=== PATIENT | male | born 1935 | race Caucasian/White ===

== ENCOUNTER → 2020-02-09 10:00 | Outpatient (BNVA) | payer MEDICARE, BC, SELFPAY | PROVIDERS: Visit Provider Nurse Practitioner Family | DX: E03.9 Hypothyroidism, unspecified (principal); N40.0 Benign prostatic hyperplasia without lower urinary tract symptoms; E78.5 Hyperlipidemia, unspecified; Z13.1 Encounter for screening for diabetes mellitus | CPT/HCPCS: 80053; 80061; 84443; G0103 ==

== ENCOUNTER → 2020-02-24 10:08 | Outpatient (BNVA) | payer MEDICARE, BC, SELFPAY | PROVIDERS: PCP Nurse Practitioner Family; Referring Provider Nurse Practitioner Family; Visit Provider Urology | DX: N40.0 Benign prostatic hyperplasia without lower urinary tract symptoms (principal); R97.20 Elevated prostate specific antigen [PSA]; N20.1 Calculus of ureter; N40.1 Benign prostatic hyperplasia with lower urinary tract symptoms | CPT/HCPCS: 81003; 84153 ==

== ENCOUNTER → 2020-05-23 10:18 | Outpatient (BNVA) | payer MEDICARE, BC, SELFPAY | PROVIDERS: PCP Nurse Practitioner Family; Visit Provider Urology | DX: N40.1 Benign prostatic hyperplasia with lower urinary tract symptoms (principal); R97.20 Elevated prostate specific antigen [PSA] | CPT/HCPCS: 81003; 84153 ==

== ENCOUNTER → 2020-10-12 09:43 | Outpatient (BNVA) | payer MEDICARE, BC, SELFPAY | PROVIDERS: PCP Nurse Practitioner Family; Visit Provider Nurse Practitioner Family | DX: E03.9 Hypothyroidism, unspecified (principal); E55.9 Vitamin D deficiency, unspecified; Z13.220 Encounter for screening for lipoid disorders; Z79.899 Other long term (current) drug therapy | CPT/HCPCS: 80053; 80061; 82306; 84443 ==

== ENCOUNTER → 2020-11-21 09:58 | Outpatient (BNVA) | payer MEDICARE, BC, SELFPAY | PROVIDERS: PCP Nurse Practitioner Family; Visit Provider Urology | DX: N40.1 Benign prostatic hyperplasia with lower urinary tract symptoms (principal); R97.20 Elevated prostate specific antigen [PSA] | CPT/HCPCS: 81003; 84153 ==

== ENCOUNTER → 2020-12-25 10:36 | Outpatient (BNVA) | payer MEDICARE, BC, SELFPAY | PROVIDERS: PCP Nurse Practitioner Family; Visit Provider Nurse Practitioner Family | DX: H60.90 Unspecified otitis externa, unspecified ear (principal); H60.312 Diffuse otitis externa, left ear; R97.20 Elevated prostate specific antigen [PSA] | CPT/HCPCS: 84153 ==

== ENCOUNTER → 2021-01-02 14:13 | Outpatient (BNVA) | payer MEDICARE, BC, SELFPAY | PROVIDERS: PCP Nurse Practitioner Family; Visit Provider Urology | DX: R97.20 Elevated prostate specific antigen [PSA] (principal); N40.1 Benign prostatic hyperplasia with lower urinary tract symptoms | CPT/HCPCS: 81003 ==

== ENCOUNTER → 2021-03-25 08:34 | Outpatient (BNVA) | payer MEDICARE, BC, SELFPAY | PROVIDERS: PCP Nurse Practitioner Family; Visit Provider Urology | DX: Z01.89 Encounter for other specified special examinations (principal); E03.9 Hypothyroidism, unspecified; E55.9 Vitamin D deficiency, unspecified; R97.20 Elevated prostate specific antigen [PSA] | CPT/HCPCS: 82306; 84153; 84443 ==

== ENCOUNTER → 2021-04-04 11:17 | Outpatient (BNVA) | payer MEDICARE, BC, SELFPAY | PROVIDERS: PCP Nurse Practitioner Family; Visit Provider Urology | DX: N40.1 Benign prostatic hyperplasia with lower urinary tract symptoms (principal) | CPT/HCPCS: 81003 ==

== ENCOUNTER → 2021-04-18 11:12 | Outpatient (BNVA) | payer MEDICARE, BC, SELFPAY | PROVIDERS: PCP Nurse Practitioner Family; Visit Provider Urology | DX: R97.20 Elevated prostate specific antigen [PSA] (principal) | CPT/HCPCS: 88305 ==

== ENCOUNTER 2021-05-02 08:18 | Outpatient (CLI) | payer MEDICARE, BC, SELFPAY ==
--- NOTE | 2021-05-02 08:24 | CT_ITS ---
WS: [id number] CT ABDOMEN PELVIS TECHNIQUE: Noncontrast CT of the abdomen and contrast-enhanced CT of the abdomen and pelvis with lilly nal and sagittal reformatted images. CLINICAL INFORMATION: prostate cancer COMPARISON: Bone scan May 02, 2021 DLP: 1757.[address] scans at [facility] use at least one of these dose optimization techniques: automated e xposure control; mA and/or kV adjustment per patient size (includes targeted exams where dose is matc hed to clinical indication); or iterative reconstruction. FINDINGS: Slight atelectasis in the lung bases. Partially included nodule in the right upper lobe measuring 5.7 mm. Mild diffuse fatty infiltration liver. A few tiny hepatic cysts. Normal portal vein and splenic vein. Normal gallbladder. Normal spleen. Mild fatty atrophy of the pancreas. Small low-attenuation le lucie in the tail the pancreas measuring 8 mm. Normal GE junction. Adrenal glands are normal. Normal renal parenchymal enhancement. No hydronephrosis. Small left renal cyst. Normal caliber abdominal aorta. Mild aortic calcification. Enlarged calcified prostate measuring 3.2 x 4.6 CM. Mild bladder wall thickening likely due to bladde r outlet obstruction. Normal sigmoid colon. No evidence of small or large bowel destruction. Tiny fat-containing umbilical hernia. No periaortic or retroperitoneal lymphadenopathy. No inguinal lymphadenopathy. Small fat-cont aining left inguinal hernia. Small right perirectal lymph node measuring 5 mm. Normal excretion on the delayed images. No ureteral obstruction. Moderate spondylitic changes lumbar spine. Blastic lesions visualized in the pelvis as seen on bone scan compatible with metastatic disea se. Additional blastic lesions in the lower thoracic ribs compatible with metastatic disease. Sclerot ic lesion in the posterior elements left T9 vertebral body as seen on the bone scan. Additional suspe cted blastic metastatic lesion L2 superior end plate and right T12 pedicle. Additional tiny blastic l esions in the proximal right greater than left femurs. CT/CT abdomen pelvis wo/w [id number] IMPRESSION: 1. Diffuse prostate enlargement with central calcification and evidence of boogie dder outlet obstruction. Thickening of the seminal vesicles bilaterally. 2. Evidence of bony metastatic disease corresponding to the bone scan findings 3. 5.7 mm partially visualized nodule right upper lobe. Recommend further eval uation with CT chest. 4. Small right perirectal lymph node measuring 5 mm. 5. Small low-attenuation lesion in the tail of the pancreas measuring 8 mm. Re commend 3 month follow-up contrast enhanced CT abdomen pelvis versus further ev aluation with MRI pancreas without and with gadolinium enhancement. 6. No hydronephrosis in either kidney. Normal renal excretion. 7. Fat-containing left inguinal hernia.
--- NOTE | 2021-05-02 08:24 | NM_ITS ---
WS: [id number] NUCLEAR MEDICINE BONE SCAN Radiopharmaceutical: 26.6 Tc-99m MDP mCi IV Injection site: Antecubital Postinjection imaging delay: 1 hr CLINICAL INFORMATION: prostate cancer COMPARISON: None. FINDINGS: Bone lesions: Multiple metastatic lesions involving the posterior ribs bilaterally. Additional metast atic lesions involving the calvarium. Intense metastatic lesion involving the T9 vertebral body poste riorly as seen on the CT. Small focus of uptake involving the right T12 pedicle. Additional punctate foci of uptake involving the bony pelvis and more prominent involving the ilium and iliac wings bilat erally. Additional focal area of uptake involving the left mandible. Soft tissue contours: Normal. Kidneys: Normal. Other findings: Degenerative type uptake involving both AC joints and both shoulders bilaterally. NM/NM bone scan whole body* [id number] IMPRESSION: Evidence of bony metastatic disease involving the calvarium, proximal posterior ribs, lower thoracic vertebral bodies, and bony pelvis described above.
[2021-05-02 09:24] LABS: Blood Urea Nitrogen 18 mg/dL (8-23)
[2021-05-02] MEDS: iohexol 300 mg/mL 100 mL Btl IV (10:03)
--- NOTE | 2021-05-02 11:00 | XR_ITS ---
WS: [id number] THORACIC SPINE TECHNIQUE: AP and lateral views are performed. HISTORY: BONE SCAN COMPARISON COMPARISON: 05/02/2021 chest radiograph. Osteopenia and thoracolumbar scoliosis. Lobulated sclerotic area projects over the RIGHT lateral T8 v ertebral body. I suspect this is probably granulomata. The thoracic spine abnormality seen on the bon e scan is within the LEFT T9 vertebral body. Within the LEFT mid thoracic vertebral bodies no lytic o r sclerotic lesion identified. XR/XR thoracic spine 3V* [id number] IMPRESSION: Cannot confirm osteoblastic or osteolytic lesion within the LEFT T8 or T9 verte bral body radiographically.
--- NOTE | 2021-05-02 11:00 | XR_ITS ---
WS: [id number] RIBS BILATERAL TECHNIQUE: 4 views bilateral ribs CLINICAL INFORMATION: BONE SCAN COMPARISON COMPARISON: None. FINDINGS: Cardiomegaly. Tortuous thoracic aorta. Moderate chronic emphysematous changes. No acute pulmonary inf iltrates. Osteopenia. No acute appearing rib fractures. Metastatic lesions better visualized on the c oncurrent CT and bone scan. XR/XR ribs BI 3V* [id number] IMPRESSION: No acute appearing rib fractures. Metastatic lesions better visualized on the c oncurrent CT and bone scan.
== END 2021-05-02 08:19 | disposition home or self-care (01) ==
LOC: RAD 08:21
PROVIDERS: PCP Nurse Practitioner Family; Visit Provider Urology
DX: C61 Malignant neoplasm of prostate (principal); K40.90 Unilateral inguinal hernia, without obstruction or gangrene, not specified as recurrent; N40.0 Benign prostatic hyperplasia without lower urinary tract symptoms
CPT/HCPCS: 71110; 72072; 74178; 78306; 82565; 84520; A9561

== ENCOUNTER 2021-05-20 14:22 | Outpatient (CLI) | payer MEDICARE, BC, SELFPAY ==
--- NOTE | 2021-05-20 16:38 | ONC CON_ITS ---
Dr. Mensah New Patient Note Patient: Bhavin Godfrey Unit #: [id number]: 1935 Dicatated By: Mariaelena Mensah M.D.Date of Visit: May 20, 2021 Onc MED New Patient/Consult Referring Physician: Dr. Santos Valdez M.D. History of Present Illness: Mr. Bhavin Godfrey, is a 85-year-old gentleman with a history of progressive PSA and mildly abnormal FELIBERTO underwent TRUS P/biopsy on April 22, 2021, final pathology report showed large volume, [place] 5+5, 4+5, 4+4 with volumes ranging between 30 to 80%, staging work-up with CT scan of abdomen pelvis done on May 02, 2021 showed diffuse prostate enlargement with central calcification and evidence of bladder outlet obstruction. Thickening of seminal vesicle bilaterally. Evidence of bone metastatic disease in lower thoracic ribs sclerotic lesion in the posterior elements left T9 vertebral body. Additional suspected blastic metastatic lesion L2 superior endplate and right T12 pedicle. 5.7 mm partially visualized nodule upper lobe on right side. Small right perirectal lymph node measuring 5 mm. Small low-attenuation lesion in the tail of pancreas measuring 8 mm. No hydronephrosis. Bone scan done on May 02, 2021 showed multiple metastatic lesion involving posterior ribs bilaterally. Additional metastatic lesion involving calvarium. Intense metastatic lesion involving T9 vertebral body posteriorly as seen on CT scan of abdomen pelvis. Small focus of uptake involving right T12 pedicle. Additional punctate foci of uptake involving bony pelvis more prominent involving the ileum and iliac wing bilaterally. Additional focal area of uptake involving left mandible.Patient denies any mid back pain. Patient has history of chronic lower back pain for years, as per patient traction helps his back pain Patient denies any smoking alcohol use. Patient denies any weight loss, denies any hematuria, denies any focal weakness in lower extremities, denies any abdominal pain, denies any dysuria, since patient started taking tamsulosin, his urinary symptoms shows improvement. Denies any fever chills denies any nausea or vomiting denies any diarrhea or constipation. Past Medical History: Mr. Abraham medical history consists of hypothyroidism. Past Surgical History: Mr. Abraham surgical/procedural history consists of hernia repair and PROSTATE NEEDLE BIOPSY. Medications: Aspirin 1 Tablet (of 81 mg) Tablet, enteric coated Oral daily, Cholecalciferol 1 Capsule (of 125 mcg) Oral daily, Finasteride 1 Tablet (of 5 mg) Oral daily, Levothyroxine Sodium 1 Tablet (of 75 mcg) Oral daily, Multi-Vitamin/Minerals 1 Tablet Oral daily, Neuriva 1 Capsule Oral daily, Tamsulosin HCl 1 Tablet (of 0.4 mg) Capsule Oral b.i.d. Allergies: No Known Allergies. Social History: Mr. Godfrey is . Mr. Godfrey no longer smokes. He has no history of drinking. Family History: Mr. Godfrey's mother at age 97. Mr. Godfrey's father is : Cancer. Mr. Godfrey has 1 brother who is : cancer. Review Of Symptoms: Review of Systems is not available for this patient. Vital Signs: Performed on May 20, 2021 15:17: 8, 5, 26.09, 1.87 sq.m, 67 in, 95 % (LOW), 69 /min, 16 /min, 137/76 mm(hg), 98.2 F (LOW), and 166.6 lbs (HIGH). Performance Status: 0 - Fully active, able to carry on all predisease activities without restrictions. (ECOG) Physical Examination: ENMT - No mouth sores, no thrush, no jaundice, no cervical lymphadenopathy, Respiratory - Lungs are clear to auscultation, Cardiovascular - Regular rate and rhythm of heart, Abdomen - Soft, bowel sounds present, Extremities - No visible edema. Lab/Imaging: Most recent lab results are not available for this patient. 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 CT scan of abdomen pelvis Done on May 02, 2021 shows diffuse prostate enlargement with calcification and evidence of bladder outlet obstruction, no hydronephrosis in either kidney. No significant pelvic or retroperitoneal lymphadenopathy except 5 mm right perirectal lymph node. Plan: Discussed with patient regarding his disease status and treatment options, based on his pathology, PSA level, and staging scans, patient has very high risk, metastatic prostate cancer, considering his age although with excellent performance status, treatment options including but not limited to ADT alone versus ADT plus androgen receptor inhibitors or chemotherapy or observation were discussed. Although his bone scan shows low thoracic vertebral involvement but surprisingly patient is not symptomatic rather he has history of chronic lower back pain which he respond to traction at home. And there is no evidence of visceral disease. Patient is a 85-year-old gentleman with good performance status and no comorbid conditions, so we would consider ADT with month-long Casodex, 50 mg p.o. daily and Zoladex 10.8 mg every 3 months and also consider Xgeva to prevent skeletal related complication due to bone mets. And follow-up with PSA, if there is no improvement or worsening, then will consider adding either low-dose abiraterone/prednisone or enzalutamide. Mentioned about role of chemotherapy in the very high risk group but patient and his daughters are not interested at least, at this time. Will review his bone scan and CT scan of abdomen pelvis finding with radiation oncology regarding T9 vertebra involvement to see if radiation is needed as patient not symptomatic but it is a weightbearing bone. All the side effect possible benefits associated with ADT including but not limited to, hot flashes, generalized weakness and fatigue, mood swings, weight gain, gynecomastia, decreased libido were mentioned, further teaching was done by chemotherapy nurse, also discussed about role of Xgeva in skeletal related complication prevention due to bone mets, all the side effect possible benefits associate with Xgeva including hypocalcemia and mandible necrosis was mentioned. Patient and his daughter accepted the plan so we will give him prescription for Casodex 50 mg p.o. daily for 1 month which will prevent tumor flare while on Zoladex especially with lower thoracic vertebral involvement. And patient will also receive monthly Xgeva along with calcium supplement. He return to clinic in 1 month after Zoladex with CBC CMP, testosterone and PSA level. Signed By: Mariaelena Mensah M.D. <<Signature on File>>
== END 2021-05-20 14:23 | disposition home or self-care (01) ==
PROVIDERS: PCP Nurse Practitioner Family; Visit Provider Internal Medicine Hematology & Oncology
DX: Z51.11 Encounter for antineoplastic chemotherapy (principal); C61 Malignant neoplasm of prostate; C79.51 Secondary malignant neoplasm of bone; R97.21 Rising PSA following treatment for malignant neoplasm of prostate
CPT/HCPCS: 99205

== ENCOUNTER 2021-05-28 11:07 | Outpatient (CLI) | payer MEDICARE, BC, SELFPAY ==
[2021-05-28] MEDS: lidocaine 1% INJ 20 mL INJECTION (11:44)
[2021-05-28] MEDS: denosumab 120 mg SDV SUBCUT (11:46)
[2021-05-28] MEDS: goserelin acetate 10.8 mg Implant SUBCUT (11:56)
== END 2021-05-28 11:08 | disposition home or self-care (01) ==
LOC: ONCMED 11:13
PROVIDERS: PCP Nurse Practitioner Family; Visit Provider Internal Medicine Hematology & Oncology
DX: Z51.11 Encounter for antineoplastic chemotherapy (principal); C61 Malignant neoplasm of prostate; C79.51 Secondary malignant neoplasm of bone; Z79.818 Long term (current) use of other agents affecting estrogen receptors and estrogen levels
CPT/HCPCS: 96372; 96402; J0897; J9202

== ENCOUNTER 2021-06-25 11:39 | Outpatient (CLI) | payer MEDICARE, BC, SELFPAY ==
[2021-06-25 12:40] LABS: Basophils % 0.8 %; Eosinophils # 0.2 10^3/uL (0.0-0.8); Eosinophils % 4.7 %; Hematocrit 40.9 % (42.0-52.0); Hemoglobin 13.1 g/dL (11.7-16.6); Lymphocytes # 1.3 10^3/uL (0.8-4.8); Lymphocytes % 24.5 %; Mean Corpuscular Volume 87.4 fl (80-94); Mean Platelet Volume 8.9 fL (7.4-10.4); Monocytes # 0.5 10^3/uL (0.2-0.9); Monocytes % 9.1 %; Neutrophils # 3.11 10^3/uL (1.8-7.7); Neutrophils % 60.5 %; Nucleated Red Blood Cells % 0 %; Platelet Count 233 10^3/cmm (130-400); Red Blood Count 4.68 10^6/uL (4.1-5.3); Red Cell Distribution Width 15.4 % (12.1-15.1); White Blood Count 5.1 10^3/uL (4.0-10.0)
[2021-06-25 13:16] LABS: Alanine Aminotransferase 25 U/L (0-41); Albumin Level 4.4 g/dL (3.5-5.2); Alkaline Phosphatase 72 IU/L (40-130); Anion Gap 14.6 (5-19); Aspartate Amino Transferase 27 U/L (0-40); Blood Urea Nitrogen 25 mg/dL (8-23); Calcium 8.6 mg/dL (8.5-10.5); Carbon Dioxide 26 mmol/L (22-29); Chloride 100 mmol/L (98-107); Globulin 2.1 g/dL (1.3-4.6); Glucose 94 mg/dL (65-115); Osmolality Calculated 286 mOsm/kg (285-295); Potassium 4.6 mmol/L (3.5-5.1); Sodium 136 mmol/L (136-145); Testosterone Total 2.5 ng/dL (193-740); Total Bilirubin 0.5 mg/dL (0.15-1.2); Total Protein 6.5 g/dL (6.6-8.7)
[2021-06-25] MEDS: denosumab 120 mg SDV SUBCUT (14:40)
--- NOTE | 2021-06-26 17:09 | ONC FU_ITS ---
Dr. Mensah follow up note Patient: Bhavin Godfrey Unit #: [id number]: 1935 Dicatated By: Mariaelena Mensah M.D.Date of Visit:Jun 25, 2021 Onc Med Follow-up/Prog Note History of Present Illness: Mr. Bhavin Godfrey, is a 85-year-old gentleman with a history of progressive PSA and mildly abnormal FELIBERTO underwent TRUS P/biopsy on April 22, 2021, final pathology report showed large volume, Carmelo 5+5, 4+5, 4+4 with volumes ranging between 30 to 80%, staging work-up with CT scan of abdomen pelvis done on May 02, 2021 showed diffuse prostate enlargement with central calcification and evidence of bladder outlet obstruction. Thickening of seminal vesicle bilaterally. Evidence of bone metastatic disease in lower thoracic ribs sclerotic lesion in the posterior elements left T9 vertebral body. Additional suspected blastic metastatic lesion L2 superior endplate and right T12 pedicle. 5.7 mm partially visualized nodule upper lobe on right side. Small right perirectal lymph node measuring 5 mm. Small low-attenuation lesion in the tail of pancreas measuring 8 mm. No hydronephrosis. Bone scan done on May 02, 2021 showed multiple metastatic lesion involving posterior ribs bilaterally. Additional metastatic lesion involving calvarium. Intense metastatic lesion involving T9 vertebral body posteriorly as seen on CT scan of abdomen pelvis. Small focus of uptake involving right T12 pedicle. Additional punctate foci of uptake involving bony pelvis more prominent involving the ileum and iliac wing bilaterally. Additional focal area of uptake involving left mandible.Patient denies any mid back pain. Patient has history of chronic lower back pain for years, as per patient traction helps his back pain Patient denies any smoking alcohol use. Patient denies any weight loss, denies any hematuria, denies any focal weakness in lower extremities, denies any abdominal pain, denies any dysuria, since patient started taking tamsulosin, his urinary symptoms shows improvement. Denies any fever chills denies any nausea or vomiting denies any diarrhea or constipation. Started on 3 monthly Zoladex 10.8 mg on May 28, 2021 and monthly Xgeva and Casodex 50 mg p.o. daily, which was discontinued after 1 month on June 25, 2021 Came for follow-up, denies any specific complaints, no fever chills, no nausea or vomiting, no diarrhea or constipation, tolerating Zoladex/Casodex/Xgeva well, no hot flashes, no mood swings, Occasionally hip pain which is under control with Tylenol. Medications: Aspirin 1 Tablet (of 81 mg) Tablet, enteric coated Oral daily, Cholecalciferol 1 Capsule (of 125 mcg) Oral daily, Finasteride 1 Tablet (of 5 mg) Oral daily, Levothyroxine Sodium 1 Tablet (of 75 mcg) Oral daily, Multi-Vitamin/Minerals 1 Tablet Oral daily, Neuriva 1 Capsule Oral daily, Tamsulosin HCl 1 Tablet (of 0.4 mg) Capsule Oral b.i.d. Allergies: No Known Allergies. Review of Systems: Review of Systems is not available for this patient. Vital Signs: Performed on Jun 25, 2021 13:55 Height - 67.00 in Weight - 165.0 lbs (LOW) BSA - 1.86 sq.m BMI - 25.84 Temperature - 98.1 F (LOW) Pulse - 76 /min Respiration - 16 /min BP - 126/72 mm(hg) O2 Sat - 97 % Pain - 0 Fatigue - 7 Performance Status: 0 - Fully active, able to carry on all predisease activities without restrictions. (ECOG) Physical Examination: ENMT - No mouth sores, no thrush, no jaundice, Respiratory - Lungs are clear to auscultation, Cardiovascular - Regular rate and rhythm of heart, Abdomen - Soft, bowel sounds present, Extremities - No visible edema. Lab/Imaging: Most recent lab results are not available for this patient. 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 CT scan of abdomen pelvis Done on May 02, 2021 shows diffuse prostate enlargement with calcification and evidence of bladder outlet obstruction, no hydronephrosis in either kidney. No significant pelvic or retroperitoneal lymphadenopathy except 5 mm right perirectal lymph node. Started on Zoladex 10.8 mg every 3 months and monthly Xgeva on May 28, 2021 also treated with month-long Casodex till June 25, 2021 when Casodex was discontinued and being very high risk, he was started on abiraterone 250 mg p.o. daily along with prednisone 5 mg twice a day Plan: Discussed with patient regarding his labs white blood count 5.1 hemoglobin 13.1 hematocrit 40.9 platelets 233 CMP within normal limits PSA 9.20 compared to 30 at the time of diagnosis Clinically, patient doing well with no new signs symptoms suggestive of disease progression, tolerating 3 monthly Zoladex/daily Casodex/monthly Xgeva well, his follow-up lab work-up shows significant drop in his PSA, being a very high risk, Carmelo score 5+5, we will consider adding abiraterone 250 mg p.o. daily along with prednisone 5 mg p.o. twice a day, all the side effect possible benefits associated with abiraterone including but not limited to diarrhea, mineralocorticoid insufficiency, electrolyte imbalance, were mentioned, we will discontinue Casodex while continue with 3 monthly Zoladex along with monthly Xgeva, today we will proceed with his next monthly dose of Xgeva and then he will return to clinic in 1 month with CBC, CMP and PSA Signed By: Mariaelena Mensah M.D. <<Signature on File>>
== END 2021-06-25 11:40 | disposition home or self-care (01) ==
PROVIDERS: PCP Nurse Practitioner Family; Visit Provider Internal Medicine Hematology & Oncology
DX: Z51.11 Encounter for antineoplastic chemotherapy (principal); C61 Malignant neoplasm of prostate; C79.51 Secondary malignant neoplasm of bone; Z79.899 Other long term (current) drug therapy
CPT/HCPCS: 36415; 80053; 84153; 84403; 85025; 96372; 99215; J0897

== ENCOUNTER 2021-07-18 09:18 | Outpatient (CLI) | payer MEDICARE, BC, SELFPAY ==
--- NOTE | 2021-07-18 19:25 | ONC FU_ITS ---
Margret Zhu Progress Note Patient: Bhavin Godfrey Unit #: [id number]: 1935 Dicatated By: Margret Zhu N.P.Date of Visit:Jul 18, 2021 Onc MED Follow-up/Prog Note Chief Complaint: Prostate cancer History of Present Illness: Mr. Bhavin Godfrey, is a 85-year-old gentleman with a history of progressive PSA and mildly abnormal FELIBERTO underwent TRUS P/biopsy on April 22, 2021, final pathology report showed large volume, Carmelo 5+5, 4+5, 4+4 with volumes ranging between 30 to 80%, staging work-up with CT scan of abdomen pelvis done on May 02, 2021 showed diffuse prostate enlargement with central calcification and evidence of bladder outlet obstruction. Thickening of seminal vesicle bilaterally. Evidence of bone metastatic disease in lower thoracic ribs sclerotic lesion in the posterior elements left T9 vertebral body. Additional suspected blastic metastatic lesion L2 superior endplate and right T12 pedicle. 5.7 mm partially visualized nodule upper lobe on right side. Small right perirectal lymph node measuring 5 mm. Small low-attenuation lesion in the tail of pancreas measuring 8 mm. No hydronephrosis. Bone scan done on May 02, 2021 showed multiple metastatic lesion involving posterior ribs bilaterally. Additional metastatic lesion involving calvarium. Intense metastatic lesion involving T9 vertebral body posteriorly as seen on CT scan of abdomen pelvis. Small focus of uptake involving right T12 pedicle. Additional punctate foci of uptake involving bony pelvis more prominent involving the ileum and iliac wing bilaterally. Additional focal area of uptake involving left mandible.Patient denies any mid back pain. Patient has history of chronic lower back pain for years, as per patient traction helps his back pain Patient denies any smoking alcohol use. Patient denies any weight loss, denies any hematuria, denies any focal weakness in lower extremities, denies any abdominal pain, denies any dysuria, since patient started taking tamsulosin, his urinary symptoms shows improvement. Denies any fever chills denies any nausea or vomiting denies any diarrhea or constipation. Started on 3 monthly Zoladex 10.8 mg on May 28, 2021 and monthly Xgeva and Casodex 50 mg p.o. daily, which was discontinued after 1 month on June 25, 2021 Patient presents today accompanied by his daughter for education on abiraterone. He has chronic fatigue. His appetite is good. He denies sinus drainage or mouth sores. No shortness of breath, cough, chest pain. No nausea or vomiting. He has chronic joint pain especially in his hips. No headaches or dizziness. Review Of Symptoms: See above. Past Medical History: Hypothyroidism Past Surgical History: Hernia repair PROSTATE NEEDLE BIOPSY Allergies: No Known Allergies. Medications: Cholecalciferol 1 Capsule (of 125 mcg) Oral daily Finasteride 1 Tablet (of 5 mg) Oral daily Levothyroxine Sodium 1 Tablet (of 75 mcg) Oral daily Multi-Vitamin/Minerals 1 Tablet Oral daily Neuriva 1 Capsule Oral daily predniSONE 1 Tablet (of 5 mg) Oral b.i.d. Tamsulosin HCl 1 Tablet (of 0.4 mg) Capsule Oral b.i.d. Zytiga 1 Tablet (of 250 mg) Oral daily Family History: Mr. Godfrey's mother at age 97. Mr. Godfrey's father is : Cancer. Mr. Godfrey has 1 brother who is : cancer. Social History: Mr. Godfrey is . Mr. Godfrey no longer smokes. He has no history of drinking. Physical Examination: Performed on Jul 18, 2021 09:41: Height - 67.00 in, Weight - 171.6 lbs (HIGH), BSA - 1.89 sq.m, BMI - 26.88, Temperature - 97.5 F (LOW), Pulse - 60 /min, Respiration - 18 /min, BP - 135/77 mm(hg), O2 Sat - 93 % (LOW), Pain - 5, and Fatigue - 7. Performance Status: 0 - Fully active, able to carry on all predisease activities without restrictions. (ECOG) Constitutional Alert, cooperative, oriented. Mood and affect appropriate. Appears close to chronological age. Well nourished. Well developed. Respiratory Lungs are clear to auscultation without rhonchi or wheezing. Cardiovascular Regular rate and rhythm of heart without murmurs, gallops or rubs. Abdomen Non-tender, non-distended, no masses, ascites or hepatosplenomegaly. Good bowel sounds. No guarding or rebound tenderness. Extremities No edema Musculoskeletal No tenderness or swelling, normal range of motion without obvious weakness. Psychiatric Alert and oriented times three. Coherent speech. Verbalizes understanding of our discussions today. Laboratory: Most recent lab results are not available for this patient. 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 CT scan of abdomen pelvis Done on May 02, 2021 shows diffuse prostate enlargement with calcification and evidence of bladder outlet obstruction, no hydronephrosis in either kidney. No significant pelvic or retroperitoneal lymphadenopathy except 5 mm right perirectal lymph node. Started on Zoladex 10.8 mg every 3 months and monthly Xgeva on May 28, 2021 also treated with month-long Casodex till June 25, 2021 when Casodex was discontinued and being very high risk, he was started on abiraterone 250 mg p.o. daily along with prednisone 5 mg twice a day Plan: Patient presents today for education on abiraterone 250 mg daily to be taken with prednisone 5 mg p.o. twice daily. Handouts were provided to the patient and to his daughter. We discussed indications for use, side effects, and monitoring parameters. He will start treatment with abiraterone today. He will continue treatment with Xgeva monthly and Zoladex every 3 months. He is to return to the clinic in 2 weeks with CBC, CMP, and PSA. Signed By: Margret Zhu N.P. <<Signature on File>>
== END 2021-07-18 09:19 | disposition home or self-care (01) ==
PROVIDERS: PCP Nurse Practitioner Family; Visit Provider Nurse Practitioner Family
DX: C61 Malignant neoplasm of prostate (principal); C79.51 Secondary malignant neoplasm of bone; E03.9 Hypothyroidism, unspecified; Z79.899 Other long term (current) drug therapy
CPT/HCPCS: 99214

== ENCOUNTER 2021-07-25 12:33 | Outpatient (CLI) | payer MEDICARE, BC, SELFPAY | END 2021-07-25 12:34 | disposition home or self-care (01) | PROVIDERS: PCP Nurse Practitioner Family; Visit Provider Nurse Practitioner Family | DX: C61 Malignant neoplasm of prostate (principal); C79.51 Secondary malignant neoplasm of bone; E03.9 Hypothyroidism, unspecified; Z79.899 Other long term (current) drug therapy | CPT/HCPCS: 96372; J0897 ==

== ENCOUNTER 2021-07-31 08:13 | Outpatient (CLI) | payer MEDICARE, BC, SELFPAY ==
[2021-07-31 08:44] LABS: Basophils % 0.6 %; Eosinophils # 0.1 10^3/uL (0.0-0.8); Eosinophils % 1.5 %; Hematocrit 42.7 % (42.0-52.0); Hemoglobin 13.6 g/dL (11.7-16.6); Lymphocytes # 1.4 10^3/uL (0.8-4.8); Lymphocytes % 18.6 %; Mean Corpuscular HGB Conc 31.9 g/dL (30.0-36.0); Mean Corpuscular Hemoglobin 28.6 pg (28.0-34.0); Mean Corpuscular Volume 89.9 fl (80-94); Mean Platelet Volume 8.7 fL (7.4-10.4); Monocytes # 0.8 10^3/uL (0.2-0.9); Monocytes % 11.6 %; Neutrophils # 4.87 10^3/uL (1.8-7.7); Neutrophils % 67.3 %; Nucleated Red Blood Cells % 0 %; Platelet Count 260 10^3/cmm (130-400); Red Blood Count 4.75 10^6/uL (4.1-5.3); Red Cell Distribution Width 15.1 % (12.1-15.1); White Blood Count 7.2 10^3/uL (4.0-10.0)
[2021-07-31 09:15] LABS: Alanine Aminotransferase 18 U/L (0-41); Albumin Level 4.3 g/dL (3.5-5.2); Alkaline Phosphatase 58 IU/L (40-130); Aspartate Amino Transferase 18 U/L (0-40); Blood Urea Nitrogen 23 mg/dL (8-23); Calcium 9.4 mg/dL (8.5-10.5); Carbon Dioxide 30 mmol/L (22-29); Chloride 101 mmol/L (98-107); Globulin 1.9 g/dL (1.3-4.6); Glucose 84 mg/dL (65-115); Osmolality Calculated 291 mOsm/kg (285-295); Sodium 139 mmol/L (136-145); Total Bilirubin 0.6 mg/dL (0.15-1.2); Total Protein 6.2 g/dL (6.6-8.7)
--- NOTE | 2021-08-02 09:13 | ONC FU_ITS ---
Dr. Mensah follow up note Patient: Bhavin Godfrey Unit #: [id number]: 1935 Dicatated By: Mariaelena Mensah M.D.Date of Visit:Jul 31, 2021 Onc Med Follow-up/Prog Note History of Present Illness: Mr. Bhavin Godfrey, is a 85-year-old gentleman with a history of progressive PSA and mildly abnormal FELIBERTO underwent TRUS P/biopsy on April 22, 2021, final pathology report showed large volume, Carmelo 5+5, 4+5, 4+4 with volumes ranging between 30 to 80%, staging work-up with CT scan of abdomen pelvis done on May 02, 2021 showed diffuse prostate enlargement with central calcification and evidence of bladder outlet obstruction. Thickening of seminal vesicle bilaterally. Evidence of bone metastatic disease in lower thoracic ribs sclerotic lesion in the posterior elements left T9 vertebral body. Additional suspected blastic metastatic lesion L2 superior endplate and right T12 pedicle. 5.7 mm partially visualized nodule upper lobe on right side. Small right perirectal lymph node measuring 5 mm. Small low-attenuation lesion in the tail of pancreas measuring 8 mm. No hydronephrosis. Bone scan done on May 02, 2021 showed multiple metastatic lesion involving posterior ribs bilaterally. Additional metastatic lesion involving calvarium. Intense metastatic lesion involving T9 vertebral body posteriorly as seen on CT scan of abdomen pelvis. Small focus of uptake involving right T12 pedicle. Additional punctate foci of uptake involving bony pelvis more prominent involving the ileum and iliac wing bilaterally. Additional focal area of uptake involving left mandible.Patient denies any mid back pain. Patient has history of chronic lower back pain for years, as per patient traction helps his back pain Patient denies any smoking alcohol use. Patient denies any weight loss, denies any hematuria, denies any focal weakness in lower extremities, denies any abdominal pain, denies any dysuria, since patient started taking tamsulosin, his urinary symptoms shows improvement. Denies any fever chills denies any nausea or vomiting denies any diarrhea or constipation. Started on 3 monthly Zoladex 10.8 mg on May 28, 2021 and monthly Xgeva and Casodex 50 mg p.o. daily, which was discontinued after 1 month on June 25, 2021, , Being very high risk group,On July 18, 2021, abiraterone 250 mg/prednisone 5 mg twice a day was added Came for follow-up, denies any specific complaints, no fever chills, no nausea or vomiting, no diarrhea or constipation, no dysuria or hematuria, no new bony pains,,, no thrush occasionally hot flashes otherwise tolerating 3 monthly Zoladex along with recently added abiraterone/prednisone well Medications: Cholecalciferol 1 Capsule (of 125 mcg) Oral daily, Finasteride 1 Tablet (of 5 mg) Oral daily, Levothyroxine Sodium 1 Tablet (of 75 mcg) Oral daily, Multi-Vitamin/Minerals 1 Tablet Oral daily, Neuriva 1 Capsule Oral daily, predniSONE 1 Tablet (of 5 mg) Oral b.i.d., Tamsulosin HCl 1 Tablet (of 0.4 mg) Capsule Oral b.i.d., Zytiga 1 Tablet (of 250 mg) Oral daily Allergies: No Known Allergies. Review of Systems: Review of Systems is not available for this patient. Vital Signs: Performed on Jul 31, 2021 12:07 Height - 67.00 in Weight - 165.8 lbs (LOW) BSA - 1.87 sq.m BMI - 25.97 Temperature - 97.0 F (LOW) Pulse - 52 /min (LOW) Respiration - 15 /min BP - 146/81 mm(hg) (HIGH) O2 Sat - 96 % Pain - 2 Fatigue - 0 Performance Status: 0 - Fully active, able to carry on all predisease activities without restrictions. (ECOG) Physical Examination: ENMT - No mouth sores, no thrush, no jaundice, Respiratory - Lungs are clear to auscultation, Cardiovascular - Regular rate and rhythm of heart, Abdomen - Soft, bowel sounds present, Extremities - No visible edema. Lab/Imaging: Most recent lab results are not available for this patient. 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 CT scan of abdomen pelvis Done on May 02, 2021 shows diffuse prostate enlargement with calcification and evidence of bladder outlet obstruction, no hydronephrosis in either kidney. No significant pelvic or retroperitoneal lymphadenopathy except 5 mm right perirectal lymph node. Started on Zoladex 10.8 mg every 3 months and monthly Xgeva on May 28, 2021 also treated with month-long Casodex till June 25, 2021 when Casodex was discontinued and being very high risk, he was started on abiraterone 250 mg p.o. daily along with prednisone 5 mg twice a day Plan: Discussed with patient regarding his labs white blood count 7.2 hemoglobin 13.6 hematocrit 42.7 platelets 260,000 CMP within normal limits, PSA 2.75 compared to 9.24 previously Clinically, patient doing well with no new signs symptoms suggestive of disease progression, his follow-up PSA shows further improvement, now 2.75 compared to 9.24 previously, patient is tolerating 3 monthly Zoladex along with daily abiraterone/prednisone and monthly Xgeva well. He will return to clinic in 1 month with CMP and PSA and for next 3 monthly dose of Zoladex and Xgeva. Signed By: Mariaelena Mensah M.D. <<Signature on File>>
== END 2021-07-31 08:14 | disposition home or self-care (01) ==
PROVIDERS: PCP Nurse Practitioner Family; Visit Provider Internal Medicine Hematology & Oncology
DX: C61 Malignant neoplasm of prostate (principal); C79.51 Secondary malignant neoplasm of bone; E03.9 Hypothyroidism, unspecified; Z79.899 Other long term (current) drug therapy
CPT/HCPCS: 36415; 80053; 84153; 85025; 99214

== ENCOUNTER → 2021-08-13 08:14 | Outpatient (BNVA) | payer MEDICARE, BC, SELFPAY | PROVIDERS: PCP Nurse Practitioner Family; Visit Provider Nurse Practitioner Family | DX: E07.9 Disorder of thyroid, unspecified (principal); E03.9 Hypothyroidism, unspecified | CPT/HCPCS: 84443 ==

== ENCOUNTER 2021-09-02 12:13 | Oncology outpatient (recurring) (ONCR) | payer MEDICARE, BC, SELFPAY ==
[2021-09-02 13:39] LABS: Alanine Aminotransferase 26 U/L (0-41); Albumin Level 4.5 g/dL (3.5-5.2); Alkaline Phosphatase 50 IU/L (40-130); Anion Gap 15.8 (5-19); Aspartate Amino Transferase 22 U/L (0-40); Blood Urea Nitrogen 23 mg/dL (8-23); Calcium 9.5 mg/dL (8.5-10.5); Carbon Dioxide 28 mmol/L (22-29); Chloride 99 mmol/L (98-107); Globulin 1.9 g/dL (1.3-4.6); Glucose 143 mg/dL (65-115); Osmolality Calculated 294 mOsm/kg (285-295); Potassium 3.8 mmol/L (3.5-5.1); Sodium 139 mmol/L (136-145); Total Bilirubin 0.6 mg/dL (0.15-1.2); Total Protein 6.4 g/dL (6.6-8.7)
[2021-09-02] MEDS: lidocaine 1% INJ 20 mL SUBCUT (14:36)
[2021-09-02] MEDS: denosumab 120 mg SDV SUBCUT (14:50)
[2021-09-02] MEDS: goserelin acetate 10.8 mg Implant SUBCUT (14:52)
[2021-09-02 14:56] VITALS: BP 130/78; PULSE 60; RESP 16; TEMP 36.7; O2SAT 94
--- NOTE | 2021-10-09 08:00 | NM_ITS ---
WS: [id number] NUCLEAR MEDICINE WHOLE BODY BONE SCAN HISTORY: Prostate cancer mets to bone COMPARISON: 05/02/2021. TECHNIQUE: The patient was injected with 25.0 mCi of Technetium 99m HDP and serial whole-body scintig octaviano have been performed with anterior and posterior images. Moderate improvement in the metastatic bone disease since 05/02/2021. Some of the metastatic lesions pr eviously described have completely resolved and others are less intense. There are a few scattered ri b lesions. The most intense lesion on the RIGHT at T9. The uptake within the T9 vertebral body has es sentially resolved. Very minimal increased uptake within the LEFT L4 pedicle is similar to the prior study. Multiple foci within the iliac crests remain present but have improved. Calvarial lesion and L EFT cervical lesion have resolved. Majority of the rib lesions have improved. The soft tissue uptake remains normal. Good excretion from the kidneys.
== END 2021-09-24 23:59 | disposition home or self-care (01) ==
PROVIDERS: PCP Nurse Practitioner Family; Visit Provider Internal Medicine Hematology & Oncology
DX: C61 Malignant neoplasm of prostate (principal); C79.51 Secondary malignant neoplasm of bone; N40.1 Benign prostatic hyperplasia with lower urinary tract symptoms; R39.9 Unspecified symptoms and signs involving the genitourinary system; E55.9 Vitamin D deficiency, unspecified; E03.9 Hypothyroidism, unspecified
CPT/HCPCS: 80053; 84153; 96372; 96402; 99214; 99999; J0897; J9202

== ENCOUNTER 2021-10-15 08:00 | Oncology outpatient (recurring) (ONCR) | payer MEDICARE, BC, SELFPAY ==
--- NOTE | 2021-10-09 10:22 | NM_ITS ---
WS: [id number] NUCLEAR MEDICINE WHOLE BODY BONE SCAN HISTORY: Prostate cancer mets to bone COMPARISON: 05/02/2021. TECHNIQUE: The patient was injected with 25.0 mCi of Technetium 99m HDP and serial whole-body scintig octaviano have been performed with anterior and posterior images. Moderate improvement in the metastatic bone disease since 05/02/2021. Some of the metastatic lesions pr eviously described have completely resolved and others are less intense. There are a few scattered ri b lesions. The most intense lesion on the RIGHT at T9. The uptake within the T9 vertebral body has es sentially resolved. Very minimal increased uptake within the LEFT L4 pedicle is similar to the prior study. Multiple foci within the iliac crests remain present but have improved. Calvarial lesion and L EFT cervical lesion have resolved. Majority of the rib lesions have improved. The soft tissue uptake remains normal. Good excretion from the kidneys. NM/NM bone scan whole body* [id number] IMPRESSION: 1. Overall moderate improvement in the metastatic osseous lesion since 2. No new lesions. 2. The remaining metastatic lesions have either decreased in uptake or size.
[2021-10-15 08:13] LABS: Basophils % 0.3 %; Eosinophils # 0.1 10^3/uL (0.0-0.8); Eosinophils % 1.6 %; Hematocrit 39.8 % (42.0-52.0); Hemoglobin 13.2 g/dL (11.7-16.6); Lymphocytes # 1.3 10^3/uL (0.8-4.8); Lymphocytes % 23.1 %; Mean Corpuscular HGB Conc 33.2 g/dL (30.0-36.0); Mean Corpuscular Hemoglobin 31.1 pg (28.0-34.0); Mean Corpuscular Volume 93.9 fl (80-94); Mean Platelet Volume 8.7 fL (7.4-10.4); Monocytes # 0.6 10^3/uL (0.2-0.9); Monocytes % 10.3 %; Neutrophils # 3.71 10^3/uL (1.8-7.7); Neutrophils % 64.5 %; Nucleated Red Blood Cells % 0 %; Platelet Count 248 10^3/cmm (130-400); Red Blood Count 4.24 10^6/uL (4.1-5.3); Red Cell Distribution Width 13.9 % (12.1-15.1); White Blood Count 5.8 10^3/uL (4.0-10.0)
[2021-10-15 08:41] LABS: Alanine Aminotransferase 19 U/L (0-41); Albumin Level 4.1 g/dL (3.5-5.2); Alkaline Phosphatase 41 IU/L (40-130); Anion Gap 12.6 (5-19); Aspartate Amino Transferase 21 U/L (0-40); Blood Urea Nitrogen 20 mg/dL (8-23); Carbon Dioxide 29 mmol/L (22-29); Chloride 101 mmol/L (98-107); Glucose 94 mg/dL (65-115); Osmolality Calculated 290 mOsm/kg (285-295); Potassium 3.6 mmol/L (3.5-5.1); Sodium 139 mmol/L (136-145); Total Bilirubin 0.7 mg/dL (0.15-1.2); Total Protein 6.1 g/dL (6.6-8.7)
[2021-10-15 10:28] LABS: Prostate Specific Antigen 0.913 ng/mL (0-4)
[2021-10-15] MEDS: denosumab 120 mg SDV SUBCUT (10:55)
== END 2021-10-24 23:59 | disposition home or self-care (01) ==
PROVIDERS: Nurse Practitioner Family; PCP Nurse Practitioner Family; Visit Provider Internal Medicine Hematology & Oncology
DX: Z51.11 Encounter for antineoplastic chemotherapy (principal); C61 Malignant neoplasm of prostate; C79.51 Secondary malignant neoplasm of bone; N40.1 Benign prostatic hyperplasia with lower urinary tract symptoms; R39.9 Unspecified symptoms and signs involving the genitourinary system; E55.9 Vitamin D deficiency, unspecified; E03.9 Hypothyroidism, unspecified
CPT/HCPCS: 78306; 80053; 84153; 85025; 96372; 96401; 99214; A9561; J0897

== ENCOUNTER 2021-12-16 11:48 | Oncology outpatient (recurring) (ONCR) | payer MEDICARE, BC, SELFPAY ==
[2021-12-16 12:31] LABS: Basophils % 0.4 %; Eosinophils % 0.3 %; Hematocrit 42.5 % (42.0-52.0); Hemoglobin 13.5 g/dL (11.7-16.6); Lymphocytes # 1.2 10^3/uL (0.8-4.8); Lymphocytes % 15.7 %; Mean Corpuscular HGB Conc 31.8 g/dL (30.0-36.0); Mean Corpuscular Hemoglobin 30.9 pg (28.0-34.0); Mean Corpuscular Volume 97.3 fl (80-94); Mean Platelet Volume 8.8 fL (7.4-10.4); Monocytes # 0.4 10^3/uL (0.2-0.9); Monocytes % 5.7 %; Neutrophils # 5.69 10^3/uL (1.8-7.7); Neutrophils % 77.6 %; Nucleated Red Blood Cells % 0 %; Platelet Count 245 10^3/cmm (130-400); Red Blood Count 4.37 10^6/uL (4.1-5.3); Red Cell Distribution Width 12.6 % (12.1-15.1); White Blood Count 7.3 10^3/uL (4.0-10.0)
[2021-12-16 13:07] LABS: Alanine Aminotransferase 24 U/L (0-41); Alkaline Phosphatase 44 U/L (40-130); Anion Gap 13.9 (5-19); Aspartate Amino Transferase 22 U/L (0-40); Blood Urea Nitrogen 21 mg/dL (8-23); Calcium 8.9 mg/dL (8.5-10.5); Carbon Dioxide 28 mmol/L (22-29); Chloride 97 mmol/L (98-107); Globulin 2.5 g/dL (1.3-4.6); Glucose 200 mg/dL (65-115); Osmolality Calculated 289 mOsm/kg (285-295); Potassium 3.9 mmol/L (3.5-5.1); Prostate Specific Antigen 0.579 ng/mL (0-4); Sodium 135 mmol/L (136-145); Total Bilirubin 0.7 mg/dL (0.15-1.2); Total Protein 6.5 g/dL (6.6-8.7)
[2021-12-16] MEDS: denosumab 120 mg SDV SUBCUT (14:23)
[2021-12-16] MEDS: leuprolide 22.5 mg Kit IM (14:27)
== END 2021-12-25 23:59 | disposition home or self-care (01) ==
PROVIDERS: Nurse Practitioner Family; PCP Nurse Practitioner Family; Visit Provider Internal Medicine Hematology & Oncology
DX: C61 Malignant neoplasm of prostate (principal); C79.51 Secondary malignant neoplasm of bone; Z79.818 Long term (current) use of other agents affecting estrogen receptors and estrogen levels; Z79.52 Long term (current) use of systemic steroids; Z79.899 Other long term (current) drug therapy
CPT/HCPCS: 36415; 80053; 84153; 85025; 96372; 96402; 99214; 99215; J0897; J9217

== ENCOUNTER 2022-01-09 09:18 | Outpatient (CLI) | payer MEDICARE, BC, SELFPAY ==
--- NOTE | 2022-01-09 09:23 | XRR_ITS ---
PROCEDURE INFORMATION: Exam: XR Chest Exam date and time: 01/09/2022 9:30 AM Age: 86 years old Clinical indication: Dyspnea; Patient HX: HX of prostate cancer; Additional info: R06.09 - other forms of dyspnea TECHNIQUE: Imaging protocol: Radiologic exam of the chest. Views: 2 views. COMPARISON: NM bone scan whole body* [id number] 10/09/2021 8:00 AM FINDINGS: Lungs: There is minimally increased lung markings, which may be accentuated by low lung volumes or represent mild pulmonary congestion. Minimal bibasilar atelectasis. No consolidation. Pleural spaces: Unremarkable. No pleural effusion. No pneumothorax. Heart/Mediastinum: Stable cardiomediastinal silhouette. Bones/joints: Mild levocurvature of the spine and multilevel degenerative changes seen. XR/XR chest 2V* [id number] IMPRESSION: Low lung volumes versus mild pulmonary congestion.
== END 2022-01-09 09:19 | disposition home or self-care (01) ==
LOC: RAD 09:20
PROVIDERS: PCP Nurse Practitioner Family; Visit Provider Nurse Practitioner Family
DX: R06.09 Other forms of dyspnea (principal)
CPT/HCPCS: 71046; 80053; 83880; 84443

== ENCOUNTER → 2022-01-15 12:34 | Outpatient (BNVA) | payer MEDICARE, BC, SELFPAY | PROVIDERS: PCP Nurse Practitioner Family; Visit Provider Internal Medicine Cardiovascular Disease | DX: R00.1 Bradycardia, unspecified (principal); R55 Syncope and collapse; R06.02 Shortness of breath; I44.1 Atrioventricular block, second degree; R06.09 Other forms of dyspnea; E03.9 Hypothyroidism, unspecified; C61 Malignant neoplasm of prostate; Z87.891 Personal history of nicotine dependence | CPT/HCPCS: 99204 ==

== ENCOUNTER 2022-01-23 06:46 | Outpatient (CLI) | payer MEDICARE, BC, SELFPAY ==
--- NOTE | 2022-01-23 07:15 | USCV_ITS ---
Bhavin Godfrey Age: 86 Gender: M : 1935 Exam Date: 01/23/2022 07:02 Ordering Phys: Iliana Narvaez MD ([email or web address]) Technologist: CORRIE Exam Location: [facility] [place] Indication: Bradycardia, SHORTNESS OF BREATH WITH DIZZINESS BP: 112 / 66 HR: 56 Rhythm: Sinus Technical Quality: Adequate MEASUREMENTS (Male / Female) Normal Values 2D ECHO LVOT Diameter 2.0 cm LV Ejection Fraction MOD 2C 74.5 % LV Ejection Fraction 2C AL 77.7 % LA Diameter 3.8 cm LA Width 3.3 cm LA Height 5.1 cm RA Width 2.8 cm RA Height 5.0 cm Aorta at Sinotubular Diameter 3.3 cm IVC Diameter 1.4 cm M-MODE Aortic Annulus Diameter 3.7 cm LA Ao Ratio MM 0.9 MV E Point Septal Separation 0.5 cm DOPPLER AV Peak Velocity 139.0 cm/s LVOT Peak Velocity 122.0 cm/s AV Area Cont Eq vti 3.1 cm squared AV Area Cont Eq pk 2.8 cm squared MV Peak Velocity 106.0 cm/s MV Area PHT 3.0 cm squared Mitral E to A Ratio 0.8 MV E' Velocity 51.5 cm/s Mitral E to MV E' Ratio 9.0 Mitral E to LV E' Lateral Ratio 7.0 Mitral E to LV E' Septal Ratio 12.5 TR Peak Velocity 131.2 cm/s TR Peak Gradient 6.9 mmHg TR Mean Velocity 96.4 cm/s TR Mean Gradient 4.1 mmHg TR Velocity Time Integral 33.7 cm TV Peak E Velocity 77.0 cm/s Right Atrial Pressure 3.0 mmHg Pulmonary Artery Systolic Pressu 9.9 mmHg PV Peak Velocity 94.0 cm/s RV Acceleration Time 0.1 s RV Ejection Time 0.4 s RV AcT/ET 0.4 FINDINGS Left Ventricle Normal left ventricular size, systolic function and wall thickness, with no regional wall motion abnormalities. Left ventricular ejection fraction is estimated at 65 %. Normal diastolic function. Right Ventricle Normal right ventricular size and systolic function. RVSP could not be calculated due to incomplete tricuspid regurgitation velocity profile. Right Atrium Normal right atrial size. Left Atrium Normal left atrial size. Mitral Valve Structurally normal mitral valve. No mitral valve stenosis. Trace mitral valve regurgitation. Aortic Valve Mildly thickened trileaflet aortic valve. No aortic valve stenosis. Mild aortic valve regurgitation. Tricuspid Valve Structurally normal tricuspid valve. Trace tricuspid valve regurgitation. Pulmonic Valve Structurally normal pulmonic valve. No pulmonary valve stenosis. No pulmonary valve regurgitation. Pericardium No pericardial effusion. Aorta Normal size aortic root and proximal ascending aorta. IVC Normal IVC dimension with >50% respiratory change of the inferior vena cava. CONCLUSIONS 1. Normal left ventricular size, systolic function and wall thickness, with no regional wall motion abnormalities. Left ventricular ejection fraction is estimated at 65 %. Normal diastolic function. 2. Normal right ventricular size and systolic function. 3. Mild aortic valve regurgitation. 4. No prior similar studies to compare. Iliana Narvaez MD (Electronically Signed) Final Date: 23 January 2022 14:17 S
== END 2022-01-23 06:47 | disposition home or self-care (01) ==
LOC: RAD 06:47
PROVIDERS: PCP Nurse Practitioner Family; Visit Provider Internal Medicine Cardiovascular Disease
DX: R06.02 Shortness of breath (principal); R42 Dizziness and giddiness; I35.1 Nonrheumatic aortic (valve) insufficiency
CPT/HCPCS: 93306

== ENCOUNTER 2022-01-28 07:11 | Day surgery (SDC) | payer MEDICARE, BC, SELFPAY ==
[2022-01-28] VITALS (11 sets, daily range): BP systolic 120–160; BP diastolic 75–99; PULSE 60–84; RESP 16–23; TEMP 36.1–37.1; O2SAT 90–99; BMI 26.9
--- NOTE | 2022-01-28 | SCC_ITS ---
Procedure done: Dual chamber Pacemaker implantation 1525.2 seconds of fluoroscopic guidance, for a cumulative dose of 373.48 mGy, was provided to Dr. Galindo by the radiology department. C-arm images of the chest were saved for the patient's permanent record. [facility]
--- NOTE | 2022-01-28 07:20 | SC_ITS ---
WS: [id number] INTRAOPERATIVE TECHNIQUE: 2 Spot fluoroscopic images for intraoperative purposes. FLUOROSCOPY TIME: 1525 seconds CLINICAL INFORMATION: Pacemaker implantation FINDINGS: Intraoperative fluoroscopy used for dual-lead cardiac pacer placement SC/C-arm FL for Pacemaker IMPRESSION: Images obtained for intraoperative purposes.
[2022-01-28 07:59] LABS: Add Urine Microscopic? NO; Charge for UA Resulting for Rev
[2022-01-28] MEDS: sodium chloride 0.9% 1,000 ML 30 ML IV (08:02)
[2022-01-28 08:05] LABS: Bilirubin Urine Negative (Negative); Blood Urine Negative (Negative); Glucose Urine UA Negative (Normal); Ketones Urine Negative (Negative); Leukocyte Esterase Urine Negative (Negative); Nitrate Urine Negative; Protein Urine Negative (Negative); Urine Appearance Clear (CLEAR); Urine Color Yellow (Yellow); Urobilinogen Urine 0.2 mg/dL (Negative)
[2022-01-28 08:24] LABS: Basophils % 0.7 %; Eosinophils # 0.2 10^3/uL (0.0-0.8); Eosinophils % 3.5 %; Hematocrit 41.6 % (42.0-52.0); Hemoglobin 13.3 g/dL (11.7-16.6); Lymphocytes # 1.1 10^3/uL (0.8-4.8); Lymphocytes % 23.5 %; Mean Corpuscular Hemoglobin 31.1 pg (28.0-34.0); Mean Corpuscular Volume 97.4 fl (80-94); Monocytes # 0.7 10^3/uL (0.2-0.9); Monocytes % 14.1 %; Neutrophils # 2.66 10^3/uL (1.8-7.7); Neutrophils % 57.8 %; Nucleated Red Blood Cells % 0 %; Platelet Count 201 10^3/cmm (130-400); Red Blood Count 4.27 10^6/uL (4.1-5.3); Red Cell Distribution Width 12.8 % (12.1-15.1); White Blood Count 4.6 10^3/uL (4.0-10.0)
[2022-01-28 10:01] LABS: Anion Gap 12.9 (5-19); Blood Urea Nitrogen 15 mg/dL (8-23); Calcium 8.7 mg/dL (8.5-10.5); Carbon Dioxide 29 mmol/L (22-29); Chloride 102 mmol/L (98-107); Glucose 101 mg/dL (65-115); Osmolality Calculated 291 mOsm/kg (285-295); Potassium 3.9 mmol/L (3.5-5.1); Sodium 140 mmol/L (136-145)
--- NOTE | 2022-01-28 10:53 | W.PM.OPSUD ---
Surgery/Procedure H&P Update DATE OF PROCEDURE: January 28, 2022 DATE H&P PERFORMED: 01/15/21 H&P UPDATE INFORMATION: I have reviewed H&P completed within last 30 days, I have examined patient prior to procedure and No changes to prior documentation CHANGES TO PREVIOUS DOCUMENTATION: Details of risks of the procedure were carefully and frankly discussed with the patient, his sister, and son-in-law. All questions were answered. They are eager to proceed. Specific risks discussed include major bleeding, pneumothorax requiring chest tube, infection requiring device removal, need for long-term follow-up, migration of the leads requiring need for revision, and pain after surgery. PREOP DIAGNOSIS: Sick sinus syndrome PLANNED PROCEDURE: Operation Date: 01/28/22 09:00 Proposed Procedures p Pacemaker Insertion [id number],I44.1(Not Applicable) - Pantera Galindo MD
[2022-01-28] MEDS: ceFAZolin 2,000 MG in sodium chloride 0.9% (plus) 50 ML 100 MG IV ×2 (11:10→18:16)
[2022-01-28] MEDS: ceFAZolin 1,000 mg SDV 1000 MG IRRIGATION (11:47)
[2022-01-28] MEDS: lidocaine 1% INJ 20 mL XX (11:49)
--- NOTE | 2022-01-28 14:07 | XRR_ITS ---
PROCEDURE INFORMATION: Exam: XR Chest Exam date and time: 01/28/2022 2:43 PM Age: 86 years old Clinical indication: Device placement; Cardiac pacemaker placement or adjustment; Additional info: Post pacemaker insertion TECHNIQUE: Imaging protocol: Radiologic exam of the chest. Views: 1 view. COMPARISON: CR XR chest 2V* [id number] 01/09/2022 9:30 AM FINDINGS: Tubes, catheters and devices: Interval placement of left chest wall dual chamber cardiac device with leads in expected positions. Lungs: Right lower lobe pulmonary calcified granuloma. The lung bases are suboptimally assessed due to technique however the upper lungs are clear of focal consolidation. Tiny streaky left base opacities similar to prior exam suggesting atelectasis-scarring. Pleural spaces: Unremarkable. No pleural effusion. No pneumothorax. Heart/Mediastinum: Cardiac silhouette appears normal in size. No obvious vascular congestion. Vasculature: Tortuous thoracic aorta which may be slightly prominent. Chest CT may be considered if more definitive aortic assessment is required. Bones/joints: No acute osseous findings. Other findings: Single view was submitted. XR/XR chest 1V portable [id number] IMPRESSION: 1. Tortuous thoracic aorta which may be somewhat prominent. 2. No obvious acute consolidation. Suboptimal lung base assessment. Followup including lateral view may be obtained if clinically indicated.
--- NOTE | 2022-01-28 14:22 | P.ANESASSM_ITS ---
Pre-Anesthetic Assessment Height/Weight: Height 1.7 m Weight 76.657 kg Temp Pulse Resp BP Pulse Ox O2 Del Method 98.5 F 62 18 160/92 95 01/28/22 07:37 01/28/22 07:37 01/28/22 07:37 01/28/22 07:37 01/28/22 07:37 01/28/22 07:38 Preop Diagnosis: Sick sinus syndrome Operation Date: 01/28/22 09:00 Proposed Procedures p Pacemaker Insertion [id number],I44.1(Not Applicable) - Pantera Galindo MD Familial anesthetic complications: none Was Beta Ced taken within 24 hours: N/A Was Clonidine taken within 24 hours: N/A Last intake: Intake Last Liquid Date 01/27/22 Last Liquid Time 20:00 Last Solid Date 01/27/22 Last Solid Time 18:00 Social No alcohol and No tobacco Exam alert, oriented x 3 and clear to auscultation bilaterally Airway Submandibular: within normal limits Cervical ROM: within normal limits Mallampati: Class II Dentition: chipped CV/HEM Arrythmia and Hypertension Metabolic Thyroid Disease Anesthetic Plan ASA status: 3 Anesthesia: MAC Medications/Allergies Home Medications Medication Instructions Recorded Confirmed Last Taken Type multivitamin,ol-slpk-vhurbyhz 1 tab PO DAILY 02/24/20 01/28/22 01/27/22 History (Complete Multivitamin tablet) tamsulosin 0.4 mg capsule 0.4 mg PO BID #60 caps 06/18/21 01/28/22 01/27/22 Rx calcium carbonate 600 mg-vitamin 1 tab PO DAILY 10/15/21 01/28/22 01/27/22 History D3 10 mcg (400 unit) tablet (Calcium 600 + D(3)) finasteride 5 mg tablet See Rx Instructions .Route 12/24/21 01/28/22 01/27/22 Rx .COMPLEX #90 tabs trazodone 50 mg tablet 50 mg PO DAILY #30 tabs 01/09/22 01/28/22 01/26/22 Rx furosemide 20 mg tablet (Lasix) 10 mg PO QAM #30 tabs 01/10/22 01/28/22 01/27/22 Rx levothyroxine 75 mcg tablet See Rx Instructions .Route 01/14/22 01/28/22 01/28/22 05:00 Rx .COMPLEX #90 tabs Allergies Allergy/AdvReac Type Severity Reaction Status Date / Time No Known Allergies Allergy Verified 01/28/22 07:26 Current Medications Generic Name Dose Route Start Last Admin Trade Name Loyda PRN Reason Stop Dose Admin Sodium Chloride 1,000 mls @ 30 mls/hr 01/28/22 07:30 01/28/22 08:02 Sodium Chloride 0.9% IV 01/29/22 07:29 30 mls/hr .Q24H LINDA Administration PFSH Anesthesia Medical History BPH (benign prostatic hyperplasia) BPH loc w urin obs/LUTS Elevated PSA Hypothyroidism Prostate cancer 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 Father , in his 80's No problems noted. Brother Stroke Other Cancer Dementia Suicide Social History Smoking and tobacco status: former smoker (60 years ago) Alcohol intake: never Lives independently: Yes Marital status: / Current occupational status: retired History of recent travel: No Data Anesthesia : 01/28/22 07:58 01/28/22 09:11 Short CBC 01/28/22 Range/Units 07:58 WBC 4.6 (4.0-10.0) 10^3/uL Hgb 13.3 (11.7-16.6) g/dL Hct 41.6 L (42.0-52.0) % MCV 97.4 H (80-94) fl Plt Count 201 (130-400) 10^3/cmm Neut % (Auto) 57.8 % Neut # (Auto) 2.66 (1.8-7.7) 10^3/uL BMP 01/28/22 01/28/22 07:58 09:11 Sodium Cancelled 140 Potassium Cancelled 3.9 Chloride Cancelled 102 Carbon Dioxide Cancelled 29 BUN Cancelled 15 Creatinine Cancelled 0.9 Glucose Cancelled 101 Calcium Cancelled 8.7 Urine 01/28/22 Range/Units 07:33 Urine Color Yellow (Yellow) Urine Appearance Clear (CLEAR) Urine pH 7.0 (5-7) Ur Specific [place] 1.020 (1.005-1.030) Urine Protein Negative (Negative) Urine Glucose (UA) Negative (Normal) Urine Ketones Negative (Negative) Urine Nitrate Negative Urine Bilirubin Negative (Negative) Ur Leukocyte Esterase Negative (Negative) Cardiac Studies: Echocardiogram 01/23/22
--- NOTE | 2022-01-28 14:40 | P.OP_ITS ---
Operative Report Date of procedure: January 28, 2022 Pre-op diagnosis: Preop Diagnosis Sick sinus syndrome Post-op diagnosis: same Procedure done: Dual chamber Pacemaker implantation Implants: Pacing generator Atrial and Ventricular Lead Specimens removed/disposition: none Pathology: none sent Surgeon: Pantera Galindo Anesthesia: General Estimated blood loss (mL): 50 Complications: none. Post procedure xray pending Condition: stable Disposition: PACU Brief History: Mr. Godfrey is an 86 yo gentleman whom was referred for [facility] implantat ion by Dr. Narvaez. He has a history of progressive episodes of very symptomatic bradycardia with evidence for sick sinus syndrome and type II AV block. Details and risk of surgery were carefully discussed with the patient and family. Appropriate consents were signed. Procedure: Procedure: Mr. Godfrey was taken to the OR suite and placed in the supine position over a shoulder roll. He received initially conscious sedation with continuous anesthesia monitoring by. He has entire chest was sterilely prepped and draped. 1% lidocaine was infiltrated in the left subclavicular region. While in Trendelenburg position, utilizing modified seldinger technique, 2 guidewires were placed in the left subclavian vein. This was confirmed in position by fluoroscopy. Next, after infiltration with lidocaine, a subcutaneous pocket was created beginning from the exit point of the guidewire and extending laterally and inferiorly. Cautery was utilized to create the pocket just above the pectoralis musculature. Hemostasis was confirmed. An antibiotic-soaked sponge was placed in the wound. A dilator and tear-away sheath was placed over the first guidewire and advanced under fluoroscopy. Guidewire and dilator were removed. Next using a combination of curved and straight stylettes, the right ventricular lead was placed in position by fluoroscopy, though several initial attempts were unsuccessful with the lead appearing to enter the coronary sinus and coronary vein. Subsequently, we initiated general anesthesia and placed a POLO probe to allow for further visualization and confirmation of crossing of the tricuspid valve. After confirmation of adequate placement, the distal screw was extended. Interrogation was then performed confirming appropriate parameters. The tear- away sheath was then removed and the ventricular lead was sewn to the floor of the subcutaneous pocket. In a similar fashion dilator and tear-away sheath was placed over the 2nd guide wire and advanced under fluoroscopy. Guidewire and dilator were removed. Straight and curved stylettes were used to position the right atrial lead with fluoroscopy. Distal screw was extended. Interrogation was then performed. Tear-away sheath was then removed. Atrial lead was secured to the floor of the subcutaneous pocket. Pocket was irrigated with antibiotic solution and hemostasis again confirmed. Pacing generator was brought into the field, and after confirmation of hemostasis in the subcutaneous pocket, the leads were connected to the generator with appropriate capture. The entire system was interrogated by fluoroscopy. Leads and generator were secured in the pocket. Sponge and needle count was correct. The wound was then closed in 2 layers of 3-0 Vicryl suture. Skin was reapproximated in a subcuticular manner with 4-0 Monocryl suture. A pressure dressing was applied. The left arm was placed in a sling. The patient had equal breath sounds bilaterally after emergency room general anesthesia and extubation. He was then transferred to the PACU, where chest x-ray is currently pending. I did associate counsel with the family at the completion of the procedure. Following are the specifics of this system: Right ventricular lead is 58 cm and model 5076. Serial number [id number] Right atrial lead is 52 cm and is model 5076. Serial number [id number]. Ventricular lead had sensing of 9.0 mV with an impedance of 494 ohms. Threshold was 0.5 V Atrial lead had sensing of 5.3 mV with an impedance of 437 ohms. Threshold was 1.0 V. [employer] generator: Model # [id number] Serial #[id number]
--- NOTE | 2022-01-28 14:40 | SUR.PHASEI ---
1431 PT TO PACU 5 PT AWAKES TO VOICE, GOOD RESP EFFORT NOTED MONITOR 100% PACED, IV PATENT TO LT WRIST #20 NS 900ML UP AT KVO IV PIID #18 TO RT HAND LT CHEST PRESSURE DRESSING D/I PULSE TO LT ARM STRONG REGULAR, HAND PINK WARM TO TOUCH. HOB AT 40 DEGREES 1440 PT ON RA TRIAL, X RAY DONE AT BEDSIDE. MONITOR AND LT CHEST SITE UNCHANGED. BILAT SCDS ON WARM BLANKETS X 3 TO PT, PT ID BRACELET TO LT WRIST PT ID'D WITH 2 IDENTIFIERS.
--- NOTE | 2022-01-28 14:56 | SUR.PHASEI ---
PT AWAKE ALERT ORIENTED X 2 MONITOR UNCHANGED, DR SKELTON CALLED WITH X RAY, PT OK TO GO TO FLOOR, PT DAUGHTER IN WAITING ROOM UP DATED AND WILL WALK UP WITH PT AND RN.
--- NOTE | 2022-01-28 15:16 | ANE.PACU2 ---
Inpatient post-anesthesia follow up: Airway intact: Yes Vital signs: Temperature 97.3 F Pulse Rate 63 Respiratory Rate 23 Blood Pressure 139/88 Pulse Oximetry 97 Oxygen Delivery Me thod Room Air Oxygen Flow Rate 8 Fraction of Inspir ed Oxygen Hydration adequate: Yes Nausea and vomiting: No Pain level: 2 Mental status: Baseline
--- NOTE | 2022-01-28 15:31 | SUR.PHASEI ---
1515 PT TO ROOM 254 PT ASSISTED UP AND WALKED TO BED HOB REMAINS AT 40 DEGREES DRESSING D/I 1525 HANDOFF AT BEDSIDE WITH JOHN FRAZIER. PT SMILING AND TALKATIVE WITH DAUGHTER AT BEDSIDE.
[2022-01-28] MEDS: tamsulosin 0.4 mg Capsule PO (17:19)
[2022-01-28] MEDS: finasteride 5 mg Tablet PEG-TUBE (17:20)
[2022-01-28] MEDS: levothyroxine 75 mcg Tablet PO (17:20)
--- NOTE | 2022-01-28 17:33 | PC.NURSE ---
pt arrived on med surg from surgery after pacemaker placement @0250...Bambi FRAZIER took report
[2022-01-29] MEDS: ceFAZolin 2,000 MG in sodium chloride 0.9% (plus) 50 ML 100 MG IV (02:32)
[2022-01-29 04:36] VITALS: BP 124/78; PULSE 68; RESP 16; TEMP 36.8; O2SAT 93
[2022-01-29 05:53] VITALS: PULSE 64
--- NOTE | 2022-01-29 06:00 | ECG_ITS ---
[facility] Test Date: 2022-01-29 Pat Name: Bhavin Godfrey Department: Room: 254 Gender: Male Automatic Blocker: : 1935 Requested By: Pantera Galindo Order Number: [id number] Mary MD: Nae Childress M.D. Measurements Intervals Mcdonald Rate: 66 P: 50 MA: 191 QRS: -64 QRSD: 154 T: 97 QT: 473 QTc: 496 Interpretive Statements ELECTRONIC VENTRICULAR PACEMAKER ABNORMAL RHYTHM ECG No previous ECG available for comparison Electronically Signed On 01-29-2022 20:58:51 CDT by Nae Childress M.D. [id number]
--- NOTE | 2022-01-29 06:11 | P.DS_ITS ---
Discharge Providers Date of Admission: 01/28/22 07:20 Date of Discharge: January 29, 2022 Attending Provider at Admission: Pantera Galindo MD Attending Provider at Discharge: Pantera Galindo MD Primary Care Provider: KERWIN Irwin Reason for Visit Reason for Visit: Pacemaker Insertion Hospital Course Hospital Course Mr. Godfrey is an 86-year-old gentleman referred to our service for highly symptomatic and progressive bradycardia felt to be related to sick sinus syndrome along with type II AV heart block. After careful evaluation by Dr. Narvaez, pacemaker implantation was recommended. He was electively admitted yesterday as outpatient in a bed underwent dual chamber pacemaker implantation. Postoperatively, he has done well with a paced rhythm averaging 65 bpm. He underwent reinterrogation this morning with appropriate parameters identified. His incision site is clean and dry. No swelling or overall tenderness is noted. Minimal ecchymosis. New dressing was applied. He is tolerating a diet well. Postoperative discomfort is under good control. He will be discharged home today in stable condition for scheduled follow-up in [facility] in 1 week. Physical Exam Chest: OTHER: Left subclavicular incision site is clean and dry without swelling, erythema, or drainage. Only mild tenderness at surgical site. Resp: COMMON NORMALS: normal respiratory effort, No use of accessory muscles and clear to auscultation bilaterally AUSCULTATION: clear to auscultation bilaterally Cardio: COMMON NORMALS: regular rate and No murmurs present (Cardio) RATE: regular rate Extremity: COMMON NORMALS: no clubbing, cyanosis or edema Discharge Data Studies Completed and Pending Completed Studies During Hospitalization Category Date Time Status CXRP [XR chest 1V portable [id number]] Routine Exams 01/28/22 14:07 Completed Radiology Impressions C-Arm Fluoroscopy 01/28/22 07:20 IMPRESSION: Images obtained for intraoperative purposes. Chest X-Ray 01/28/22 14:07 IMPRESSION: 1. Tortuous thoracic aorta which may be somewhat prominent. 2. No obvious acute consolidation. Suboptimal lung base assessment. Followup including lateral view may be obtained if clinically indicated. Laboratory Results WBC 4.6 10^3/uL (4.0-10.0) 01/28/22 07:58 RBC 4.27 10^6/uL (4.1-5.3) 01/28/22 07:58 Hgb 13.3 g/dL (11.7-16.6) 01/28/22 07:58 Hct 41.6 % (42.0-52.0) L 01/28/22 07:58 MCV 97.4 fl (80-94) H 01/28/22 07:58 MCH 31.1 pg (28.0-34.0) 01/28/22 07:58 MCHC 32.0 g/dL (30.0-36.0) 01/28/22 07:58 RDW 12.8 % (12.1-15.1) 01/28/22 07:58 Plt Count 201 10^3/cmm (130-400) 01/28/22 07:58 MPV 9.0 fL (7.4-10.4) 01/28/22 07:58 Neut % (Auto) 57.8 % 01/28/22 07:58 Lymph % (Auto) 23.5 % 01/28/22 07:58 [place] % (Auto) 14.1 % 01/28/22 07:58 Eos % (Auto) 3.5 % 01/28/22 07:58 Baso % (Auto) 0.7 % 01/28/22 07:58 Neut # (Auto) 2.66 10^3/uL (1.8-7.7) 01/28/22 07:58 Lymph # (Auto) 1.1 10^3/uL (0.8-4.8) 01/28/22 07:58 [place] # (Auto) 0.7 10^3/uL (0.2-0.9) 01/28/22 07:58 Eos # (Auto) 0.2 10^3/uL (0.0-0.8) 01/28/22 07:58 Baso # (Auto) 0.0 10^3/uL (0.0-0.1) 01/28/22 07:58 Nucleated RBC % (auto) 0 % 01/28/22 07:58 Nucleated RBCs # 0.0 /100WBC 01/28/22 07:58 Sodium 140 mmol/L (136-145) 01/28/22 09:11 Potassium 3.9 mmol/L (3.5-5.1) 01/28/22 09:11 Chloride 102 mmol/L (98-107) 01/28/22 09:11 Carbon Dioxide 29 mmol/L (22-29) 01/28/22 09:11 Anion Gap 12.9 (5-19) 01/28/22 09:11 BUN 15 mg/dL (8-23) 01/28/22 09:11 Creatinine 0.9 mg/dL (0.7-1.2) 01/28/22 09:11 GFR Calculation Not Reportable 01/28/22 09:11 Glucose 101 mg/dL (65-115) 01/28/22 09:11 Calculated Osmolality 291 mOsm/kg (285-295) 01/28/22 09:11 Calcium 8.7 mg/dL (8.5-10.5) 01/28/22 09:11 Urine Color Yellow (Yellow) 01/28/22 07:33 Urine Appearance Clear (CLEAR) 01/28/22 07:33 Urine pH 7.0 (5-7) 01/28/22 07:33 Ur Specific [place] 1.020 (1.005-1.030) 01/28/22 07:33 Urine Protein Negative (Negative) 01/28/22 07:33 Urine Glucose (UA) Negative (Normal) 01/28/22 07:33 Urine Ketones Negative (Negative) 01/28/22 07:33 Urine Blood Negative (Negative) 01/28/22 07:33 Urine Nitrate Negative 01/28/22 07:33 Urine Bilirubin Negative (Negative) 01/28/22 07:33 Urine Urobilinogen 0.2 mg/dL (Negative) 01/28/22 07:33 Ur Leukocyte Esterase Negative (Negative) 01/28/22 07:33 Procedures Performed Dual-chamber pacemaker implantation on January 28, 2022 Vitals Last Vital Signs Temp 98.3 F 01/29/22 04:36 Pulse 64 01/29/22 05:53 Resp 16 01/29/22 04:36 BP 124/78 01/29/22 04:36 Pulse Ox 93 01/29/22 04:36 O2 Del Method 01/29/22 04:36 O2 Flow Rate 8 01/28/22 14:35 Discharge Plan Discharge Patient Disposition: Home Condition: Stable Prescriptions: New hydrocodone-acetaminophen 5-325 mg Tablet 1 tab PO Q6H PRN (Reason: Moderate Pain) Qty: 12 0RF hydrocodone-acetaminophen 5-325 mg tablet 1 tab PO Q6H PRN (Reason: pain) Qty: 12 0RF sulfamethoxazole-trimethoprim [Bactrim DS] 800-160 mg tablet 1 tab PO BID Qty: 6 0RF Continued Complete Multivitamin Tablet 1 tab PO DAILY trazodone 50 mg tablet 50 mg PO DAILY Qty: 30 0RF levothyroxine 75 mcg tablet See Rx Instructions .ROUTE .COMPLEX Qty: 90 1RF Dose Instruction: TAKE 1 TABLET BY MOUTH ONCE DAILY . NEED APPOINTMENT/LABS FOR FUTURE REFILLS Rx Instructions: TAKE 1 TABLET BY MOUTH ONCE DAILY . calcium carbonate-vitamin D3 [Calcium 600 + D(3)] 600 mg-10 mcg (400 unit) tablet 1 tab PO DAILY tamsulosin 0.4 mg capsule 0.4 mg PO BID Qty: 60 12RF finasteride 5 mg tablet See Rx Instructions .ROUTE .COMPLEX Qty: 90 3RF Dose Instruction: Take 1 tablet by mouth once daily Rx Instructions: Take 1 tablet by mouth once daily furosemide [Lasix] 20 mg tablet 10 mg PO QAM Qty: 30 0RF Discharge Orders: Discharge Order (Routine); Ordered 01/29/22 Ordered By: Pantera Galindo Referrals: [facility] [Provider Group] - 1 week (Pacemaker Clinic) Discharge Diet: Usual diet Discharge Activity: Limit activity as instructed Patient Instructions: Opioid Safety Activity Restrictions/Additional Instructions: Do not raise left arm above eye level for 1 week No lifting or pulling more than 5 pounds with left arm for 1 week May begin showers in 2 days without dressing. May leave dressing off after 2 days or recover incision if desired to prevent irritation from clothing. No swimming or tub baths x2 weeks Report any increasing pain, swelling, redness, or drainage from incision. Discharge Attestations Time Spent in Discharge Care*: less than 30 min Specific Discharge Activities: educating patient, educating and/or supporting family/caregiver, documenting/other paperwork and evaluating patient/reviewing data Status at Discharge: Cognitive status at discharge: cognitively intact , Behavioral status at discharge: cooperative , Functional status at discharge: independent ambulation , Overall status at discharge: patient is back to [facility] Quality Metrics Clinical Quality Measures [ No reported AMI, CVA or VTE this stay] Coding Level of Care Code Acute Chg FW DC note
[2022-01-29] MEDS: FUROsemide 20 mg Tablet 10 MG PO (06:15)
[2022-01-29 07:50] VITALS: PULSE 64
[2022-01-29 08:00] VITALS: BP 162/90; PULSE 62; RESP 16; TEMP 36.6; O2SAT 93
[2022-01-29] MEDS: finasteride 5 mg Tablet PO (08:39)
[2022-01-29] MEDS: levothyroxine 75 mcg Tablet PO (08:39)
[2022-01-29] MEDS: pantoprazole DR 40 mg Tablet PO (08:40)
[2022-01-29] MEDS: tamsulosin 0.4 mg Capsule PO (08:40)
[2022-01-29 08:55] VITALS: BP 158/82; PULSE 62; RESP 16; TEMP 36.6; O2SAT 93
--- NOTE | 2022-01-29 09:22 | PC.CHAP ---
Pastoral Care Encounter/Spiritual Assessment Type of Contact [] Declined hooker off visit [] Patient/Family/Request visit [] Outpatient visit [] Follow-up visit [] Physician referral [] Code/Alert [x] Routine visit [] Staff referral [] Actively dying [] Patient sleeping [] Family support [] [] Out of room [] Palliative care [] [x] Receiving care in room [] Pre-surgical visit [] Trauma [] Long length of stay [] ICU visit [] Other: Relational/Emotional Strength [] Patient feels connected with others/family/visitors/staff [] Distress [] Loneliness/isolation [] Abandonment Spirituality of Patient [] Person of Amber [] Attends Nondenominational of their Amber [] Believes in Prayer [] Reads Bible or Anabaptism materials [] There are Spiritual issues to be addressed Lining Presser Interventions [] Prayer [] Active listening [] Non-anxious presence [] Spiritual/emotional support [] Crisis/trauma care [] Spiritual counseling [] Bereavement support [] Provided bereavement packet [] Provided Bible/devotional materials [] Provided toy/stuffed animal, coloring book to patient or family member [] Provided Communion [] Anointing/[place] [] Salvation [] Completed spiritual assessment [] Other: Impact on Illness or Injury [] Angry [] Fearful [] Anxious [] Often cries [] Exhaustion [] Unable to work [] Unable to attend uatsdin [] Unable to walk/stand [] Unable to read [] Unable to drive [] Unable to eat/drink [] Unable to sleep [] Unable to be with family [] Patient intubated [] Other: Summary Time spent with patient
--- NOTE | 2022-01-29 09:46 | PC.OT ---
OT EVALUATION ORDERS RECEIVED. PATIENT DISCHARGED BEFORE EVALUATION COULD BE COMPLETED.
== END 2022-01-29 09:00 | disposition home or self-care (01) ==
LOC: OR 07:16 → MEDSURG 23:25
PROVIDERS: Anesthesiology; PCP Nurse Practitioner Family; Visit Provider Thoracic Surgery (Cardiothoracic Vascular Surgery)
PROC: (CPT 33208; principal; 2022-01-28 08:50)
DX: I49.5 Sick sinus syndrome (principal); I10 Essential (primary) hypertension; N40.1 Benign prostatic hyperplasia with lower urinary tract symptoms; N13.8 Other obstructive and reflux uropathy; E03.9 Hypothyroidism, unspecified; Z85.46 Personal history of malignant neoplasm of prostate; Z87.891 Personal history of nicotine dependence; Z85.830 Personal history of malignant neoplasm of bone
CPT/HCPCS: 33208; 36415; 71045; 76000; 80048; 81003; 85025; 93005; C1785; C1786; J0690; J2704; J3010; J3490; J7030

== ENCOUNTER → 2022-02-05 09:58 | Outpatient (BNVA) | payer MEDICARE, BC, SELFPAY | PROVIDERS: PCP Nurse Practitioner Family; Visit Provider Nurse Practitioner Family | DX: Z95.0 Presence of cardiac pacemaker (principal) | CPT/HCPCS: 93280; 99213; 99214 ==

== ENCOUNTER 2022-02-26 10:40 | Oncology outpatient (recurring) (ONCR) | payer MEDICARE, BC, SELFPAY ==
[2022-02-26 11:10] LABS: Basophils % 0.7 %; Eosinophils # 0.3 10^3/uL (0.0-0.8); Eosinophils % 4.5 %; Hematocrit 40.1 % (42.0-52.0); Hemoglobin 12.9 g/dL (11.7-16.6); Lymphocytes # 1.5 10^3/uL (0.8-4.8); Lymphocytes % 25.2 %; Mean Corpuscular HGB Conc 32.2 g/dL (30.0-36.0); Mean Corpuscular Hemoglobin 30.9 pg (28.0-34.0); Mean Corpuscular Volume 95.9 fl (80-94); Mean Platelet Volume 8.4 fL (7.4-10.4); Monocytes # 0.6 10^3/uL (0.2-0.9); Monocytes % 10.4 %; Neutrophils # 3.39 10^3/uL (1.8-7.7); Nucleated Red Blood Cells % 0 %; Platelet Count 215 10^3/cmm (130-400); Red Blood Count 4.18 10^6/uL (4.1-5.3); White Blood Count 5.8 10^3/uL (4.0-10.0)
[2022-02-26 11:41] LABS: Alanine Aminotransferase 45 U/L (0-41); Alkaline Phosphatase 45 U/L (40-130); Anion Gap 12.3 (5-19); Aspartate Amino Transferase 34 U/L (0-40); Blood Urea Nitrogen 19 mg/dL (8-23); Calcium 9.5 mg/dL (8.5-10.5); Carbon Dioxide 30 mmol/L (22-29); Chloride 100 mmol/L (98-107); Globulin 2.3 g/dL (1.3-4.6); Glucose 91 mg/dL (65-115); Osmolality Calculated 288 mOsm/kg (285-295); Potassium 4.3 mmol/L (3.5-5.1); Prostate Specific Antigen 0.117 ng/mL (0-4); Sodium 138 mmol/L (136-145); Total Bilirubin 0.4 mg/dL (0.15-1.2); Total Protein 6.3 g/dL (6.6-8.7)
== END 2022-03-26 23:59 | disposition home or self-care (01) ==
PROVIDERS: PCP Nurse Practitioner Family; Visit Provider Internal Medicine Hematology & Oncology
DX: C61 Malignant neoplasm of prostate (principal); C79.51 Secondary malignant neoplasm of bone; Z79.818 Long term (current) use of other agents affecting estrogen receptors and estrogen levels; Z79.52 Long term (current) use of systemic steroids; Z79.899 Other long term (current) drug therapy
CPT/HCPCS: 36415; 80053; 84153; 85025; 99214

== ENCOUNTER → 2022-02-28 08:02 | Outpatient (BNVA) | payer MEDICARE, BC, SELFPAY | PROVIDERS: PCP Nurse Practitioner Family; Visit Provider Internal Medicine Cardiovascular Disease | DX: Z45.010 Encounter for checking and testing of cardiac pacemaker pulse generator [battery] (principal) | CPT/HCPCS: 93280 ==

== ENCOUNTER 2022-03-27 10:23 | Oncology outpatient (recurring) (ONCR) | payer MEDICARE, BC, SELFPAY ==
[2022-03-27 10:46] LABS: Basophils % 0.3 %; Eosinophils # 0.1 10^3/uL (0.0-0.8); Eosinophils % 1.3 %; Hematocrit 40.3 % (42.0-52.0); Lymphocytes # 1.1 10^3/uL (0.8-4.8); Lymphocytes % 18.4 %; Mean Corpuscular HGB Conc 32.3 g/dL (30.0-36.0); Mean Corpuscular Hemoglobin 30.8 pg (28.0-34.0); Mean Corpuscular Volume 95.5 fl (80-94); Mean Platelet Volume 8.5 fL (7.4-10.4); Monocytes # 0.5 10^3/uL (0.2-0.9); Neutrophils # 4.37 10^3/uL (1.8-7.7); Neutrophils % 71.7 %; Nucleated Red Blood Cells % 0 %; Platelet Count 241 10^3/cmm (130-400); Red Blood Count 4.22 10^6/uL (4.1-5.3); Red Cell Distribution Width 11.9 % (12.1-15.1); White Blood Count 6.1 10^3/uL (4.0-10.0)
[2022-03-27 11:17] LABS: Alanine Aminotransferase 25 U/L (0-41); Albumin Level 4.2 g/dL (3.5-5.2); Alkaline Phosphatase 46 U/L (40-130); Anion Gap 15.1 (5-19); Aspartate Amino Transferase 21 U/L (0-40); Blood Urea Nitrogen 21 mg/dL (8-23); Calcium 9.4 mg/dL (8.5-10.5); Carbon Dioxide 30 mmol/L (22-29); Chloride 97 mmol/L (98-107); Globulin 2.4 g/dL (1.3-4.6); Glucose 103 mg/dL (65-115); Osmolality Calculated 289 mOsm/kg (285-295); Potassium 4.1 mmol/L (3.5-5.1); Prostate Specific Antigen 0.132 ng/mL (0-4); Sodium 138 mmol/L (136-145); Testosterone Total 2.5 ng/dL (193-740); Total Bilirubin 0.6 mg/dL (0.15-1.2); Total Protein 6.6 g/dL (6.6-8.7)
[2022-03-27] MEDS: lidocaine 1% INJ 20 mL MDV (mL) SUBCUT (13:33)
[2022-03-27] MEDS: denosumab 120 mg SDV SUBCUT (13:33)
[2022-03-27] MEDS: goserelin acetate 10.8 mg Implant SUBCUT (13:34)
== END 2022-04-26 23:59 | disposition home or self-care (01) ==
PROVIDERS: PCP Nurse Practitioner Family; Visit Provider Internal Medicine Hematology & Oncology
DX: Z51.11 Encounter for antineoplastic chemotherapy (principal); C61 Malignant neoplasm of prostate; R53.1 Weakness; M25.551 Pain in right hip; Z79.818 Long term (current) use of other agents affecting estrogen receptors and estrogen levels; C79.51 Secondary malignant neoplasm of bone; N32.0 Bladder-neck obstruction; M54.50 Low back pain, unspecified; Z79.52 Long term (current) use of systemic steroids; Z79.891 Long term (current) use of opiate analgesic; Z79.899 Other long term (current) drug therapy
CPT/HCPCS: 80053; 84153; 84403; 85025; 96372; 96402; 99214; J0897; J9202

== ENCOUNTER → 2022-04-16 13:36 | Outpatient (BNVA) | payer MEDICARE, BC, SELFPAY | PROVIDERS: PCP Nurse Practitioner Family; Visit Provider Internal Medicine Cardiovascular Disease | DX: R06.09 Other forms of dyspnea (principal); I44.1 Atrioventricular block, second degree; R00.1 Bradycardia, unspecified; Z95.0 Presence of cardiac pacemaker; E03.9 Hypothyroidism, unspecified; C61 Malignant neoplasm of prostate; Z87.891 Personal history of nicotine dependence | CPT/HCPCS: 99214 ==

== ENCOUNTER 2022-04-22 14:31 | Outpatient (CLI) | payer MEDICARE, BC, SELFPAY ==
[2022-04-22] MEDS: iohexol 350 mg/mL 500 mL Btl (per mL) IV ×2 (15:34→15:38)
--- NOTE | 2022-04-22 16:00 | CT_ITS ---
WS: [id number] CT PELVIS WITH CONTRAST. HISTORY: Right-sided hip pain and low back pain. History of prostate cancer with metastasis. TECHNIQUE: Contiguous imaging is performed of the pelvis with contrast. Coronal and sagittal reformat s are reviewed. All CT scans at [facility] use at least one of these dose optimization techni ques: automated exposure control; mA and/or kV adjustment per patient size (includes targeted exams w here dose is matched to clinical indication); or iterative reconstruction. DLP: 806.82 mGy.cm Contrast: Omnipaque 350, 75 mL IV. COMPARISON: Prior CT 05/02/2021 and bone scan 10/09/2021. 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 Additional previously described osseous metasta tic sites have increased in size. There are numerous small osteoblastic metastatic sites with the lar gest on the RIGHT measuring 9 mm. Largest on the LEFT measuring 23 mm. Some of these were present on the prior examination of 05/02/2021 but these have increased in size and number since. Some of these si baldev were evident on the recent bone scan. There are a few very small sclerotic foci within the RIGHT hip which are more prominent than on the prior CT suggesting metastatic sites and not bone islands. Small sclerotic foci in the posterior LEFT acetabulum. Osteoblastic focus along the superior S1 verte bral body. No pathological fracture. Mild atherosclerosis distal aorta and iliac arteries. Diffuse bladder wall thickening with mild encro achment into the bladder from the prostate gland. Inguinal canals are patent bilaterally containing f at only. No adenopathy. CT/CT pelvis w con* [id number] IMPRESSION: 1. Increase in size and number of osteoblastic metastatic disease within the p [place] most significant within the iliac wings. Metastatic sites have increased since the CT of 05/02/2021 and also the bone scan of 10/09/2021. 2. No pathological fractures.
--- NOTE | 2022-04-22 16:30 | CT_ITS ---
WS: [id number] CT LUMBAR SPINE TECHNIQUE: Contrast-enhanced CT of the lumbar spine with coronal and sagittal reformatted images. CLINICAL INFORMATION: Pain COMPARISON: CT pelvis April 22, 2022 and bone scan October 09, 2021 DLP: [id number] scans [address] [facility] use at least one of these dose optimization techniques: automated e xposure control; mA and/or kV adjustment per patient size (includes targeted exams where dose is matc hed to clinical indication); or iterative reconstruction. FINDINGS: Multiple osteoblastic metastasis visualized in the bony pelvis described on the bony pelvis CT. Addit ional tiny blastic metastasis involving the lower thoracic and lumbar vertebral bodies. More prominen t blastic metastasis involving the RIGHT sided pedicles at T12 and L1. No high-grade central canal st enosis. Disc space narrowing throughout the lumbar spine with vacuum disc phenomenon. Endplate degene rative changes. Lumbar curve convex RIGHT. No acute compression fractures. Adrenal glands are normal. Partially visualized LEFT renal cyst. L1-L2: Mild disc bulging with slight effacement of ventral thecal sac. Spinal canal and foramen are p atent. Mild facet arthropathy. Small RIGHT foraminal protrusion with mild RIGHT foraminal narrowing. L2-L3: Disc desiccation. Mild facet arthropathy. Mild RIGHT and no significant LEFT foraminal narrowi ng. Spinal canal is patent. L3-L4: Mild disc bulging with osteophytic ridging. Narrowing of the LEFT subarticular recess. Mild to moderate LEFT and no significant RIGHT foraminal narrowing. Mild facet arthropathy. L4-L5: Mild disc bulging with osteophytic ridging. Mild central canal stenosis. Mild RIGHT greater th an LEFT foraminal narrowing. Moderate facet arthropathy with ligamentum flavum hypertrophy. L5-S1: Mild disc bulging and osteophytic ridging. Moderate RIGHT and mild LEFT bony foraminal narrowi ng. Moderate facet arthropathy. Visualized pelvic bony structures: Normal. Paravertebral soft tissues: Normal. CT/CT lumbar spine w con [id number] IMPRESSION: 1. Number and size of osteoblastic metastasis have increased since the prior s tudies described above. 2. No high-grade central canal stenosis. 3. Disc space narrowing throughout the lumbar spine with vacuum disc phenomeno n.
== END 2022-04-22 14:32 | disposition home or self-care (01) ==
LOC: RAD 14:31
PROVIDERS: PCP Nurse Practitioner Family; Visit Provider Internal Medicine Hematology & Oncology
DX: C61 Malignant neoplasm of prostate (principal); C79.51 Secondary malignant neoplasm of bone; M47.816 Spondylosis without myelopathy or radiculopathy, lumbar region; M48.061 Spinal stenosis, lumbar region without neurogenic claudication
CPT/HCPCS: 72132; 72193; Q9967

== ENCOUNTER 2022-05-19 06:00 | Oncology outpatient (recurring) (ONCR) | payer MEDICARE, BC, SELFPAY ==
[2022-05-19 10:17] LABS: Alanine Aminotransferase 17 U/L (0-41); Albumin Level 4.3 g/dL (3.5-5.2); Alkaline Phosphatase 41 U/L (40-130); Anion Gap 12.9 (5-19); Aspartate Amino Transferase 22 U/L (0-40); Blood Urea Nitrogen 21 mg/dL (8-23); Carbon Dioxide 30 mmol/L (22-29); Chloride 97 mmol/L (98-107); Globulin 2.2 g/dL (1.3-4.6); Glucose 101 mg/dL (65-115); Osmolality Calculated 285 mOsm/kg (285-295); Potassium 3.9 mmol/L (3.5-5.1); Prostate Specific Antigen 0.136 ng/mL (0-4); Sodium 136 mmol/L (136-145); Testosterone Total 2.5 ng/dL (193-740); Total Bilirubin 0.7 mg/dL (0.15-1.2); Total Protein 6.5 g/dL (6.6-8.7)
== END 2022-05-27 23:59 | disposition home or self-care (01) ==
PROVIDERS: PCP Nurse Practitioner Family; Visit Provider Internal Medicine Hematology & Oncology
DX: C61 Malignant neoplasm of prostate (principal); C79.51 Secondary malignant neoplasm of bone; Z79.52 Long term (current) use of systemic steroids; Z79.818 Long term (current) use of other agents affecting estrogen receptors and estrogen levels; Z79.899 Other long term (current) drug therapy; Z87.891 Personal history of nicotine dependence
CPT/HCPCS: 36415; 80053; 84153; 84403; 99214; 99215

== ENCOUNTER → 2022-06-06 08:10 | Outpatient (BNVA) | payer MEDICARE, BC, SELFPAY | PROVIDERS: PCP Nurse Practitioner Family; Visit Provider Internal Medicine Cardiovascular Disease | DX: Z45.010 Encounter for checking and testing of cardiac pacemaker pulse generator [battery] (principal) | CPT/HCPCS: 93296 ==

== ENCOUNTER 2022-06-19 10:00 | Oncology outpatient (recurring) (ONCR) | payer MEDICARE, BC, SELFPAY ==
--- NOTE | 2022-06-02 14:30 | N.ONRAD NP_ITS ---
Radiation Oncology Consultation Patient Name: Bhavin Godfrey Date of : 1935 Date of Service: 06/02/2022 Attending Physician: Pastor Mays M.D. Bhavin Godfrey was seen in consultation this afternoon at the request of Jacqueline Mensah M.D. for consideration of palliative radiotherapy in the management of metastatic prostate cancer. The patient was diagnosed in March of 2021 following an evaluation for progressively increasing PSA level and an abnormal digital rectal exam. The initial PSA was 30.1 ng/mL. A TRUS biopsy diagnosed an adenocarcinoma of the prostate with a [place] score of 5+ 5 (Grade Group 5). An abdominopelvic CT scan lesions within the ribs, T9 vertebral body, T12 pedicle, and L2 vertebral body. A bone scan demonstrated metastatic disease within the ribs, calvarium, T9 vertebral body, T12 pedicle, and bilateral aviva. Androgen deprivation therapy was prescribed beginning May 28, 2021 with the addition of abiraterone and prednisone in June of 2021. CT imaging obtained on April 22, 2022 reported progressive disease. A PSMA scan (independently reviewed in [facility]) ordered on May 14, 2022 identified tracer activity within the prostate gland, and multiple foci of abnormal activity in the axial skeleton (left fifth rib, ninth rib, L3 lamina, L4 vertebral body, and left iliac wing. During a follow-up medical oncology appointment, he described worsening lower back pain. He was referred for palliative radiotherapy to the lumbar spine. I discussed with Mr. Godfrey the role for palliative radiotherapy. I would recommend a 1-week course of radiation therapy. A planning CT scan will be acquired prior to beginning treatment to delineate the clinical target volumes. The potential toxicities of pelvic radiotherapy were reviewed. The patient has verbalized understanding would like to proceed as recommended. The patient???s medical treatment has been discussed with Jacqueline Mensah M.D. Signed by: Dr. Pastor Mays 06/02/2022 2:34:35 PM
--- NOTE | 2022-06-03 | CT_ITS ---
Radiation Therapy Planning CT images; total exam DLP: 1129.55 mGy-cm MTDD
--- NOTE | 2022-06-10 14:12 | ONCRAD TMN_ITS ---
Radiation Oncology Treatment Management Note Patient Name: Bhavin Godfrey Date of : 1935 Date of Service: 06/10/2022 Attending Physician: Pastor Mays M.D. Bhavin Godfrey is an 86 year-old white male diagnosed with metastatic prostate cancer. The patient was diagnosed in March of 2021 following an evaluation for progressively increasing PSA level and an abnormal digital rectal exam. The initial PSA was 30.1 ng/mL. A TRUS biopsy diagnosed an adenocarcinoma of the prostate with a Carmelo score of 5+ 5 (Grade Group 5). An abdominopelvic CT scan lesions within the ribs, T9 vertebral body, T12 pedicle, and L2 vertebral body. A bone scan demonstrated metastatic disease within the ribs, calvarium, T9 vertebral body, T12 pedicle, and bilateral aviva. Androgen deprivation therapy was prescribed beginning May 28, 2021 with the addition of abiraterone and prednisone in June of 2021. CT imaging obtained on April 22, 2022 reported progressive disease. A PSMA scan ordered on May 14, 2022 identified tracer activity within the prostate gland, and multiple foci of abnormal activity in the axial skeleton (left fifth rib, ninth rib, L3 lamina, L4 vertebral body, and left iliac wing. During a follow-up medical oncology appointment, he described worsening lower back pain. The patient has received 8 Gy of a prescribed 20 Santiago to the lumbar spine with a 3-dimensional conformal radiotherapy plan utilizing AP/PA treatment kunz. Upon review of systems, he denied any new complaints. On physical examination, the patient weighed 166 lbs. His temperature was 97.9 ???F and the blood pressure was 132/73 mmHg. His pulse was 86 bpm and the respiratory rate was 16. Continue palliative radiotherapy as prescribed. Signed by: Dr. Pastor Mays 06/10/2022 2:10:42 PM
--- NOTE | 2022-06-13 11:00 | N.ONRD TS_ITS ---
Radiation OncologyTreatment Summary Patient Name: Bhavin Godfrey Date of : 1935 Date of Service: 06/13/2022 Attending Physician: Pastor Mays M.D. Bhavin Godfrey has completed palliative radiotherapy for the management of metastatic prostate cancer. The patient was diagnosed in March of 2021 following an evaluation for progressively increasing PSA level and an abnormal digital rectal exam. The initial PSA was 30.1 ng/mL. A TRUS biopsy diagnosed an adenocarcinoma of the prostate with a [place] score of 5+ 5 (Grade Group 5). An abdominopelvic CT scan revealed lesions within the ribs, T9 vertebral body, T12 pedicle, and L2 vertebral body. A bone scan demonstrated metastatic disease within the ribs, calvarium, T9 vertebral body, T12 pedicle, and bilateral aviva. Androgen deprivation therapy was prescribed beginning May 28, 2021 with the addition of abiraterone and prednisone in June of 2021. CT imaging obtained on April 22, 2022 reported progressive disease. A PSMA scan ordered on May 14, 2022 identified tracer activity within the prostate gland, and multiple foci of abnormal activity in the axial skeleton (left fifth rib, right ninth rib, L3 lamina, L4 vertebral body, and left iliac wing). During a follow-up medical oncology appointment, he described worsening lower back pain. Daily radiotherapy was administered between the dates of June 09, 2022 through June 13, 2022. A prescribed dose of 20 Gy was delivered in 5 fractions encompassing 5 elapsed days. The L3 and L4 vertebral bodies were treated utilizing a 3-dimensional conformal radiotherapy plan with AP/PA kunz and a right lateral port. The AP field utilized a 0??? gantry angle with a collimator angle of 0???. The field size measured 6 cm x 6 cm within the X-direction and 6 cm x 6 cm within the Y-direction. The SSD measured 81.4 cm with the field delivering 203 monitor units. The PA port employed a gantry angle of 180??? and a collimator angle of 0???. The field size was 6 cm x 6 cm within X-direction and 6 cm x 6 cm within the Y-direction. The SSD was 93.1 cm with the field allocating 261 monitor units. All treatments were performed with the Betterment linear accelerator and an isocentric technique. The dose was calculated by Anisotropic Analytic Algorithm. A photon energy of 15 MV was prescribed with the plan normalized to deliver 100% of the prescription dose to 100% of the planning target volume. Signed by: Pastor Mays 06/13/2022 10:59:43 AM
[2022-06-19 10:19] LABS: Basophils % 0.4 %; Eosinophils # 0.1 10^3/uL (0.0-0.8); Eosinophils % 2.3 %; Hematocrit 38.9 % (42.0-52.0); Hemoglobin 12.9 g/dL (11.7-16.6); Lymphocytes # 0.7 10^3/uL (0.8-4.8); Lymphocytes % 13.7 %; Mean Corpuscular HGB Conc 33.2 g/dL (30.0-36.0); Mean Corpuscular Hemoglobin 31.5 pg (28.0-34.0); Mean Corpuscular Volume 95.1 fl (80-94); Mean Platelet Volume 8.4 fL (7.4-10.4); Monocytes # 0.6 10^3/uL (0.2-0.9); Monocytes % 10.9 %; Neutrophils # 3.78 10^3/uL (1.8-7.7); Neutrophils % 72.1 %; Nucleated Red Blood Cells % 0 %; Platelet Count 205 10^3/cmm (130-400); Red Blood Count 4.09 10^6/uL (4.1-5.3); White Blood Count 5.2 10^3/uL (4.0-10.0)
[2022-06-19 10:54] LABS: Alanine Aminotransferase 16 U/L (0-41); Alkaline Phosphatase 40 U/L (40-130); Aspartate Amino Transferase 21 U/L (0-40); Blood Urea Nitrogen 22 mg/dL (8-23); Calcium 9.2 mg/dL (8.5-10.5); Carbon Dioxide 31 mmol/L (22-29); Chloride 96 mmol/L (98-107); Globulin 2.2 g/dL (1.3-4.6); Glucose 101 mg/dL (65-115); Osmolality Calculated 287 mOsm/kg (285-295); Prostate Specific Antigen 0.124 ng/mL (0-4); Sodium 137 mmol/L (136-145); Total Bilirubin 0.7 mg/dL (0.15-1.2); Total Protein 6.2 g/dL (6.6-8.7)
[2022-06-19] MEDS: denosumab 120 mg SDV SUBCUT (12:08)
[2022-06-19] MEDS: lidocaine 1% INJ 20 mL SUBCUT (12:09)
[2022-06-19 12:15] VITALS: BP 124/78; PULSE 78; RESP 18; TEMP 36.6; O2SAT 98
[2022-06-19] MEDS: goserelin acetate 10.8 mg Implant SUBCUT (12:29)
== END 2022-06-24 23:59 | disposition home or self-care (01) ==
PROVIDERS: PCP Nurse Practitioner Family; Visit Provider Internal Medicine Hematology & Oncology
DX: C61 Malignant neoplasm of prostate (principal); C79.51 Secondary malignant neoplasm of bone; Z51.0 Encounter for antineoplastic radiation therapy; Z51.11 Encounter for antineoplastic chemotherapy; G89.3 Neoplasm related pain (acute) (chronic); Z79.818 Long term (current) use of other agents affecting estrogen receptors and estrogen levels; Z79.899 Other long term (current) drug therapy; Z87.891 Personal history of nicotine dependence
CPT/HCPCS: 36415; 77280; 77290; 77295; 77300; 77334; 77336; 77412; 80053; 84153; 85025; 96401; 96402; 99024; 99204; 99214; J0897; J9202

== ENCOUNTER 2022-09-01 17:35 | Outpatient (CLI) | payer MEDICARE, BC, SELFPAY ==
--- NOTE | 2022-09-01 | XRR_ITS ---
PROCEDURE INFORMATION: Exam: XR Chest Exam date and time: 09/01/2022 6:04 PM Age: 86 years old Clinical indication: Cough; Prior surgery; Surgery date: 6+ months; Surgery type: Pacer TECHNIQUE: Imaging protocol: Radiologic exam of the chest. Views: 2 views. COMPARISON: CR XR chest 1V portable [id number] 01/28/2022 2:43 PM FINDINGS: Tubes, catheters and devices: A pacemaker device is present, and its leads are in appropriate position. Lungs: There is calcified granuloma in the right mid lung. No acute pulmonary infiltrate is identified. Pleural spaces: Unremarkable. No pleural effusion. No pneumothorax. Heart/Mediastinum: Heart is within normal limits size. Bones/joints: Scoliosis and degenerative changes in the thoracic spine again identified in not significantly changed. There is focal sclerotic lesion in the acromion of the right clavicle in the lateral right 9th rib consistent with the patient's known bone metastasis. XR/XR chest 2V* [id number] IMPRESSION: 1. No acute infiltrate. 2. Stable bone metastasis.
== END 2022-09-01 17:36 | disposition home or self-care (01) ==
PROVIDERS: PCP Nurse Practitioner Family; Visit Provider Nurse Practitioner Family
DX: R05.9 Cough, unspecified (principal)
CPT/HCPCS: 71046; 87400; 87426

== ENCOUNTER → 2022-09-16 16:16 | Outpatient (BNVA) | payer MEDICARE, BC, SELFPAY | PROVIDERS: PCP Nurse Practitioner Family; Visit Provider Internal Medicine Cardiovascular Disease | DX: Z45.010 Encounter for checking and testing of cardiac pacemaker pulse generator [battery] (principal) | CPT/HCPCS: 93296 ==

== ENCOUNTER 2022-09-18 10:50 | Oncology outpatient (recurring) (ONCR) | payer MEDICARE, BC, SELFPAY ==
[2022-09-18 11:06] LABS: Basophils % 0.3 %; Eosinophils % 0.5 %; Hemoglobin 12.5 g/dL (11.7-16.6); Lymphocytes % 17.1 %; Mean Corpuscular HGB Conc 32.1 g/dL (30.0-36.0); Mean Corpuscular Hemoglobin 30.9 pg (28.0-34.0); Mean Corpuscular Volume 96.3 fl (80-94); Mean Platelet Volume 8.2 fL (7.4-10.4); Monocytes # 0.5 10^3/uL (0.2-0.9); Monocytes % 8.1 %; Neutrophils # 4.44 10^3/uL (1.8-7.7); Neutrophils % 73.7 %; Nucleated Red Blood Cells % 0 %; Platelet Count 198 10^3/cmm (130-400); Red Blood Count 4.05 10^6/uL (4.1-5.3); Red Cell Distribution Width 12.7 % (12.1-15.1)
[2022-09-18 11:38] LABS: Alanine Aminotransferase 15 U/L (0-41); Albumin Level 4.1 g/dL (3.5-5.2); Alkaline Phosphatase 42 U/L (40-130); Anion Gap 12.3 (5-19); Aspartate Amino Transferase 24 U/L (0-40); Blood Urea Nitrogen 17 mg/dL (8-23); Calcium 8.6 mg/dL (8.5-10.5); Carbon Dioxide 31 mmol/L (22-29); Chloride 99 mmol/L (98-107); Globulin 2.1 g/dL (1.3-4.6); Glucose 104 mg/dL (65-115); Osmolality Calculated 288 mOsm/kg (285-295); Potassium 4.3 mmol/L (3.5-5.1); Prostate Specific Antigen 0.079 ng/mL (0-4); Sodium 138 mmol/L (136-145); Total Bilirubin 0.8 mg/dL (0.15-1.2); Total Protein 6.2 g/dL (6.6-8.7)
[2022-09-18] MEDS: lidocaine 1% INJ 20 mL MDV (mL) SUBCUT (13:40)
[2022-09-18 13:42] VITALS: BP 114/67; PULSE 63; RESP 16; TEMP 36.3; O2SAT 96
[2022-09-18] MEDS: denosumab 120 mg SDV SUBCUT (13:42)
[2022-09-18] MEDS: goserelin acetate 10.8 mg Implant SUBCUT (13:55)
== END 2022-09-24 23:59 | disposition home or self-care (01) ==
PROVIDERS: PCP Nurse Practitioner Family; Visit Provider Internal Medicine Hematology & Oncology
DX: C61 Malignant neoplasm of prostate (principal); C79.51 Secondary malignant neoplasm of bone; Z79.52 Long term (current) use of systemic steroids; Z79.899 Other long term (current) drug therapy; Z79.818 Long term (current) use of other agents affecting estrogen receptors and estrogen levels; Z79.891 Long term (current) use of opiate analgesic
CPT/HCPCS: 36415; 80053; 84153; 85025; 96372; 96401; 96402; 99214; J0897; J9202

== ENCOUNTER → 2022-10-15 13:42 | Outpatient (BNVA) | payer MEDICARE, BC, SELFPAY | PROVIDERS: PCP Nurse Practitioner Family; Visit Provider Internal Medicine Cardiovascular Disease | DX: Z95.0 Presence of cardiac pacemaker (principal) | CPT/HCPCS: 99214 ==

== ENCOUNTER 2022-11-21 11:26 | Outpatient (CLI) | payer MEDICARE, BC, SELFPAY ==
--- NOTE | 2022-11-21 11:43 | XR_ITS ---
WS: [id number] EXAMINATION: XR lumbar spine 2-3V* [id number] L-SPINE : 3 views REASON FOR EXAM: Pain COMPARISON: None available. ORDER DATE: 11/21/2022 11:48 AM FINDINGS/IMPRESSION: There is approximately 10 degrees dextroscoliosis in the lower lumbar region. Vacuum disc degenerativ e change and narrowing are present from L3 to S1 mild degenerative changes are present at remaining l evels. There is atherosclerotic aortic change. The bony pelvis contains numerous osteoblastic sclerot ic lesions as previously noted
--- NOTE | 2022-11-21 11:43 | XR_ITS ---
WS: [email or web address] EXAMINATION: XR sacrum coccyx min 2V [id number] REASON FOR EXAM: Pain COMPARISON: Other recent imaging studies ORDER DATE: 11/21/2022 11:48 AM FINDINGS: No evidence of acute osseous change in the sacrum or coccyx. Note from previous recent reports sonya us osteoblastic irregular foci throughout the bony pelvis highly suspicious for osteoblastic metastat ic disease XR/XR sacrum coccyx min 2V [id number] IMPRESSION: As above
--- NOTE | 2022-11-21 11:43 | XR_ITS ---
WS: [email or web address] EXAMINATION: XR hip BI m 5V wo/w pel* [id number] REASON FOR EXAM: Pain COMPARISON: Other recent imaging studies ORDER DATE: 11/21/2022 11:48 AM TECHNIQUE: Frontal internal/external rotation views both hips were obtained. X-RAY FINDINGS/IMPRESSION: There are no fractures or dislocations. There are numerous varying sized osteoblastic sclerotic focal lesions throughout the bony pelvis and proximal right femur consistent with osteoblastic metastatic disease Normal motion with internal/external rotation is present. Vascular calcification noted.
== END 2022-11-21 11:27 | disposition home or self-care (01) ==
LOC: RAD 11:30
PROVIDERS: PCP Nurse Practitioner Family; Visit Provider Internal Medicine Hematology & Oncology
DX: C61 Malignant neoplasm of prostate (principal); M89.9 Disorder of bone, unspecified; M41.86 Other forms of scoliosis, lumbar region; M47.817 Spondylosis without myelopathy or radiculopathy, lumbosacral region; M25.552 Pain in left hip; M25.551 Pain in right hip; M54.50 Low back pain, unspecified; M53.3 Sacrococcygeal disorders, not elsewhere classified
CPT/HCPCS: 72100; 72220; 73523

== ENCOUNTER → 2022-11-27 08:42 | Outpatient (BNVA) | payer MEDICARE, BC, SELFPAY | PROVIDERS: PCP Nurse Practitioner Family; Visit Provider Nurse Practitioner Family | DX: E03.9 Hypothyroidism, unspecified (principal); R53.83 Other fatigue; I10 Essential (primary) hypertension; E78.5 Hyperlipidemia, unspecified; M25.50 Pain in unspecified joint | CPT/HCPCS: 80053; 80061; 82306; 84443; 85025 ==

== ENCOUNTER 2022-12-11 09:26 | Oncology outpatient (recurring) (ONCR) | payer MEDICARE, BC, SELFPAY ==
[2022-12-11 09:37] VITALS: BP 132/85; PULSE 79; RESP 18; TEMP 36.2; O2SAT 95
[2022-12-11 09:52] LABS: Basophils % 0.3 %; Eosinophils % 0.5 %; Hematocrit 40.4 % (42.0-52.0); Hemoglobin 13.3 g/dL (11.7-16.6); Lymphocytes # 1.2 10^3/uL (0.8-4.8); Lymphocytes % 15.1 %; Mean Corpuscular HGB Conc 32.9 g/dL (30.0-36.0); Mean Corpuscular Hemoglobin 31.2 pg (28.0-34.0); Mean Corpuscular Volume 94.8 fl (80-94); Mean Platelet Volume 8.4 fL (7.4-10.4); Monocytes # 0.7 10^3/uL (0.2-0.9); Neutrophils # 5.76 10^3/uL (1.8-7.7); Neutrophils % 74.8 %; Nucleated Red Blood Cells % 0 %; Platelet Count 226 10^3/cmm (130-400); Red Blood Count 4.26 10^6/uL (4.1-5.3); Red Cell Distribution Width 13.2 % (12.1-15.1); White Blood Count 7.7 10^3/uL (4.0-10.0)
[2022-12-11 10:20] LABS: Alanine Aminotransferase 20 U/L (0-41); Albumin Level 4.1 g/dL (3.5-5.2); Alkaline Phosphatase 42 U/L (40-130); Anion Gap 11.2 (5-19); Aspartate Amino Transferase 20 U/L (0-40); Blood Urea Nitrogen 18 mg/dL (8-23); Carbon Dioxide 33 mmol/L (22-29); Chloride 98 mmol/L (98-107); Globulin 2.1 g/dL (1.3-4.6); Glucose 102 mg/dL (65-115); Osmolality Calculated 288 mOsm/kg (285-295); Potassium 4.2 mmol/L (3.5-5.1); Prostate Specific Antigen 0.049 ng/mL (0-4); Sodium 138 mmol/L (136-145); Total Bilirubin 0.5 mg/dL (0.15-1.2); Total Protein 6.2 g/dL (6.6-8.7)
[2022-12-11] MEDS: lidocaine 1% INJ 20 mL MDV (mL) SUBCUT (12:13)
[2022-12-11] MEDS: denosumab 120 mg SDV SUBCUT (12:16)
[2022-12-11] MEDS: goserelin acetate 10.8 mg Implant SUBCUT (12:26)
--- NOTE | 2022-12-11 13:05 | ONCRAD EPV_ITS ---
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 Previous L spine treatment with good response. Now with new right buttock and thigh pain. Mr. Bhavin Godfrey, is a 85-year-old gentleman with a history of progressive PSA and mildly abnormal FELIBERTO underwent TRUS P/biopsy on April 22, 2021, final pathology report showed large volume, [place] 5+5, 4+5, 4+4 with volumes ranging between 30 to 80%, staging work-up with CT scan of abdomen pelvis done on May 02, 2021 showed diffuse prostate enlargement with central calcification and evidence of bladder outlet obstruction. Thickening of seminal vesicle bilaterally. Evidence of bone metastatic disease in lower thoracic ribs sclerotic lesion in the posterior elements left T9 vertebral body. Additional suspected blastic metastatic lesion L2 superior endplate and right T12 pedicle. 5.7 mm partially visualized nodule upper lobe on right side. Small right perirectal lymph node measuring 5 mm. Small low-attenuation lesion in the tail of pancreas measuring 8 mm. No hydronephrosis. Bone scan done on May 02, 2021 showed multiple metastatic lesion involving posterior ribs bilaterally. Additional metastatic lesion involving calvarium. Intense metastatic lesion involving T9 vertebral body posteriorly as seen on CT scan of abdomen pelvis. Small focus of uptake involving right T12 pedicle. Additional punctate foci of uptake involving bony pelvis more prominent involving the ileum and iliac wing bilaterally. Additional focal area of uptake involving left mandible. Patient denies any mid back pain. Patient has history of chronic lower back pain for years, as per patient traction helps his back pain Patient denies any smoking alcohol use. Patient denies any weight loss, denies any hematuria, denies any focal weakness in lower extremities, denies any abdominal pain, denies any dysuria, since patient started taking tamsulosin, his urinary symptoms shows improvement. Denies any fever chills denies any nausea or vomiting denies any diarrhea. Constipation due to oxycodone now better with docusate. Pelvis X ray revealed scattered blastic lesions in right supra acetabular pelvis, right prox femur left lateral iliac crest. Started on 3 monthly Zoladex 10.8 mg on May 28, 2021 and monthly Xgeva and Casodex 50 mg p.o. daily, which was discontinued after 1 month on June 25, 2021, , Being very high risk group,On July 18, 2021, abiraterone 250 mg/prednisone 5 mg twice a day was added Came for follow-up, denies any specific complaints, no fever chills, no nausea or vomiting, no diarrhea or constipation, no dysuria or hematuria, no new bony pains,,, no thrush occasionally hot flashes otherwise tolerating 3 monthly Zoladex along with recently added abiraterone/prednisone well Radiotherapy to Date: Course: Spine Mets 2022 Treatment Site: Lumbar Spine - L3 & L4, Ref. ID: [id number], Energy: 15X, Dose/Fx (cGy): 400, #Fx: 5 / 5, Dose Correction (cGy): 0, Total Dose (cGy): 2,000, Start Date: 06/09/2022, End Date: 06/13/2022, Elapsed Days: 4 Current History: Lumbar pain significantly improved following treatment. Now has right buttock pain radiating into the right prox thigh. Uses Oxycodone/APAP with some relief. Constipation improved with Docusate. Current Medications: Cholecalciferol, finasteride, levothyroxine Sodium, multi-Vitamin/Minerals, neuriva, oxyCODONE-Acetaminophen, predniSONE, predniSONE, tamsulosin HCl, zytiga. Allergies: No Known Allergies Vital Signs: Physical Exam: General: Alert and oriented x 3. No acute distress. HEENT: Normocephalic, atraumatic. Extraocular Movements Intact: . NECK: Supple without supraclavicular or jugular lymphadenopathy. MUSCULOSKELETAL: No tenderness or percussion pain over the right thigh or pelvis. ABDOMEN: Soft, nontender, nondistended without masses or organomegaly. Bowell sounds are present. EXTREMITIES: No peripheral edema is identified. Limited motor and sensory examination are grossly intact and symmetric bilaterally. NEUROLOGIC: Cranial nerves II ???XII are grossly intact. Gait not tested. Performance Status: ECOG PS 1 Lab: PSA 06/19/2022 0.124, 09/18/2022 0.079 12/11/2022 0.049 12/11/2022 Hb 13.3, WBC 7700, Plat 226.000, Cr 1.9 Creatinine 1.0 Ca 9.0 Pathology: Primary, c61 - malignant neoplasm of prostate, Diagnosed 05/20/2021 (active), Primary, c79.51 - secondary malignant neoplasm of bone, Diagnosed 05/20/2021 (active) and Primary, c79.51 - secondary malignant neoplasm of bone, Diagnosed 03/2021 (active). Imaging: See HPI Impression: St IV metastatic prostate cancer with symptomatic progression in right pelvis region. Low PSA level since ADT begun and may no longer reflect overall status of his disease. Plan on 20 Gy inn 5 fractions to right pelvis, acetabulum and prox femur. Discussed with patient and his daughter. Signed by: 12/11/2022 1:04:35 PM <<Signature on File>> Time spent with patient: CPT Code: CPT Code:
== END 2022-12-11 23:59 | disposition home or self-care (01) ==
PROVIDERS: Nurse Practitioner Family; PCP Nurse Practitioner Family; Visit Provider Internal Medicine Hematology & Oncology
DX: C61 Malignant neoplasm of prostate (principal); C79.51 Secondary malignant neoplasm of bone; Z79.52 Long term (current) use of systemic steroids; Z79.899 Other long term (current) drug therapy; Z79.818 Long term (current) use of other agents affecting estrogen receptors and estrogen levels; Z79.891 Long term (current) use of opiate analgesic; Z51.0 Encounter for antineoplastic radiation therapy; G89.3 Neoplasm related pain (acute) (chronic)
CPT/HCPCS: 36415; 77263; 77290; 77295; 77300; 77334; 80053; 84153; 85025; 96372; 96402; 99024; 99214; J0897; J9202

== ENCOUNTER 2022-12-19 09:46 | Oncology outpatient (recurring) (ONCR) | payer MEDICARE, BC, SELFPAY ==
--- NOTE | 2022-12-16 13:03 | ONCRAD TMN_ITS ---
Radiation Oncology Weekly Treatment Management Patient: Epifanio Panda MR#: [id number] : 1935> Attending Physician: Asad Umana Date of Service: 12/16/2022 Referring Physician(s) : Mariaelena Mensah Diagnosis: C61 - Malignant neoplasm of prostate, Diagnosed 05/20/2021 (Active) C79.51 - Secondary malignant neoplasm of bone, Diagnosed 05/20/2021 (Active) C79.51 - Secondary malignant neoplasm of bone, Diagnosed 03/2021 (Active) Radiotherapy to date: Course: Pelvis 2022, Treatment Site: RT Hip Mets, Ref. ID: [id number], Energy: 15X, Dose/Fx (cGy): 400, #Fx: 2 / 5, Dose Correction (cGy): 0, Total Dose (cGy): 800, Start Date: 12/15/2022, Elapsed Days: 1 Reason for visit: The patient is being seen today as part of their regularly scheduled weekly on treatment visits to assess for acute toxicities from radiotherapy. Review of Systems: Now pain free. No fatigue or nausea. Eating ok. Bowels ok. Urination stable. Active walking around the house. Vital Signs: Physical Exam: Imaging: Radiation therapy imaging related to accurate target localization (i.e. KV, MV and CBCT) was reviewed. Appropriate changes, if any, were made to ensure treatment accuracy. Plan: Good tolerance of treatment. Continue as planned. Telemedicine Consent Patient seen today via Telemedicine by agreement and consent of patient. Telemedicine technology used during the visit include audio and, as available, review of images. This patient encounter is appropriate and reasonable under the circumstances given the patient???s particular presentation at this time. The patient has been advised of the potential risks and limitations of this mode of treatment (including but not limited to the absence of in-person examination) and has agreed to be treated in a remote fashion in spite of them. Any and all of the patient???s/patient???s family???s questions on this issue have been answered and I have made no promises or guarantees to the patient. The patient has also been advised to contact this office for worsening conditions or problems, and seek emergency medical treatment and/or call 911 if the patient deems either necessary. Signed by: Asad Umana 12/16/2022 1:02:29 PM
== END 2022-12-25 23:59 | disposition home or self-care (01) ==
PROVIDERS: PCP Nurse Practitioner Family; Visit Provider Radiology Radiation Oncology
DX: Z51.0 Encounter for antineoplastic radiation therapy (principal); C61 Malignant neoplasm of prostate; C79.51 Secondary malignant neoplasm of bone
CPT/HCPCS: 77336; 77387; 77412

== ENCOUNTER → 2023-01-08 15:41 | Outpatient (BNVA) | payer MEDICARE, BC, SELFPAY | PROVIDERS: PCP Nurse Practitioner Family; Visit Provider Dermatology | DX: L82.1 Other seborrheic keratosis (principal); L57.0 Actinic keratosis; L72.0 Epidermal cyst | CPT/HCPCS: 10060; 17000; 17003; 99203 ==

== ENCOUNTER → 2023-02-27 08:24 | Outpatient (BNVA) | payer MEDICARE, BC, SELFPAY | PROVIDERS: PCP Nurse Practitioner Family; Visit Provider Internal Medicine Cardiovascular Disease | DX: Z95.0 Presence of cardiac pacemaker (principal); I44.1 Atrioventricular block, second degree; E03.9 Hypothyroidism, unspecified; C61 Malignant neoplasm of prostate; Z87.891 Personal history of nicotine dependence | CPT/HCPCS: 99214 ==

== ENCOUNTER 2023-03-13 13:16 | Outpatient (CLI) | payer MEDICARE, BC, SELFPAY ==
[2023-03-13] MEDS: iohexol 350 mg/mL 500 mL Btl (per mL) IV (13:24)
[2023-03-13] MEDS: iohexol 350 mg/mL 500 mL Btl (per mL) PO (13:24)
--- NOTE | 2023-03-13 14:30 | CT_ITS ---
WS: [id number] CT CHEST, ABDOMEN AND PELVIS WITH CONTRAST HISTORY: Restaging prostate cancer and bone mets. TECHNIQUE: Contiguous 5 mm axial imaging performed through the chest, abdomen and pelvis with IV cont rast, oral contrast has been provided. Coronal and sagittal reformats chest. Coronal and sagittal ref ormats through the abdomen and pelvis. All CT scans at [facility] use at least one of these d ose optimization techniques: automated exposure control; mA and/or kV adjustment per patient size (in cludes targeted exams where dose is matched to clinical indication); or iterative reconstruction. CONTRAST: Omnipaque 350; 100 mL IV. DLP: 870.48 mGy.cm COMPARISON: 04/22/2022, 05/02/2021 and PET/CT 05/12/[address]: Lung volumes are decreased due to poor inspiration. Benign granulomata. No mass. Mild atele ctasis at the lingula and LEFT lung base. No pulmonary nodule. LEFT subclavian pacer. No mediastinal or hilar adenopathy. Ectatic thoracic aorta with a diameter of 3.9 cm. Normal diameter of the descend ing aorta. Normal pulmonary artery. Heart is top limits normal size. No pericardial or pleural effusi ons. Scattered sclerotic foci consistent with osteoblastic metastatic disease within the bones of the thorax. There is involvement of the thoracic vertebral bodies and ribs. Foci within the RIGHT clavic le, humeral head and LEFT scapula. Abdomen CT: Normal size liver. There is a hepatic cyst in the LEFT lobe. Normal gallbladder and nasrin l vein. Normal spleen. 1.3 cm cyst associated with the pancreatic tail. Mild pancreatic atrophy. No a drenal mass. Mild atherosclerosis aorta. Mild atrophy of each kidney. Cortical cyst lower pole LEFT k idney. No GI tract obstruction. No adenopathy or ascites. Diffuse colon constipation without obstruction. Pelvic CT: Well-distended urinary bladder with encroachment into the base of the urinary bladder by t he prostate gland. Central prostate calcifications. No significant adenopathy within the pelvis. LEFT inguinal canal is patent containing fat only. Small osteoblastic bone lesions throughout the lumbar spine and lower thoracic spine. Sclerotic foci noted bilaterally within the pelvis and the proximal RIGHT femur. After comparing bone lesions to 05/02 there has been a progression. No obvious progression of the pelvis since 04/22/2022. IMPRESSION: 1. Patient has known osteoblastic metastatic bone disease. As compared to the prior CT of the abdomen and pelvis from 05/02/2021 there has been a progression in the osteoblastic disease. Stable bone lesio ns within the pelvis since 04/22/2022. Bone scan imaging may provide additional information concernin g areas of progression or improvement of the entire skeleton. 2. No pulmonary mass or nodule. No pneumonia. 3. Slight increase in size of the cyst within the pancreatic tail of 1.3 cm. Differential includes cy stic neoplasm, pseudocyst or IPMN. 4. No ascites or adenopathy.
== END 2023-03-13 13:17 | disposition home or self-care (01) ==
LOC: RAD 13:16
PROVIDERS: PCP Nurse Practitioner Family; Visit Provider Internal Medicine Medical Oncology
DX: C61 Malignant neoplasm of prostate (principal); C79.51 Secondary malignant neoplasm of bone; K86.2 Cyst of pancreas
CPT/HCPCS: 71260; 74177; Q9967

== ENCOUNTER 2023-03-17 08:15 | Outpatient (CLI) | payer MEDICARE, BC, SELFPAY ==
--- NOTE | 2023-03-17 08:45 | NM_ITS ---
WS: [id number] NUCLEAR MEDICINE BONE SCAN Radiopharmaceutical: 26.8 Tc-99m MDP mCi IV Injection site: Antecubital Postinjection imaging delay: 1 hr CLINICAL INFORMATION: restaging COMPARISON: 10/09/2021 FINDINGS: Bone lesions: No evidence of new or progressed metastatic disease. Small amount of residual uptake in a RIGHT lower posterior rib Soft tissue contours: Normal. Kidneys: Normal. Other findings: None. IMPRESSION: 1. No evidence of new or progressed osseous metastatic disease. 2. Small amount of residual uptake in a RIGHT lower posterior rib improved compared to previous.
== END 2023-03-17 08:16 | disposition home or self-care (01) ==
PROVIDERS: PCP Nurse Practitioner Family; Visit Provider Internal Medicine Medical Oncology
DX: C61 Malignant neoplasm of prostate (principal); C79.51 Secondary malignant neoplasm of bone
CPT/HCPCS: 78306; A9561

== ENCOUNTER 2023-03-23 08:50 | Oncology outpatient (recurring) (ONCR) | payer MEDICARE, BC, SELFPAY ==
[2023-03-05 10:39] VITALS: BP 109/67; PULSE 86; RESP 18; TEMP 36.3; O2SAT 94
[2023-03-05 10:57] LABS: Basophils % 0.3 %; Eosinophils % 0.6 %; Hematocrit 39.3 % (37-53); Lymphocytes % 14.4 %; Mean Corpuscular HGB Conc 32.6 g/dL (30-55); Mean Corpuscular Hemoglobin 31.5 pg (27-33); Mean Corpuscular Volume 96.8 fl (82-101); Mean Platelet Volume 8.2 fL (7.4-10.4); Monocytes # 0.6 10^3/uL (0.2-0.9); Monocytes % 8.4 %; Neutrophils # 5.43 10^3/uL (1.8-7.7); Neutrophils % 75.9 %; Nucleated Red Blood Cells % 0 %; Platelet Count 213 10^3/cmm (157-399); Red Blood Count 4.06 10^6/uL (3.85-5.65); Red Cell Distribution Width 12.8 % (12.1-15.1); White Blood Count 7.15 10^3/uL (3.29-11.43)
[2023-03-05 11:28] LABS: Alanine Aminotransferase 20 U/L (0-41); Albumin Level 4.3 g/dL (3.5-5.2); Alkaline Phosphatase 40 U/L (40-130); Aspartate Amino Transferase 25 U/L (0-40); Blood Urea Nitrogen 19 mg/dL (8-23); Calcium 9.5 mg/dL (8.5-10.5); Carbon Dioxide 29 mmol/L (22-29); Chloride 98 mmol/L (98-107); Globulin 2.1 g/dL (1.3-4.6); Glucose 142 mg/dL (65-115); Osmolality Calculated 291 mOsm/kg (285-295); Prostate Specific Antigen 0.036 ng/mL (0-4); Sodium 138 mmol/L (136-145); Total Bilirubin 0.8 mg/dL (0.15-1.2); Total Protein 6.4 g/dL (6.6-8.7)
[2023-03-05 14:22] VITALS: BP 119/74; PULSE 62; RESP 18; TEMP 36.6; O2SAT 94
[2023-03-05] MEDS: lidocaine 1% INJ 20 mL MDV (mL) SUBCUT (14:24)
[2023-03-05] MEDS: denosumab 120 mg SDV SUBCUT (14:25)
[2023-03-05] MEDS: goserelin acetate 10.8 mg Implant SUBCUT (14:28)
== END 2023-03-26 23:59 | disposition home or self-care (01) ==
PROVIDERS: Nurse Practitioner Family; PCP Nurse Practitioner Family; Visit Provider Radiology Radiation Oncology
DX: C79.51 Secondary malignant neoplasm of bone (principal); C61 Malignant neoplasm of prostate; Z79.899 Other long term (current) drug therapy; R97.20 Elevated prostate specific antigen [PSA]
CPT/HCPCS: 36415; 80053; 84153; 85025; 99214; J0897; J9202

== ENCOUNTER → 2023-03-27 11:03 | Outpatient (BNVA) | payer MEDICARE, BC, SELFPAY | PROVIDERS: PCP Nurse Practitioner Family; Visit Provider Nurse Practitioner Family | DX: E03.9 Hypothyroidism, unspecified (principal); E07.9 Disorder of thyroid, unspecified | CPT/HCPCS: 84443 ==

== ENCOUNTER 2023-05-28 10:28 | Oncology outpatient (recurring) (ONCR) | payer MEDICARE, BC, SELFPAY ==
[2023-05-28 11:54] LABS: Basophils % 0.3 %; Eosinophils % 0.6 %; Hematocrit 40.2 % (37-53); Lymphocytes % 15.4 %; Mean Corpuscular HGB Conc 32.8 g/dL (30-55); Mean Corpuscular Hemoglobin 31.7 pg (27-33); Mean Corpuscular Volume 96.4 fl (82-101); Mean Platelet Volume 8.6 fL (7.4-10.4); Monocytes # 0.5 10^3/uL (0.2-0.9); Monocytes % 8.1 %; Neutrophils # 4.92 10^3/uL (1.8-7.7); Neutrophils % 75.1 %; Nucleated Red Blood Cells % 0 %; Platelet Count 226 10^3/cmm (157-399); Red Blood Count 4.17 10^6/uL (3.85-5.65); Red Cell Distribution Width 12.8 % (12.1-15.1); Testosterone Total 2.5 ng/dL (193-740); White Blood Count 6.55 10^3/uL (3.29-11.43)
[2023-05-28 12:11] LABS: Alanine Aminotransferase 15 U/L (0-41); Albumin Level 4.1 g/dL (3.5-5.2); Alkaline Phosphatase 37 U/L (40-130); Anion Gap 14.4 (5-19); Aspartate Amino Transferase 20 U/L (0-40); Blood Urea Nitrogen 21 mg/dL (8-23); Calcium 9.5 mg/dL (8.5-10.5); Carbon Dioxide 30 mmol/L (22-29); Chloride 97 mmol/L (98-107); Globulin 2.3 g/dL (1.3-4.6); Glucose 113 mg/dL (65-115); Osmolality Calculated 288 mOsm/kg (285-295); Potassium 4.4 mmol/L (3.5-5.1); Prostate Specific Antigen 0.023 ng/mL (0-4); Sodium 137 mmol/L (136-145); Total Bilirubin 0.5 mg/dL (0.15-1.2); Total Protein 6.4 g/dL (6.6-8.7)
[2023-05-28] MEDS: lidocaine 1% INJ 20 mL MDV (mL) SUBCUT (13:40)
[2023-05-28] MEDS: denosumab 120 mg SDV SUBCUT (13:42)
[2023-05-28] MEDS: goserelin acetate 10.8 mg Implant 10.8000000000000007 MG SUBCUT (14:27)
[2023-05-28 14:30] VITALS: BP 145/78; PULSE 78; RESP 17; TEMP 36.4; O2SAT 98
== END 2023-06-25 23:59 | disposition home or self-care (01) ==
PROVIDERS: Internal Medicine; Internal Medicine Medical Oncology; PCP Nurse Practitioner Family; Visit Provider Radiology Radiation Oncology
DX: C79.51 Secondary malignant neoplasm of bone (principal); C61 Malignant neoplasm of prostate; Z79.899 Other long term (current) drug therapy; Z79.52 Long term (current) use of systemic steroids; Z79.818 Long term (current) use of other agents affecting estrogen receptors and estrogen levels; Z79.891 Long term (current) use of opiate analgesic
CPT/HCPCS: 36415; 80053; 84153; 84403; 85025; 96372; 96402; 99214; J0897; J9202

== ENCOUNTER 2023-07-28 07:51 | Outpatient (CLI) | payer MEDICARE, BC, SELFPAY ==
--- NOTE | 2023-07-28 07:59 | XR_ITS ---
WS: [id number] Examination: XR pelvis 1-2V* [id number] Reason for Exam: hip pain Date: July 28, 2023 Comparison: None. Findings: Again sclerotic lesions are identified within the pelvis bilaterally. These are noted dominantly just above the right acetabulum and along the lateral margin of the left ilium as well as the left symphy sis pubis. Focus of sclerosis is also noted involving the right hip. There is no fracture. Lower lumbar degenerative changes are noted. Vascular calcification is present. Impression: Findings again suggest blastic metastatic disease to the pelvis. These appear similar to the previous study
--- NOTE | 2023-07-28 08:00 | NM_ITS ---
WS: [id number] NUCLEAR MEDICINE BONE SCAN Radiopharmaceutical: 24.6 Tc-99m MDP mCi IV Injection site: Antecubital Postinjection imaging delay: 1 hr CLINICAL INFORMATION: hip pain COMPARISON: 03/17/2023 FINDINGS: Bone lesions: No evidence of new or progressed metastatic disease. Small amount of residual uptake in a RIGHT lower posterior rib. This is improved over the last several studies Soft tissue contours: Normal. Kidneys: Normal. Other findings: None. IMPRESSION: 1. No evidence of new or progressed osseous metastatic disease. 2. Small amount of residual uptake in a RIGHT lower posterior rib improved compared to previous. This has improved over the last several studies.
[2023-07-28 13:19] LABS: 25 Hydroxy Vitamin D 38 ng/mL (30-100); Vitamin B12 627 pg/mL (232-1245)
[2023-07-28 13:25] LABS: Folate Level > 20.0 ng/mL (4.5-32.2)
[2023-07-29 14:55] LABS: RPR w(Moniotor) w/REFL Titer NON-REACTIVE (NON-REACTIVE)
[2023-07-31 15:25] LABS: Methylmalonic Acid 137 nmol/L (87-318)
[2023-08-02 11:40] LABS: Apolipoprotein E (ApoE) Isofor E3/E3
== END 2023-07-28 07:52 | disposition home or self-care (01) ==
PROVIDERS: Psychiatry & Neurology Neurology; PCP Nurse Practitioner Family; Visit Provider Internal Medicine Medical Oncology
DX: R41.3 Other amnesia (principal); C61 Malignant neoplasm of prostate; C79.51 Secondary malignant neoplasm of bone; M25.559 Pain in unspecified hip; Z95.0 Presence of cardiac pacemaker; R00.1 Bradycardia, unspecified; E55.9 Vitamin D deficiency, unspecified; Z87.891 Personal history of nicotine dependence; R26.89 Other abnormalities of gait and mobility
CPT/HCPCS: 36415; 72170; 78306; 82306; 82542; 82607; 82746; 83921; 86592; 99203; A9561

== ENCOUNTER 2023-08-13 10:16 | Outpatient (CLI) | payer MEDICARE, BC, SELFPAY ==
--- NOTE | 2023-08-13 10:30 | CT_ITS ---
WS: [id number] CT HEAD TECHNIQUE: Noncontrast and contrast-enhanced CT of the head. CLINICAL INFORMATION: C61 - Malignant neoplasm of prostate COMPARISON: None. DLP: 2047.[address] scans at [facility] use at least one of these dose optimization techniques: automated e xposure control; mA and/or kV adjustment per patient size (includes targeted exams where dose is matc hed to clinical indication); or iterative reconstruction. FINDINGS: No evidence intracranial hemorrhage or mass effect. Ventricular system basilar cisterns are patent. M ild small vessel changes. Moderate parenchymal volume loss. Cavernous carotid calcifications. Mild to moderate atrophy LEFT greater than RIGHT temporal lobes and hippocampal formations. No abnormal intr acranial enhancement. Paranasal sinuses and mastoid air cells are well aerated. IMPRESSION: 1. No evidence of intracranial hemorrhage or mass effect. 2. Mild small vessel changes. Moderate parenchymal volume loss 3. Mild to moderate atrophy LEFT greater than RIGHT temporal lobes and hippocampal formations. 4. No abnormal intracranial enhancement.
[2023-08-13 10:50] LABS: Blood Urea Nitrogen 18 mg/dL (8-23)
[2023-08-13] MEDS: iohexol 350 mg/mL 500 mL Btl (per mL) IV (10:54)
== END 2023-08-13 10:17 | disposition home or self-care (01) ==
LOC: RAD 10:16
PROVIDERS: PCP Nurse Practitioner Family; Visit Provider Psychiatry & Neurology Neurology
DX: C61 Malignant neoplasm of prostate (principal); C79.51 Secondary malignant neoplasm of bone; G31.89 Other specified degenerative diseases of nervous system
CPT/HCPCS: 70470; 82565; 84520; Q9967

== ENCOUNTER 2023-08-20 12:30 | Oncology outpatient (recurring) (ONCR) | payer MEDICARE, BC, SELFPAY ==
--- NOTE | 2023-08-11 09:00 | USCV_ITS ---
Bhavin Godfrey Age: 87 Gender: M : 1935 Exam Date: 08/11/2023 08:28 Ordering Phys: John Mora MD Technologist: Exam [place] [facility] [place]: cca stenosis Risk Factors: Previous Vascular Surgery: Right Brachial BP: / Left Brachial BP: / Right Left Velocity (cm/s) Spectral Plaque Velocity (cm/s) Spectral Plaque Syst/Diast Broadening Syst/Diast Broadening 68.50/ 19.30 Prox CCA 62.60 / 20.90 37.40/ 8.90 Mid CCA 78.40 / 22.50 63.40/ 15.40 Hetro Distal CCA 76.10 / 20.20 Hetro 44.80/ 14.00 Hetro Prox ICA 40.30 / 15.20 Hetro 41.00/ 16.60 Mid ICA 50.10 / 18.40 54.80/ 20.30 Distal ICA 52.10 / 22.80 59.00 ECA 48.90 0.90 ICA/CCA 0.70 Antegrade Vertebral Antegrade 39.50/ 11.40 cm/s 47.50/ 15.10 cm/s Bi Subclavian Bi 123.0 78.00 0 CONCLUSIONS Right ICA stenosis <50%. Moderate atheromatous plaque right carotid bulb/ICA. Left ICA stenosis <50%. Moderate atheromatous plaque left carotid bulb/ICA. Intimal thickening in the common carotid arteries and internal carotid arteries bilaterally. Normal antegrade Doppler flow noted in the right vertebral artery. Normal antegrade Doppler flow noted in the left vertebral artery. Vijay Haley MD (Electronically Signed) Final Date: 11 August 2023 09:21 S
[2023-08-20 12:38] LABS: Basophils % 0.2 %; Eosinophils % 0.2 %; Hematocrit 40.7 % (37-53); Lymphocytes # 0.8 10^3/uL (0.8-4.8); Lymphocytes % 13.4 %; Mean Corpuscular HGB Conc 32.2 g/dL (30-55); Mean Corpuscular Hemoglobin 30.8 pg (27-33); Mean Corpuscular Volume 95.8 fl (82-101); Mean Platelet Volume 8.2 fL (7.4-10.4); Monocytes # 0.4 10^3/uL (0.2-0.9); Monocytes % 6.2 %; Neutrophils # 4.54 10^3/uL (1.8-7.7); Neutrophils % 79.8 %; Nucleated Red Blood Cells % 0 %; Platelet Count 204 10^3/cmm (157-399); Red Blood Count 4.25 10^6/uL (3.85-5.65); Red Cell Distribution Width 12.9 % (12.1-15.1); White Blood Count 5.68 10^3/uL (3.29-11.43)
[2023-08-20 13:21] LABS: Alanine Aminotransferase 21 U/L (0-41); Alkaline Phosphatase 48 U/L (40-130); Anion Gap 12.9 (5-19); Aspartate Amino Transferase 20 U/L (0-40); Blood Urea Nitrogen 22 mg/dL (8-23); Calcium 8.9 mg/dL (8.5-10.5); Carbon Dioxide 32 mmol/L (22-29); Chloride 98 mmol/L (98-107); Globulin 2.4 g/dL (1.3-4.6); Glucose 244 mg/dL (65-115); Osmolality Calculated 299 mOsm/kg (285-295); Potassium 3.9 mmol/L (3.5-5.1); Prostate Specific Antigen 0.025 ng/mL (0-4); Sodium 139 mmol/L (136-145); Total Bilirubin 0.9 mg/dL (0.15-1.2); Total Protein 6.4 g/dL (6.6-8.7)
[2023-08-20] MEDS: lidocaine 1% INJ 20 mL MDV (mL) SUBCUT (15:14)
[2023-08-20] MEDS: denosumab 120 mg SDV SUBCUT (15:16)
[2023-08-20] MEDS: goserelin acetate 10.8 mg Implant 10.8000000000000007 MG SUBCUT (15:20)
[2023-08-20 15:22] VITALS: BP 143/85; PULSE 60; RESP 16; O2SAT 92
== END 2023-08-25 23:59 | disposition home or self-care (01) ==
PROVIDERS: Internal Medicine; PCP Nurse Practitioner Family; Visit Provider Radiology Radiation Oncology
DX: C79.51 Secondary malignant neoplasm of bone; C61 Malignant neoplasm of prostate; R26.89 Other abnormalities of gait and mobility; R29.818 Other symptoms and signs involving the nervous system; Z53.9 Procedure and treatment not carried out, unspecified reason; Z79.818 Long term (current) use of other agents affecting estrogen receptors and estrogen levels
CPT/HCPCS: 36415; 80053; 84153; 85025; 93880; 96372; 96402; 99214; J0897; J9202

== ENCOUNTER → 2023-09-03 10:55 | Outpatient (BNVA) | payer MEDICARE, BC, SELFPAY | PROVIDERS: PCP Nurse Practitioner Family; Visit Provider Internal Medicine Cardiovascular Disease | DX: R06.02 Shortness of breath (principal) | CPT/HCPCS: 36415; 80048; 83880 ==

== ENCOUNTER 2023-09-18 08:16 | Oncology outpatient (recurring) (ONCR) | payer BC, SELFPAY | END 2023-09-25 23:59 | disposition home or self-care (01) | LOC: ONCMED 08:17 | PROVIDERS: PCP Nurse Practitioner Family; Visit Provider Radiology Radiation Oncology | DX: C79.51 Secondary malignant neoplasm of bone (principal); C61 Malignant neoplasm of prostate; Z79.899 Other long term (current) drug therapy; Z79.52 Long term (current) use of systemic steroids; Z79.818 Long term (current) use of other agents affecting estrogen receptors and estrogen levels; Z79.891 Long term (current) use of opiate analgesic; R26.89 Other abnormalities of gait and mobility; R29.818 Other symptoms and signs involving the nervous system ==

== ENCOUNTER → 2023-11-09 17:42 | Outpatient (BNVA) | payer MEDICARE, BC, SELFPAY | PROVIDERS: PCP Nurse Practitioner Family; Visit Provider Psychiatry & Neurology Neurology | DX: R41.3 Other amnesia (principal); F03.90 Unspecified dementia, unspecified severity, without behavioral disturbance, psychotic disturbance, mood disturbance, and anxiety; C61 Malignant neoplasm of prostate; Z79.899 Other long term (current) drug therapy | CPT/HCPCS: 36415; 80053; 83735; 84153; 85025; 86780 ==

== ENCOUNTER 2023-11-12 06:00 | Oncology outpatient (recurring) (ONCR) | payer MEDICARE, BC, SELFPAY ==
[2023-11-12] MEDS: denosumab 120 mg SDV SUBCUT (12:46)
[2023-11-12] MEDS: lidocaine 1% INJ 20 mL MDV (mL) SUBCUT (12:49)
[2023-11-12] MEDS: goserelin acetate 10.8 mg Implant SUBCUT (13:03)
== END 2023-11-25 23:59 | disposition home or self-care (01) ==
LOC: ONCMED 11-23 11:21
PROVIDERS: PCP Nurse Practitioner Family; Visit Provider Radiology Radiation Oncology
DX: C79.51 Secondary malignant neoplasm of bone (principal); C61 Malignant neoplasm of prostate; Z79.899 Other long term (current) drug therapy; Z51.11 Encounter for antineoplastic chemotherapy; Z79.818 Long term (current) use of other agents affecting estrogen receptors and estrogen levels; Z79.52 Long term (current) use of systemic steroids; Z92.3 Personal history of irradiation; Z87.891 Personal history of nicotine dependence; Z95.828 Presence of other vascular implants and grafts
CPT/HCPCS: 72070; 96372; 96402; 99214; J0897; J9202

== ENCOUNTER → 2024-01-11 09:53 | Outpatient (BNVA) | payer MEDICARE, BC, SELFPAY | PROVIDERS: PCP Nurse Practitioner Family; Visit Provider Nurse Practitioner Family | DX: L57.0 Actinic keratosis (principal); L82.0 Inflamed seborrheic keratosis; L72.0 Epidermal cyst; S90.111A Contusion of right great toe without damage to nail, initial encounter; X58.XXXA Exposure to other specified factors, initial encounter | CPT/HCPCS: 17000; 17110; 99213 ==

== ENCOUNTER 2024-02-04 08:53 | Oncology outpatient (recurring) (ONCR) | payer MEDICARE, BC, SELFPAY ==
[2024-02-04 09:36] LABS: Basophils % 0.3 %; Eosinophils # 0.1 10^3/uL (0.0-0.8); Hematocrit 40.1 % (37-53); Lymphocytes # 0.8 10^3/uL (0.8-4.8); Lymphocytes % 14.2 %; Mean Corpuscular HGB Conc 32.2 g/dL (30-55); Mean Corpuscular Hemoglobin 31.4 pg (27-33); Mean Corpuscular Volume 97.6 fl (82-101); Mean Platelet Volume 8.2 fL (7.4-10.4); Monocytes # 0.6 10^3/uL (0.2-0.9); Monocytes % 10.6 %; Neutrophils # 4.34 10^3/uL (1.8-7.7); Neutrophils % 73.2 %; Nucleated Red Blood Cells % 0 %; Platelet Count 192 10^3/cmm (157-399); Red Blood Count 4.11 10^6/uL (3.85-5.65); Red Cell Distribution Width 12.6 % (12.1-15.1); White Blood Count 5.93 10^3/uL (3.29-11.43)
[2024-02-04 09:59] LABS: Alanine Aminotransferase 16 U/L (0-41); Alkaline Phosphatase 49 U/L (40-130); Anion Gap 13.3 (5-19); Aspartate Amino Transferase 23 U/L (0-40); Blood Urea Nitrogen 20 mg/dL (8-23); Calcium 8.7 mg/dL (8.5-10.5); Carbon Dioxide 31 mmol/L (22-29); Chloride 100 mmol/L (98-107); Creatinine Clr Calc Pharmacy 44.7796; Globulin 2.1 g/dL (1.3-4.6); Glucose 123 mg/dL (65-115); Osmolality Calculated 296 mOsm/kg (285-295); Potassium 3.3 mmol/L (3.5-5.1); Sodium 141 mmol/L (136-145); Testosterone Total 2.5 ng/dL (193-740); Total Bilirubin 0.7 mg/dL (0.15-1.2); Total Protein 6.1 g/dL (6.6-8.7)
[2024-02-04] MEDS: lidocaine 1% INJ 20 mL SUBCUT (11:39)
[2024-02-04] MEDS: goserelin acetate 10.8 mg Implant SUBCUT (11:48)
[2024-02-04] MEDS: denosumab 120 mg SDV SUBCUT (11:52)
== END 2024-02-25 23:59 | disposition home or self-care (01) ==
PROVIDERS: Nurse Practitioner Family; PCP Nurse Practitioner Family; Visit Provider Radiology Radiation Oncology
DX: Z51.11 Encounter for antineoplastic chemotherapy (principal); C61 Malignant neoplasm of prostate; C79.51 Secondary malignant neoplasm of bone; Z79.899 Other long term (current) drug therapy; Z79.818 Long term (current) use of other agents affecting estrogen receptors and estrogen levels; Z79.52 Long term (current) use of systemic steroids; Z92.3 Personal history of irradiation; Z87.891 Personal history of nicotine dependence; Z95.828 Presence of other vascular implants and grafts
CPT/HCPCS: 36415; 80053; 84153; 84403; 85025; 96372; 96402; 99214; J0897; J9202

== ENCOUNTER → 2024-03-10 09:46 | Outpatient (BNVA) | payer MEDICARE, BC, SELFPAY | PROVIDERS: PCP Nurse Practitioner Family; Visit Provider Internal Medicine Cardiovascular Disease | DX: R06.02 Shortness of breath (principal); R06.09 Other forms of dyspnea; Z95.0 Presence of cardiac pacemaker; R53.83 Other fatigue; C79.82 Secondary malignant neoplasm of genital organs; I50.9 Heart failure, unspecified; Z87.891 Personal history of nicotine dependence | CPT/HCPCS: 36415; 80048; 83880; 99214 ==

== ENCOUNTER → 2024-03-15 08:20 | Outpatient (BNVA) | payer MEDICARE, BC, SELFPAY | PROVIDERS: PCP Nurse Practitioner Family; Visit Provider Nurse Practitioner Family | DX: S90.129A Contusion of unspecified lesser toe(s) without damage to nail, initial encounter (principal); X58.XXXA Exposure to other specified factors, initial encounter; L82.1 Other seborrheic keratosis; L81.4 Other melanin hyperpigmentation; D48.5 Neoplasm of uncertain behavior of skin | CPT/HCPCS: 11104; 99213 ==

== ENCOUNTER → 2024-03-29 14:57 | Outpatient (BNVA) | payer MEDICARE, BC, SELFPAY | PROVIDERS: PCP Nurse Practitioner Family; Visit Provider Nurse Practitioner Family | DX: L72.0 Epidermal cyst (principal) | CPT/HCPCS: 99213 ==

== ENCOUNTER 2024-04-01 07:54 | Outpatient (CLI) | payer MEDICARE, BC, SELFPAY ==
[2024-04-01 08:19] VITALS: BMI 24.3
--- NOTE | 2024-04-01 08:24 | ECG_ITS ---
[employer] Test Date: 2024-04-01 Pat Name: Bhavin Godfrey Department: Room: Gender: Male Value Advisor: : 1935 Requested By: Nae Childress Order Number: [id number] Mary MD: Nae Childress M.D. Interpretive Statements Lung unchanged pre/post procedure; Intraprocedure shortess of breath; Symptoms resoled by discharge PROCEDURE: At the baseline, the EKG revealed normal sinus rhythm with a poor R wave progression.. The baseline heart was 71 bpm with a blood pressue of 103/70 mm of Hg Lexiscan was infused over a period of 20 seconds. A total of 0.4 milligrams of Lexiscan was infused. The stress phase was continued for a total of 5 minutes. Heart rate at the end of the stress phase was 89 bpm with a blood pressure 101/66 mm of Hg. The EKG at the peak infusion revealed no significant changes. Sestamibi was injected 20 seconds after the Lexiscan infusion. Heart rate at the end of the recovery phase was 86 bpm with a blood pressure of 104/64 mm of Hg. CONCLUSION: 1. No significant EKG changes with the LexiScan infusion 2. No LexiScan induced chest pain or cardiac arrhythmia 3. Normal blood pressure and heart rate response 4. Sestamibi/sestamibi perfusion scan pending; see separate report. Electronically Signed On 04-02-2024 14:54:16 ADMINISTRATIVE PROGRAM SPECIALIST by Nae Childress M.D. [id number]
--- NOTE | 2024-04-01 08:24 | NMCV_ITS ---
NM tyson perf SPECT r/s* [id number] Bhavin Godfrey Age: 88 Gender: M : 1935 Exam Date: 04/01/2024 09:09 Ordering Phys: Nae Childress MD ([email or web address]) Technologist: DORYS Cosby Exam Location: [facility] Indications: cp STRESS TEST [facility] IMAGE PROTOCOL Rest/Stress 1 Lexiscan Day Radiopharmaceutical Dose (mCi) Administration Site Administered by Rest: Tc-99m 10.6 IV DORYS Lawton Sestamibi Stress:Tc-99m 32.4 IV DORYS [place] Sestamibi Rest: 01-Apr-2024 60 Discovery 630 Stress: 01-Apr-2024 30 Discovery 630 0.4mg Lexiscan. Images obtained in supine and prone position. SPECT RESULTS Technical Quality: Good Raw Data Analysis: Normal Image Corrections: No attenuation or motion correction applied Summed Stress Score: 11 Summed Rest Score: 7 Summed Difference Score: 4 PERFUSION FINDINGS Moderate to large area of moderate to severely decreased tracer uptake involving the basal and mid mid and apical inferior, mid inferolateral, mid anterolateral, mid inferoseptal and apical lateral segments. Significant reversibility was noted in the inferior and inferolateral regions FUNCTIONAL RESULTS (calculated via Gated SPECT) Stress Image LV EF (%): 62 Stress EDV (mL):89 TID: 1.53 Stress ESV (mL):34 FUNCTIONAL FINDINGS: Segmental wall motion analysis revealed no significant wall motion normalities IMPRESSIONS 1. Myocardial perfusion imaging revealing moderate to large area of moderate to severely decreased tracer uptake involving the inferior, inferolateral, anterolateral, apical lateral and inferoseptal regions with a significant reversibility suggesting myocardial scarring in the distribution of the right coronary artery and left circumflex artery with significant areas of ischemia. 2. Normal LV ejection fraction of 62%. 3. LV wall motion analysis revealing no gross wall motion abnormalities. 4. Normal LV volume 5. Elevated transient ischemic dilatation ratio 1.53 is also suggestive of significant endocardial ischemia. No similar previous studies are available for comparison Dr Nae Childress MD FAC (Electronically Signed) Final Date: 01 April 2024 15:14 S
[2024-04-01] MEDS: regadenoson 0.4 Mg/5 ml Syringe IVP (09:35)
[2024-04-01 10:06] VITALS: BP 133/81; PULSE 99
== END 2024-04-01 07:55 | disposition home or self-care (01) ==
LOC: CDL 07:55
PROVIDERS: PCP Nurse Practitioner Family; Visit Provider Internal Medicine Cardiovascular Disease
DX: I50.9 Heart failure, unspecified (principal); R06.02 Shortness of breath; R94.39 Abnormal result of other cardiovascular function study
CPT/HCPCS: 36415; 78452; 93017; 96374; A9500; J2785

== ENCOUNTER 2024-04-06 06:37 | Inpatient (IN) | payer MEDICARE, BC, SELFPAY ==
[2024-04-06] VITALS (9 sets, daily range): BP systolic 104–144; BP diastolic 65–98; PULSE 62–96; RESP 14–24; TEMP 36.4–36.8; O2SAT 91–97; BMI 24.3; BMI 24.4
--- NOTE | 2024-04-06 06:42 | ECG_ITS ---
[facility] Pat Name: Bhavin Godfrey Department: Room: Gender: Male Engagement Mgr: : 1935 Requested By: Lan Watson Order Number: [id number] Mary MD: Garo Epps M.D. Measurements Intervals [place] Rate: 71 P: 43 OK: 179 QRS: -63 QRSD: 162 T: 102 QT: 439 QTc: 479 Interpretive Statements ELECTRONIC ATRIAL PACEMAKER ELECTRONIC VENTRICULAR PACEMAKER Compared to ECG 01/29/2022 05:31:45 No significant changes Electronically Signed On 04-08-2024 22:04:38 SUGAR CANE PLANTER MACHINE OPERATOR by Garo Epps M.D. [email or web address]
--- NOTE | 2024-04-06 06:42 | XR_ITS ---
WS: [id number] Exam: XR chest 1V portable [id number] Date/Time of Exam: 04/06/2024 6:45 AM Reason For Exam: dyspnea/cough Comparison 09/01/2022. Lungs are fully inflated and clear. Cardiomediastinal silhouette is unremarkable. Tortuosity of the t horacic aorta. Degenerative change and scoliosis of the thoracic spine. No pleural effusion. Permanen t cardiac pacer over the LEFT chest. XR/XR chest 1V portable [id number] IMPRESSION: 1. No acute process identified.
[2024-04-06] MEDS: aspirin 81 mg Chew Tablet 324 MG PO (06:49)
--- NOTE | 2024-04-06 06:49 | ED_ITS ---
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 Patient has had been having shortness of breath on exertion. He states he can walk a couple 100 feet and he gets very short of breath he did have some chest pain while at rest 2 days ago. He has no known history of coronary disease he does have a history of atrial fibrillation had a pacemaker placed. He is not on any anticoagulants. He had a stress test 5 days ago. It was a Lexiscan sestamibi stress test and was significantly positive. He had an echocardiogram this morning that has not currently been read. He does have a history of prostate cancer and some mild dementia. Associated symptoms: Deny chest pain, dyspnea or rash Related Data Home Medications Medication Instructions Recorded Confirmed calcium 600 mg (as 1 tab PO DAILY 10/15/21 04/06/24 carbonate)-vitamin D3 10 mcg (400 unit) tablet (Calcium 600 + D(3)) acetaminophen 500 mg capsule 1,000 mg PO BEDTIME PRN Pain 02/26/22 04/06/24 sennosides 8.6 mg-docusate sodium 1 tab PO DAILY 12/11/22 04/06/24 50 mg tablet abiraterone 250 mg tablet 1,000 mg PO DAILY 04/06/24 04/06/24 finasteride 5 mg tablet 5 mg PO DAILY 04/06/24 04/06/24 furosemide 20 mg tablet 20 mg PO QAM 04/06/24 04/06/24 levothyroxine 75 mcg tablet 75 mcg PO QAM 04/06/24 04/06/24 rxpuyjflxluj-xjcppfcu-ogjqsb 1 tab PO DAILY 04/06/24 04/06/24 tablet (Multivitamin 50 Plus tablet) tamsulosin 0.4 mg capsule 0.4 mg PO BID 04/06/24 04/06/24 Previous Rx's Medication Instructions Recorded memantine 10 mg tablet 10 mg PO BID #60 tabs 11/13/23 prednisone 5 mg tablet 5 mg PO BID #180 tabs 02/01/24 potassium chloride 10 mEq 10 meq PO DAILY #30 tabs 02/04/24 tablet,extended release hydrocodone 5 mg-acetaminophen 325 1 tab PO Q6H PRN pain 30 days #120 03/12/24 mg tablet tabs aspirin 81 mg tablet,delayed 81 mg PO DAILY #30 tabs 04/09/24 release atorvastatin 40 mg tablet 40 mg PO BEDTIME #30 tabs 04/09/24 clopidogrel 75 mg tablet 75 mg PO DAILY #30 tabs 04/09/24 metoprolol succinate 25 mg 12.5 mg (1/2 x 25 mg) PO DAILY #30 04/09/24 tablet,extended release 24 hr tabs (Toprol XL) trazodone 50 mg tablet See Rx Instructions .Route 04/12/24 .COMPLEX #180 tabs Allergies Allergy/AdvReac Type Severity Reaction Status Date / Time No Known Allergies Allergy Verified 04/06/24 06:47 Review of Systems 2 Const: Denies: fever(s) or chills Card: Denies: chest pain Resp: Denies: dyspnea GI: Denies: abdominal pain : Denies: dysuria, urinary frequency or urinary urgency Musc: Denies: neck pain or back pain Skin/Breast: Denies: rash PFSH ED 2 PFSH: Medical History Pacemaker Medtronic dual-chamber, implant 01/28/2022 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 Father , in his 80's No problems noted. Brother Stroke Other Cancer Dementia Suicide Social History Smoking and tobacco/nicotine status: never used tobacco/nicotine Quit status (tobacco/nicotine): has quit using Year quit tobacco: 1957 Former quit date comment: 65+ years Alcohol intake: never Lives independently: Yes Marital status: / Current occupational status: retired Physical Exam 2 Const: COMMON NORMALS: no acute distress GENERAL APPEARANCE: cooperative and comfortable ORIENTATION/CONSCIOUSNESS: Yes awake HENMT: COMMON NORMALS: normocephalic, atraumatic and hearing grossly normal bilaterally HEAD & SCALP: normocephalic and atraumatic Resp: COMMON NORMALS: normal respiratory effort, No retractions, No use of accessory muscles and clear to auscultation bilaterally AUSCULTATION: clear to auscultation bilaterally Cardio: COMMON NORMALS: regular rate, regular rhythm and No murmurs present (Cardio) RATE: regular rate RHYTHM: regular rhythm GI: COMMON NORMALS: Soft to palpation and No hepatosplenomegaly present A USCULTATION: Yes normoactive bowel sounds PALPATION: Yes Soft to palpation, No Tenderness to palpation present (GI), No Guarding due to palpation present (GI) and Yes No hepatosplenomegaly present Extremity: COMMON NORMALS: normal to inspection, capillary refill normal, no clubbing, cyanosis or edema, no calf tenderness and no pedal edema Skin: COMMON NORMALS: no rashes or lesions noted GENERAL SKIN EXAM: no rashes or lesions noted Course 2 Vital Signs: Vital signs: Vital Signs Temperature 98.3 F 04/09/24 13:13 Pulse Rate 62 04/09/24 13:13 Respiratory Rate 20 H 04/09/24 13:13 Blood Pressure 101/74 04/09/24 13:13 Pulse Oximetry 93 04/09/24 13:13 Oxygen Delivery Me thod Room Air 04/09/24 07:58 MDM - General Adult Medical Decision Making Exertional dyspnea. In April 01 patient had a positive stress test that showed some areas of ischemia and then elevated 3 times daily ratio. Enzymes trending negative no acute changes on the EKG discussed with cardiology Dr. Childress recommends admission. Discussed with hospitalist orders written Medical Records I reviewed the patient's medical records. Lab Data I reviewed the patient's lab results. 04/09/24 04:22 04/09/24 04:22 Radiology Impressions Chest X-Ray 04/06/24 06:42 IMPRESSION: 1. No acute process identified. Laboratory Results WBC 5.76 10^3/uL (3.29-11.43) 04/07/24 03:30 RBC 3.86 10^6/uL (3.85-5.65) 04/07/24 03:30 Hgb 11.90 g/dL (11.27-16.99) 04/07/24 03:30 Hct 37.2 % (37-53) 04/07/24 03:30 MCV 96.4 fl (82-101) 04/07/24 03:30 MCH 30.8 pg (27-33) 04/07/24 03:30 MCHC 32.0 g/dL (30-55) 04/07/24 03:30 RDW 13.0 % (12.1-15.1) 04/07/24 03:30 Plt Count 211 10^3/cmm (157-399) 04/07/24 03:30 MPV 8.4 fL (7.4-10.4) 04/07/24 03:30 Neut % (Auto) 72.2 % 04/07/24 03:30 Lymph % (Auto) 16.5 % 04/07/24 03:30 [place] % (Auto) 9.4 % 04/07/24 03:30 Eos % (Auto) 1.0 % 04/07/24 03:30 Baso % (Auto) 0.2 % 04/07/24 03:30 Neut # (Auto) 4.16 10^3/uL (1.8-7.7) 04/07/24 03:30 Lymph # (Auto) 1.0 10^3/uL (0.8-4.8) 04/07/24 03:30 [place] # (Auto) 0.5 10^3/uL (0.2-0.9) 04/07/24 03:30 Eos # (Auto) 0.1 10^3/uL (0.0-0.8) 04/07/24 03:30 Baso # (Auto) 0.0 10^3/uL (0.0-0.1) 04/07/24 03:30 Nucleated RBC % (auto) 0 % 04/07/24 03:30 Nucleated RBCs # 0.0 /100WBC 04/07/24 03:30 PT 12.90 SECONDS (12.1-14.9) 04/07/24 03:30 INR 0.94 (0.8-1.2) 04/07/24 03:30 Sodium 139 mmol/L (136-145) 04/07/24 03:30 Sodium Cancelled 04/07/24 03:30 Potassium 4.1 mmol/L (3.5-5.1) 04/07/24 03:30 Potassium Cancelled 04/07/24 03:30 Chloride 100 mmol/L (98-107) 04/07/24 03:30 Chloride Cancelled 04/07/24 03:30 Carbon Dioxide 29 mmol/L (22-29) 04/07/24 03:30 Carbon Dioxide Cancelled 04/07/24 03:30 Anion Gap 14.1 (5-19) 04/07/24 03:30 Anion Gap Cancelled 04/07/24 03:30 BUN 19 mg/dL (8-23) 04/07/24 03:30 BUN Cancelled 04/07/24 03:30 Creatinine 0.9 mg/dL (0.7-1.2) 04/07/24 03:30 Creatinine Cancelled 04/07/24 03:30 GFR Calculation Cancelled 04/07/24 03:30 GFR Calculation Not Reportable 04/07/24 03:30 Glucose 136 mg/dL (65-115) H 04/07/24 03:30 Glucose Cancelled 04/07/24 03:30 Calculated Osmolality 292 mOsm/kg (285-295) 04/07/24 03:30 Calculated Osmolality Cancelled 04/07/24 03:30 Calcium 8.6 mg/dL (8.5-10.5) 04/07/24 03:30 Calcium Cancelled 04/07/24 03:30 Magnesium 2.3 mg/dL (1.7-2.3) 04/07/24 03:30 Total Bilirubin 0.4 mg/dL (0.15-1.2) 04/07/24 03:30 AST 14 U/L (0-40) 04/07/24 03:30 ALT 12 U/L (0-41) 04/07/24 03:30 Alkaline Phosphatase 40 U/L (40-130) 04/07/24 03:30 Troponin T Baseline 27 ng/L (0-15) H 04/06/24 06:53 Troponin T 120 Minute 23.10 ng/L (0-15) H 04/06/24 08:53 Delta Troponin T -3.90 ABS# (0-10) L 04/06/24 08:53 Troponin T Hi Sens 6Hr 20.90 ng/L (0-15) H 04/06/24 12:57 Troponin T Hi Sens 6Hr Delta -6.10 ng/L (0-12) L 04/06/24 12:57 NT-Pro-B Natriuret Pep 546 pg/mL (0-450) H 04/06/24 06:53 Total Protein 5.2 g/dL (6.6-8.7) L 04/07/24 03:30 Albumin 3.4 g/dL (3.5-5.2) L 04/07/24 03:30 Globulin 1.8 g/dL (1.3-4.6) 04/07/24 03:30 Triglycerides 114 mg/dL (0-150) 04/07/24 03:30 Cholesterol 221 mg/dL (0-200) H 04/07/24 03:30 LDL Cholesterol, Calc 152 mg/dL (50-129) H 04/07/24 03:30 HDL Cholesterol 46 mg/dL (60-100) L 04/07/24 03:30 LDL/HDL Ratio 3.30 RATIO (0.00-3.22) H 04/07/24 03:30 Cholesterol/HDL Ratio 4.80 mg/dL (1.0-5.00) 04/07/24 03:30 Vitamin B12 477 pg/mL (232-1245) 04/06/24 06:53 TSH 4.19 uIU/mL (0.27-4.20) 04/06/24 06:53 All radiology interpretation(s) finalized by discharge Discharge Plan Discharge Patient Disposition: Admitted As Inpatient Admit Provider: Hal Poole Clinical Impression: Atherosclerotic heart disease of [place] coronary artery with other forms of angina pectoris, Malignant neoplasm of prostate, Secondary malignant neoplasm of bone, Abnormal nuclear cardiac imaging test Condition: Stable Discharge Diet: Cardiac Discharge Activity: Limit activity as instructed Coding Level of Care Code ED Beveling Machine Operator for Laurel Gibbs
[2024-04-06 07:00] LABS: Basophils % 0.3 %; Eosinophils % 0.7 %; Hematocrit 43.1 % (37-53); Lymphocytes # 1.1 10^3/uL (0.8-4.8); Lymphocytes % 19.5 %; Mean Corpuscular HGB Conc 31.8 g/dL (30-55); Mean Corpuscular Hemoglobin 31.2 pg (27-33); Mean Corpuscular Volume 98.2 fl (82-101); Mean Platelet Volume 8.2 fL (7.4-10.4); Monocytes # 0.5 10^3/uL (0.2-0.9); Monocytes % 8.9 %; Neutrophils # 4.08 10^3/uL (1.8-7.7); Neutrophils % 69.9 %; Nucleated Red Blood Cells % 0 %; Platelet Count 217 10^3/cmm (157-399); Red Blood Count 4.39 10^6/uL (3.85-5.65); Red Cell Distribution Width 12.8 % (12.1-15.1); White Blood Count 5.84 10^3/uL (3.29-11.43)
[2024-04-06 07:18] LABS: Alanine Aminotransferase 16 U/L (0-41); Albumin Level 4.3 g/dL (3.5-5.2); Alkaline Phosphatase 48 U/L (40-130); Anion Gap 14.9 (5-19); Aspartate Amino Transferase 19 U/L (0-40); Blood Urea Nitrogen 18 mg/dL (8-23); Calcium 9.4 mg/dL (8.5-10.5); Carbon Dioxide 29 mmol/L (22-29); Chloride 99 mmol/L (98-107); Creatinine Clr Calc Pharmacy 49.2576; Globulin 1.9 g/dL (1.3-4.6); Glucose 117 mg/dL (65-115); Osmolality Calculated 291 mOsm/kg (285-295); Potassium 3.9 mmol/L (3.5-5.1); Sodium 139 mmol/L (136-145); Total Bilirubin 0.8 mg/dL (0.15-1.2); Total Protein 6.2 g/dL (6.6-8.7)
[2024-04-06 07:19] LABS: Troponin(5th) Baseline 27 ng/L (0-15)
[2024-04-06 08:30] LABS: NT Pro B Type Natriuretic Pept 546 pg/mL (0-450)
--- NOTE | 2024-04-06 08:38 | ECG_ITS ---
[facility] Date: 2024-04-06 Pat Name: Bhavin Godfrey Department: Room: Gender: Male First Helper: : 1935 Requested By: Lan Watson Order Number: [id number] Mary MD: Garo Epps M.D. Measurements Intervals [place] Rate: 61 P: 41 CT: 175 QRS: -64 QRSD: 157 T: 118 QT: 452 QTc: 456 Interpretive Statements ELECTRONIC ATRIAL PACEMAKER ELECTRONIC VENTRICULAR PACEMAKER ABNORMAL RHYTHM ECG Compared to ECG 04/06/2024 06:48:45 No significant changes Electronically Signed On 04-08-2024 22:20:15 SERVICE COUNTER CASHIER by Garo Epps M.D. [email or web address]
--- NOTE | 2024-04-06 09:10 | P.HP_ITS ---
Providers/Chief Complaint 2 Admitting Physician: Hal Poole MD, hospitalist Primary Care Provider: KERWIN Irwin Chief Complaint: SOB History of Present Illness Bhavin Godfrey is a 88 year old male presenting to the emergency department, at the direction of the lineworker. He has been having dyspnea, with exertion for quite a while. He had some chest discomfort 2 days ago. He recently had a nuclear stress test, and this has been read as concerning. He reports no nausea. He has some difficulty relating his symptoms secondary to memory difficulties. No vomiting, diarrhea, recent illness, cough, blood in stool or black or tarry stools. Daughter accompanies him, and helps him with his history. He has a prior history of pacemaker placement. I do not see any prior history of coronary disease. He has had an aspirin in the ER. Review of Systems 2 General: Reports: 10 or more systems reviewed and unremarkable except in HPI and below Card: Reports: chest pain Resp: Reports: dyspnea Medications/Allergies Home Medications Medication Instructions Recorded Confirmed Last Taken Type calcium 600 mg (as 1 tab PO DAILY 10/15/21 04/06/24 04/06/24 History carbonate)-vitamin D3 10 mcg (400 unit) tablet (Calcium 600 + D(3)) acetaminophen 500 mg capsule 1,000 mg PO BEDTIME PRN Pain 02/26/22 04/06/24 Unknown History sennosides 8.6 mg-docusate sodium 1 tab PO DAILY 12/11/22 04/06/24 04/06/24 History 50 mg tablet memantine 10 mg tablet 10 mg PO BID #60 tabs 11/13/23 04/06/24 04/06/24 Rx trazodone 50 mg tablet 50 mg PO BID #180 tabs 01/01/24 04/06/24 04/06/24 Rx prednisone 5 mg tablet 5 mg PO BID #180 tabs 02/01/24 04/06/24 04/06/24 Rx potassium chloride 10 mEq 10 meq PO DAILY #30 tabs 02/04/24 04/06/24 04/06/24 Rx tablet,extended release hydrocodone 5 mg-acetaminophen 325 1 tab PO Q6H PRN pain 30 days #120 03/12/24 04/06/24 Unknown Rx mg tablet tabs abiraterone 250 mg tablet 1,000 mg PO DAILY 12/03/2004/06/24 04/06/24 History finasteride 5 mg tablet 5 mg PO DAILY 04/06/24 04/06/24 04/06/24 History furosemide 20 mg tablet 20 mg PO QAM 04/06/24 04/06/24 04/06/24 History levothyroxine 75 mcg tablet 75 mcg PO QAM 04/06/24 04/06/24 04/06/24 History duwsjmqmboaf-jxkylzjl-zdrlyf 1 tab PO DAILY 04/06/24 04/06/24 04/06/24 History tablet (Multivitamin 50 Plus tablet) tamsulosin 0.4 mg capsule 0.4 mg PO BID 04/06/24 04/06/24 04/06/24 History Allergies Allergy/AdvReac Type Severity Reaction Status Date / Time No Known Allergies Allergy Verified 04/06/24 06:47 PFSH Acute 2 PFSH: Medical History Pacemaker Medtronic dual-chamber, implant 01/28/2022 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 Father , in his 80's No problems noted. Brother Stroke Other Cancer Dementia Suicide Social History Smoking and tobacco/nicotine status: never used tobacco/nicotine Quit status (tobacco/nicotine): has quit using Year quit tobacco: 1957 Former quit date comment: 65+ years Alcohol intake: never Lives independently: Yes Marital status: / Current occupational status: retired Vitals/I&O/Wt Last Vital Signs Temp 97.6 F 04/06/24 06:43 Pulse 62 04/06/24 08:46 Resp 18 04/06/24 06:43 BP 130/86 04/06/24 08:46 Pulse Ox 91 04/06/24 08:46 O2 Del Method Room Air 04/06/24 06:43 Weight last 48 hrs Weight 68.492 kg Physical Exam 2 Narrative: General Exam is a white male, no distress, conversant HEENT: Atraumatic normocephalic. Oropharynx clear Neck is supple no lymphadenopathy thyromegaly Cardiovascular regular rate and rhythm with 2/6 systolic murmur Lungs clear no wheezing or crackles Abdomen soft nontender positive bowel sounds. No obvious organomegaly exam is deferred Extremities no cyanosis clubbing edema, cap refill brisk Skin no rash Neuro no obvious focal deficits. Data 04/06/24 06:53 04/06/24 06:53 Other Labs: EKG which I reviewed demonstrates a paced rhythm, ventricular pacemaker. Chest x-ray I reviewed demonstrates pacemaker, no acute infiltrate Recent myocardial perfusion done on April 01 demonstratesNormal EF, moderate to large area of decreased tracer uptake inferior inferolateral anterolateral apical lateral and inferoseptal suggesting myocardial scarring with some significant areas of ischemia and an elevated TID ratio. BNP is 546 Albumin, calcium normal Troponin baseline 27 with repeat pending TSH I have ordered is pending A&P Assessment and plan (1) Chest pain: Patient had chest pain 2 days ago He has had significant exertional dyspnea which may be anginal equivalent Troponin is elevated, but no trend to suggest acute OK Aspirin 3 and 25 mg daily Lipid profile in the morning Check TSH, echocardiogram Cardiology consult Lovenox for DVT prophylaxis Will defer to cardiology potential initiation of beta-erlin Plan Memory difficulties with history of dementia. Check B12 along with TSH Prostate cancer. Continue his prednisone which he is on chronically. Multiple other medical problems as outlined in past medical history Full code currently Lovenox for DVT prophylaxis Attestations 2 Medical Necessity Statement*: Will need less than 2 midnight stay for evaluation and treatment of chest discomfort, positive stress test Diagnoses Chest pain R07.9 Time Spent (min) 45
[2024-04-06 09:19] LABS: Thyroid Stimulating Hormone 4.19 uIU/mL (0.27-4.20)
--- NOTE | 2024-04-06 09:23 | PC.NURSE ---
enoxaparin 40mg SUBCUT @0915 delayed d/t not being verified by pharmacy
[2024-04-06] MEDS: enoxaparin 40 mg/0.4 mL Syringe SUBCUT (09:35)
[2024-04-06 11:23] LABS: Vitamin B12 477 pg/mL (232-1245)
--- NOTE | 2024-04-06 11:44 | PC.NURSE ---
pt c/o feeling uncomfortable, offered pt x2 pillow, x2 blanket. pt denies any further needs/concerns at this time. updated pt on status of bed status/admit
--- NOTE | 2024-04-06 12:30 | PC.NURSE ---
report called to Radha in [facility], no further questions.
--- NOTE | 2024-04-06 12:50 | P.CONIM_ITS ---
Providers/Reason For Consult 2 Consulting Physician/Specialty*: HECTOR Childress MD/cardiology Reason for Consult*: Patient with increasing shortness of breath and abnormal Myocardial perfusion imaging Requesting Physician: Dr. Poole/Dr. Brady Attending Physician: Hal Poole MD Primary Care Provider: KERWIN Irwin History of Present Illness History of Present Illness Bhavin Godfrey is a 88 year old male presenting with progressive shortness of breath. He had a abnormal Myocardial perfusion imaging few days ago. He also is diagnosed with recent heart failure. He is admitted to hospital for further evaluation management. This patient has been having creasing shortness of breath over the last several months. Even with minimal activities, he gets very short of breath. Also was found to be fatigued easily. He had some episodes of tight feeling in the chest intermittently. He is somewhat vague about the symptoms. His daughter who is his main caregiver he is very concerned about his increasing shortness of breath and fatigue. He had a Myocardial perfusion imaging on the sixth of this month. He was found to have areas of significant reversible defects in the distribution of the right coronary artery/circumflex artery. LV ejection fraction was normal by the nuclear scan. His echocardiogram this morning revealed an ejection fraction of 45 to 50%. Diffuse hypokinesia of the left-ventricular was noted. He also is diagnosed with stage IVb adenocarcinoma of the prostate. He had a extensive bone mets for which he underwent focal radiation treatment. He had a ADT and chemotherapy, being followed up at our oncology clinic. He had improvement with implantation for symptomatic bradycardia. The pacemaker function was found to be appropriate based on the recent evaluation. He denies any fever or chills. No cough. Review of Systems 2 Narrative: CONSTITUTIONAL: No fever or chills. Generalized weakness/fatigue EYES: No blurring of vision or other visual disturbances lately. ENT: No hoarseness of voice, auditory disturbances or sore throat. CARDIOVASCULAR: As mentioned above. RESPIRATORY: No significant cough. GASTROINTESTINAL: No hematemesis or melena. GENITOURINARY: Metastatic adenocarcinoma of the prostate as mentioned above INTEGUMENTARY: No skin rashes or history of skin cancer. NEURO: No transient ischemic attacks or amaurosis. PSYCHIATRIC: No history of psychosis or major depression. HEMATOLOGIC: No bleeding disorders or significant anemia. ENDOCRINE: No history of polyuria or polydipsia. MUSCULOSKELETAL: No recent joint pain or swelling. ALLERGY/IMMUNOLOGY: As mentioned above. Medications/Allergies Home Medications Medication Instructions Recorded Confirmed Last Taken Type calcium 600 mg (as 1 tab PO DAILY 10/15/21 04/06/24 04/06/24 History carbonate)-vitamin D3 10 mcg (400 unit) tablet (Calcium 600 + D(3)) acetaminophen 500 mg capsule 1,000 mg PO BEDTIME PRN Pain 02/26/22 04/06/24 Unknown History sennosides 8.6 mg-docusate sodium 1 tab PO DAILY 12/11/22 04/06/24 04/06/24 History 50 mg tablet memantine 10 mg tablet 10 mg PO BID #60 tabs 11/13/23 04/06/24 04/06/24 Rx trazodone 50 mg tablet 50 mg PO BID #180 tabs 01/01/24 04/06/24 04/06/24 Rx prednisone 5 mg tablet 5 mg PO BID #180 tabs 02/01/24 04/06/24 04/06/24 Rx potassium chloride 10 mEq 10 meq PO DAILY #30 tabs 02/04/24 04/06/24 04/06/24 Rx tablet,extended release hydrocodone 5 mg-acetaminophen 325 1 tab PO Q6H PRN pain 30 days #120 03/12/24 04/06/24 Unknown Rx mg tablet tabs abiraterone 250 mg tablet 1,000 mg PO DAILY 04/06/24 04/06/24 04/06/24 History finasteride 5 mg tablet 5 mg PO DAILY 04/06/24 04/06/24 04/06/24 History furosemide 20 mg tablet 20 mg PO QAM 04/06/24 04/06/24 04/06/24 History levothyroxine 75 mcg tablet 75 mcg PO QAM 04/06/24 04/06/24 04/06/24 History biurvxgxernz-nxbkohzy-gbqfry 1 tab PO DAILY 04/06/24 04/06/24 04/06/24 History tablet (Multivitamin 50 Plus tablet) tamsulosin 0.4 mg capsule 0.4 mg PO BID 04/06/24 04/06/24 04/06/24 History Allergies Allergy/AdvReac Type Severity Reaction Status Date / Time No Known Allergies Allergy Verified 04/06/24 06:47 Current Medications Generic Name Dose Route Start Last Admin Trade Name Freq PRN Reason Stop Dose Admin Enoxaparin Sodium 40 mg 04/06/24 09:15 04/06/24 09:35 Enoxaparin 40 Mg/0.4 Ml Syringe SUBCUT 40 mg Q24H LINDA Administration PFSH Acute 2 PFSH: Medical History Pacemaker Medtronic dual-chamber, implant 01/28/2022 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 Father , in his 80's No problems noted. Brother Stroke Other Cancer Dementia Suicide Social History Smoking and tobacco/nicotine status: never used tobacco/nicotine Quit status (tobacco/nicotine): has quit using Year quit tobacco: 1957 Former quit date comment: 65+ years Alcohol intake: never Lives independently: Yes Marital status: / Current occupational status: retired Vitals/I&O/Wt Last Vital Signs Temp 97.6 F 04/06/24 06:43 Pulse 96 04/06/24 12:31 Resp 14 04/06/24 10:07 BP 125/81 04/06/24 12:31 Pulse Ox 94 04/06/24 12:31 O2 Del Method Room Air 04/06/24 06:43 04/05/24 04/06/24 04/06/24 22:59 06:59 14:59 Intake Total 800 / 800 Balance 800 / 800 Weight last 48 hrs Weight 151 lb Physical Exam 2 Narrative: GENERAL: The patient is alert and oriented times three. Not in any acute distress. Known to have mild dementia HEENT: Minimal pallor. No icterus or lymphadenopathy.Oral cavity: There are no mucous membrane lesions. NECK: Trachea appears to be central. No masses noted. No JVD or thyromegaly appreciated. RESPIRATORY: Chest is symmetrical. No intercostals muscle retraction or any accessory muscle activation. There is no chest wall tenderness. Breath sounds are heard bilaterally. No rales or rhonchi heard. No evidence of any consolidation. BREASTS: Deferred. HEART: The heart sounds are normal. No S3 or S4. No significant murmurs. No pericardial rub ABDOMEN: No vessel pulsations or distention. No tenderness. No organomegaly appreciated. Bowel sounds are normally heard. : Deferred. RECTAL: Deferred. LYMPHATIC: No lymphadenopathy noted in the neck. EXTREMITIES: Peripheral pulses are palpable but weak bilaterally. MUSCULOSKELETAL: No acute joint deformities or swelling SKIN: There are no significant rashes or ecchymosis NEUROPSYCHIATRIC: The patient is alert and oriented x3. Appears to be in a good mood. No tremors or rigidity noted. Data 04/06/24 06:53 04/06/24 06:53 Other Labs: Laboratory Last Values WBC 5.84 10^3/uL (3.29-11.43) 04/06/24 06:53 RBC 4.39 10^6/uL (3.85-5.65) 04/06/24 06:53 Hgb 13.70 g/dL (11.27-16.99) 04/06/24 06:53 Hct 43.1 % (37-53) 04/06/24 06:53 MCV 98.2 fl (82-101) 04/06/24 06:53 MCH 31.2 pg (27-33) 04/06/24 06:53 MCHC 31.8 g/dL (30-55) 04/06/24 06:53 RDW 12.8 % (12.1-15.1) 04/06/24 06:53 Plt Count 217 10^3/cmm (157-399) 04/06/24 06:53 MPV 8.2 fL (7.4-10.4) 04/06/24 06:53 Neut % (Auto) 69.9 % 04/06/24 06:53 Lymph % (Auto) 19.5 % 04/06/24 06:53 [place] % (Auto) 8.9 % 04/06/24 06:53 Eos % (Auto) 0.7 % 04/06/24 06:53 Baso % (Auto) 0.3 % 04/06/24 06:53 Neut # (Auto) 4.08 10^3/uL (1.8-7.7) 04/06/24 06:53 Lymph # (Auto) 1.1 10^3/uL (0.8-4.8) 04/06/24 06:53 [place] # (Auto) 0.5 10^3/uL (0.2-0.9) 04/06/24 06:53 Eos # (Auto) 0.0 10^3/uL (0.0-0.8) 04/06/24 06:53 Baso # (Auto) 0.0 10^3/uL (0.0-0.1) 04/06/24 06:53 Nucleated RBC % (auto) 0 % 04/06/24 06:53 Nucleated RBCs # 0.0 /100WBC 04/06/24 06:53 Sodium 139 mmol/L (136-145) 04/06/24 06:53 Potassium 3.9 mmol/L (3.5-5.1) 04/06/24 06:53 Chloride 99 mmol/L (98-107) 04/06/24 06:53 Carbon Dioxide 29 mmol/L (22-29) 04/06/24 06:53 Anion Gap 14.9 (5-19) 04/06/24 06:53 BUN 18 mg/dL (8-23) 04/06/24 06:53 Creatinine 1.0 mg/dL (0.7-1.2) 04/06/24 06:53 GFR Calculation Not Reportable 04/06/24 06:53 Glucose 117 mg/dL (65-115) H 04/06/24 06:53 Calculated Osmolality 291 mOsm/kg (285-295) 04/06/24 06:53 Calcium 9.4 mg/dL (8.5-10.5) 04/06/24 06:53 Total Bilirubin 0.8 mg/dL (0.15-1.2) 04/06/24 06:53 AST 19 U/L (0-40) 04/06/24 06:53 ALT 16 U/L (0-41) 04/06/24 06:53 Alkaline Phosphatase 48 U/L (40-130) 04/06/24 06:53 Troponin T Baseline 27 ng/L (0-15) H 04/06/24 06:53 Troponin T 120 Minute 23.10 ng/L (0-15) H 12/11/24 08:53 Delta Troponin T -3.90 ABS# (0-10) L 04/06/24 08:53 Troponin T Hi Sens 6Hr 20.90 ng/L (0-15) H 04/06/24 12:57 Troponin T Hi Sens 6Hr Delta -6.10 ng/L (0-12) L 04/06/24 12:57 NT-Pro-B Natriuret Pep 546 pg/mL (0-450) H 04/06/24 06:53 Total Protein 6.2 g/dL (6.6-8.7) L 04/06/24 06:53 Albumin 4.3 g/dL (3.5-5.2) 04/06/24 06:53 Globulin 1.9 g/dL (1.3-4.6) 04/06/24 06:53 Vitamin B12 477 pg/mL (232-1245) 04/06/24 06:53 TSH 4.19 uIU/mL (0.27-4.20) 04/06/24 06:53 Other data: Myocardial perfusion imaging on 04/01/1934 1. Myocardial perfusion imaging revealing moderate to large area of moderate to severely decreased tracer uptake involving the inferior, inferolateral, anterolateral, apical lateral and inferoseptal regions with a significant reversibility suggesting myocardial scarring in the distribution of the right coronary artery and left circumflex artery with significant areas of ischemia. 2. Normal LV ejection fraction of 62%. 3. LV wall motion analysis revealing no gross wall motion abnormalities. 4. Normal LV volume 5. Elevated transient ischemic dilatation ratio 1.53 is also suggestive of significant endocardial ischemia. No similar previous studies are available for comparison Echocardiogram from today Diffuse hypokinesia left ventricular ejection fraction of around 45-50%. Moderate concentric left trickle hypertrophy.Grade I/IV diastolic dysfunction (abnormal relaxation filling pattern), normal to mildly elevated filling pressures. Mildly increased left atrial size. Mild mitral valve regurgitation. Mild aortic valve regurgitation. [id number] tricuspid valve regurgitation. Estimated pulmonary artery peak systolic pressure 40 mmHg. There is no pericardial effusion. There are no intracardiac masses. Compared to the study from 01/23/2022, there is a drop in the LV ejection fraction EKG from today, I told 1124 100% A-V paced rhythm. Further interpretation is not possible A&P Assessment and plan (1) Abnormal nuclear cardiac imaging test: The Myocardial perfusion imaging is suggestive of ischemia in the distribution of the right coronary artery/circumflex artery. In view of the patient's ongoing symptoms of fatigue, heart failure, in order to further evaluate his coronary status, he may benefit from a cardiac catheterization. In the meanwhile, he may be treated with diuretics, beta-erlin, heparin, statin and other symptomatic measures. (2) Congestive heart failure: Patient has features of acute on chronic systolic heart failure. He will be carefully treated with diuretics and other symptomatic measures. Qualifiers: Heart failure type: other Qualified Code(s): I50.9 - Heart failure, unspecified (3) Cardiomyopathy: Most likely he may have ischemic cardiomyopathy. May consider starting him on low-dose of ARB, if the blood pressure tolerates Qualifiers: Cardiomyopathy type: ischemic Qualified Code(s): I25.5 - Ischemic cardiomyopathy (4) Metastatic adenocarcinoma to prostate: This is being followed by the oncology service. Plan Lipid profile on the blood in the lab. Medications as mentioned above. Keep n.p.o. after MN Consider cardiac catheterization tomorrow. The risk of bleeding, hematoma, vascular injury, myocardial infarction, myocardial perforation, malignant cardiac arrhythmias ,CVA, renal failure and other concomitant complications were explained in detail. Patient and her daughter understood this well and consented to proceed. Based on the clinical progress and the results of the above, further recommendations will be made Thank you for the opportunity to evaluate this patient and make these recommendations Coding Level of Care Code 63906 Diagnoses Abnormal nuclear cardiac imaging test R93.1 Other congestive heart failure I50.9 Heart failure type: other Ischemic cardiomyopathy I25.5 Cardiomyopathy type: ischemic Metastatic adenocarcinoma to prostate C79.82
--- NOTE | 2024-04-06 12:51 | ECG_ITS ---
[facility] Date: 2024-04-06 Pat Name: Bhavin Godfrey Department: Room: 107 Gender: Male [employer] [address] Sql Developer: : 1935 Requested By: Lan Watson Order Number: [id number] Mary MD: Garo Epps M.D. Measurements Intervals [place] Rate: 68 P: 77 [place]: 176 QRS: -62 QRSD: 158 T: 114 QT: 453 QTc: 484 Interpretive Statements ELECTRONIC ATRIAL PACEMAKER ELECTRONIC VENTRICULAR PACEMAKER Compared to ECG 04/06/2024 08:38:37 No significant changes Electronically Signed On 04-08-2024 22:19:12 ATTENDING AMBULATORY CARE by Garo Epps M.D. [email or web address]
[2024-04-06] MEDS: memantine 5 mg tablet 10 MG PO (17:54)
[2024-04-06] MEDS: predniSONE 5 mg Tablet PO (17:54)
[2024-04-06] MEDS: tamsulosin 0.4 mg Capsule PO (17:54)
[2024-04-06] MEDS: trazodone 50 mg Tablet PO (17:54)
[2024-04-06] MEDS: FUROsemide 10 mg/mL SDV 2mL 20 MG IVP (20:22)
[2024-04-06] MEDS: potassium chloride ER 20 mEq Tablet PO (20:22)
[2024-04-06] MEDS: atorvastatin 40 mg Tablet PO (20:22)
[2024-04-06 21:12] LABS: Cholesterol 255 mg/dL (0-200); HDL Cholesterol 50 mg/dL (60-100); LDL Cholesterol Calculated 169 mg/dL (50-129); LDL HDL Ratio 3.38 RATIO (0.00-3.22); Triglycerides 178 mg/dL (0-150)
[2024-04-07] VITALS (7 sets, daily range): BP systolic 92–121; BP diastolic 64–87; PULSE 61–92; RESP 17–26; TEMP 36.6–37.2; O2SAT 90–95
[2024-04-07 04:10] LABS: Basophils % 0.2 %; Eosinophils # 0.1 10^3/uL (0.0-0.8); Hematocrit 37.2 % (37-53); Lymphocytes % 16.5 %; Mean Corpuscular Hemoglobin 30.8 pg (27-33); Mean Corpuscular Volume 96.4 fl (82-101); Mean Platelet Volume 8.4 fL (7.4-10.4); Monocytes # 0.5 10^3/uL (0.2-0.9); Monocytes % 9.4 %; Neutrophils # 4.16 10^3/uL (1.8-7.7); Neutrophils % 72.2 %; Nucleated Red Blood Cells % 0 %; Platelet Count 211 10^3/cmm (157-399); Red Blood Count 3.86 10^6/uL (3.85-5.65); White Blood Count 5.76 10^3/uL (3.29-11.43)
[2024-04-07 04:34] LABS: INR 0.94 (0.8-1.2)
[2024-04-07 04:39] LABS: Alanine Aminotransferase 12 U/L (0-41); Albumin Level 3.4 g/dL (3.5-5.2); Alkaline Phosphatase 40 U/L (40-130); Anion Gap 14.1 (5-19); Aspartate Amino Transferase 14 U/L (0-40); Blood Urea Nitrogen 19 mg/dL (8-23); Calcium 8.6 mg/dL (8.5-10.5); Carbon Dioxide 29 mmol/L (22-29); Chloride 100 mmol/L (98-107); Globulin 1.8 g/dL (1.3-4.6); Glucose 136 mg/dL (65-115); Magnesium 2.3 mg/dL (1.7-2.3); Osmolality Calculated 292 mOsm/kg (285-295); Potassium 4.1 mmol/L (3.5-5.1); Sodium 139 mmol/L (136-145); Total Bilirubin 0.4 mg/dL (0.15-1.2); Total Protein 5.2 g/dL (6.6-8.7)
[2024-04-07 04:42] LABS: Cholesterol 221 mg/dL (0-200); HDL Cholesterol 46 mg/dL (60-100); LDL Cholesterol Calculated 152 mg/dL (50-129); Triglycerides 114 mg/dL (0-150)
[2024-04-07] MEDS: levothyroxine 75 mcg Tablet PO (06:11)
[2024-04-07] MEDS: trazodone 50 mg Tablet PO ×2 (09:08→19:55)
[2024-04-07] MEDS: aspirin 325 mg EC Tablet PO (09:08)
[2024-04-07] MEDS: tamsulosin 0.4 mg Capsule PO ×2 (09:09→18:14)
[2024-04-07] MEDS: sennosides-docusate Tablet 1 TAB PO (09:09)
[2024-04-07] MEDS: memantine 5 mg tablet 10 MG PO ×2 (09:09→18:13)
[2024-04-07] MEDS: potassium chloride ER 20 mEq Tablet PO (09:09)
[2024-04-07] MEDS: metoprolol tartrate 25 mg Tablet 12.5 MG PO ×2 (09:09→18:13)
[2024-04-07] MEDS: predniSONE 5 mg Tablet PO ×2 (09:10→18:13)
[2024-04-07] MEDS: finasteride 5 mg Tablet PO (09:10)
[2024-04-07] MEDS: FUROsemide 10 mg/mL SDV 2mL 20 MG IVP ×2 (09:10→19:55)
[2024-04-07] MEDS: enoxaparin 40 mg/0.4 mL Syringe SUBCUT (09:13)
--- NOTE | 2024-04-07 10:26 | P.PN_ITS ---
Subjective 2 Subjective: Chest pain overnight. No shortness of breath, although has not really been ambulating much in the room. Cardiology intends angiogram today, late in the afternoon. Medications: Reviewed: Yes Vitals/I&O/Wt Last Vital Signs Temp 98.4 F 04/07/24 07:28 Pulse 64 04/07/24 07:28 Resp 21 H 04/07/24 07:28 BP 113/64 04/07/24 07:28 Pulse Ox 95 04/07/24 07:28 O2 Del Method Room Air 04/07/24 07:28 04/06/24 04/07/24 04/07/24 22:59 06:59 14:59 Intake Total 360 / 1160 Output Total 400 / 400 Balance 360 / 1160 -400 / 760 Weight last 48 hrs Weight 68.691 kg Weight 68.691 kg Weight 68.492 kg Physical Exam 2 Narrative: General Exam no distress Neck is supple no lymphadenopathy thyromegaly Cardiovascular regular rate and rhythm with 2/6 systolic murmur Lungs clear no wheezing or crackles Abdomen soft nontender positive bowel sounds. No obvious organomegaly Extremities no cyanosis clubbing edema, cap refill brisk Data 04/07/24 03:30 04/07/24 03:30 A&P Assessment and plan (1) Chest pain: Patient had chest pain 2 days ago He has had significant exertional dyspnea which may be anginal equivalent Troponin is elevated, but no trend to suggest acute [place] Continue aspirin 325 mg daily Lipid profile in the morning TSH normal, echocardiogram shows ejection fraction of 45 to 50% and mild to moderate tricuspid regurgitation. Diffuse hypokinesia is noted. 1/4 diastolic dysfunction Cardiology consult appreciated Lovenox for DVT prophylaxis Metoprolol low-dose added by cardiology, as well as statin. LDL was 152. Plan Memory difficulties with history of dementia. B12 and TSH was normal Prostate cancer. Continue his prednisone which he is on chronically. Multiple other medical problems as outlined in past medical history Full code currently Lovenox for DVT prophylaxis Attestations 2 Medical Necessity Statement*: Needs continued hospitalization for definitive evaluation of chest discomfort with abnormal stress test and abnormal echocardiogram. Diagnoses Chest pain R07.9 Time Spent (min) 21
[2024-04-07] MEDS: magnesium hydroxide 30 mL UDC PO (12:03)
--- NOTE | 2024-04-07 13:01 | P.PN_ITS ---
Subjective 2 Subjective: Patient is feeling better. No chest pain or chest tightness. The vitals remained stable. The shortness of breath has improved. Medications: Medication Review Details: Current Medications Acetaminophen (Acetaminophen 325 Mg Tablet) 650 mg PO Q6H PRN PRN Reason: Mild/Mod Pain Or Temp >/= 101 Aspirin (Aspirin 325 Mg Ec Tablet) 325 mg PO DAILY [facility] Last Admin: 04/07/24 09:08 Dose: 325 mg Atorvastatin Calcium (Atorvastatin 40 Mg Tablet) 40 mg PO BEDTIME [facility] Last Admin: 04/06/24 20:22 Dose: 40 mg Diphenhydramine HCl (Diphenhydramine 50 Mg Capsule) 50 mg PO ONCE ONE Stop: 04/08/24 05:01 Enoxaparin Sodium (Enoxaparin 40 Mg/0.4 Ml Syringe) 40 mg SUBCUT Q24H [facility] Last Admin: 04/07/24 09:13 Dose: 40 mg Finasteride (Finasteride 5 Mg Tablet) 5 mg PO DAILY [facility] Last Admin: 04/07/24 09:10 Dose: 5 mg Furosemide (Furosemide 10 Mg/Ml Sdv 2ml) 20 mg IVP Q12H [facility] Last Admin: 04/07/24 09:10 Dose: 20 mg Sodium Chloride (Sodium Chloride 0.9%) 1,000 mls @ 50 mls/hr IV .Q20H ONE Stop: 04/09/24 01:59 Levothyroxine Sodium (Levothyroxine 75 Mcg Tablet) 75 mcg PO QAM [facility] Last Admin: 04/07/24 06:11 Dose: 75 mcg Magnesium Hydroxide (Magnesium Hydroxide 30 Ml Udc) 30 ml PO BID PRN PRN Reason: CONSTIPATION Last Admin: 04/07/24 12:03 Dose: 30 ml Memantine (Memantine 5 Mg Tablet) 10 mg PO BID [facility] Last Admin: 04/07/24 09:09 Dose: 10 mg Metoprolol Tartrate (Metoprolol Tartrate 25 Mg Tablet) 12.5 mg PO BID [facility] Last Admin: 04/07/24 09:09 Dose: 12.5 mg Ondansetron HCl (Ondansetron 2 Mg/Ml Sdv 2 Ml) 4 mg IVP Q6H PRN PRN Reason: NAUSEA AND VOMITING Potassium Chloride (Potassium Chloride Er 20 Meq Tablet) 20 meq PO DAILY [facility] Last Admin: 04/07/24 09:09 Dose: 20 meq Prednisone (Prednisone 5 Mg Tablet) 5 mg PO BID [facility] Last Admin: 04/07/24 09:10 Dose: 5 mg Senna/Docusate Sodium (Sennosides-Docusate Tablet) 1 tab PO DAILY [facility] Last Admin: 04/07/24 09:09 Dose: 1 tab Tamsulosin HCl (Tamsulosin 0.4 Mg Capsule) 0.4 mg PO BID [facility] Last Admin: 04/07/24 09:09 Dose: 0.4 mg Trazodone HCl (Trazodone 50 Mg Tablet) 50 mg PO BID [facility] Last Admin: 04/07/24 09:08 Dose: 50 mg Vitals/I&O/Wt Last Vital Signs Temp 98.2 F 04/07/24 12:00 Pulse 91 04/07/24 12:00 Resp 26 H 04/07/24 12:00 BP 121/87 04/07/24 12:00 Pulse Ox 94 04/07/24 12:00 O2 Del Method Room Air 04/07/24 12:00 04/06/24 04/07/24 04/07/24 22:59 06:59 14:59 Intake Total 360 / 1160 Output Total 400 / 400 Balance 360 / 1160 -400 / 760 Weight last 48 hrs Weight 151 lb 7 oz Weight 151 lb 7 oz Weight 151 lb Physical Exam 2 Narrative: GENERAL: The patient is alert and oriented times three. Not in any acute distress. [] HEENT: No significant pallor, icterus or lymphadenopathy.Oral cavity: There are no mucous membrane lesions. NECK: Trachea appears to be central. No masses noted. No JVD or thyromegaly appreciated. RESPIRATORY: Chest is symmetrical. No intercostals muscle retraction or any accessory muscle activation. There is no chest wall tenderness. Breath sounds are heard bilaterally. No rales or rhonchi heard. No evidence of any consolidation. [] BREASTS: Deferred. [] HEART: The heart sounds are normal. No S3 or S4. Short systolic murmur in the left frontal border. No diastolic murmurs.. No pericardial rub ABDOMEN: No vessel pulsations or distention. No tenderness. No organomegaly appreciated. Bowel sounds are normally heard. [] : Deferred. [] RECTAL: Deferred. [] LYMPHATIC: No lymphadenopathy noted in the neck. EXTREMITIES: Trace edema with no cyanosis MUSCULOSKELETAL: No acute joint deformities or swelling SKIN: There are no significant rashes or ecchymosis NEUROPSYCHIATRIC: The patient is alert and oriented x3. Appears to be in a good mood. No tremors or rigidity noted. [] Data 04/07/24 03:30 04/07/24 03:30 Other Labs: Laboratory Last Values WBC 5.76 10^3/uL (3.29-11.43) 04/07/24 03:30 RBC 3.86 10^6/uL (3.85-5.65) 04/07/24 03:30 Hgb 11.90 g/dL (11.27-16.99) 04/07/24 03:30 Hct 37.2 % (37-53) 04/07/24 03:30 MCV 96.4 fl (82-101) 04/07/24 03:30 MCH 30.8 pg (27-33) 04/07/24 03:30 MCHC 32.0 g/dL (30-55) 04/07/24 03:30 RDW 13.0 % (12.1-15.1) 04/07/24 03:30 Plt Count 211 10^3/cmm (157-399) 04/07/24 03:30 MPV 8.4 fL (7.4-10.4) 04/07/24 03:30 Neut % (Auto) 72.2 % 04/07/24 03:30 Lymph % (Auto) 16.5 % 04/07/24 03:30 [place] % (Auto) 9.4 % 04/07/24 03:30 Eos % (Auto) 1.0 % 04/07/24 03:30 Baso % (Auto) 0.2 % 04/07/24 03:30 Neut # (Auto) 4.16 10^3/uL (1.8-7.7) 04/07/24 03:30 Lymph # (Auto) 1.0 10^3/uL (0.8-4.8) 04/07/24 03:30 [place] # (Auto) 0.5 10^3/uL (0.2-0.9) 04/07/24 03:30 Eos # (Auto) 0.1 10^3/uL (0.0-0.8) 04/07/24 03:30 Baso # (Auto) 0.0 10^3/uL (0.0-0.1) 04/07/24 03:30 Nucleated RBC % (auto) 0 % 04/07/24 03:30 Nucleated RBCs # 0.0 /100WBC 04/07/24 03:30 PT 12.90 SECONDS (12.1-14.9) 04/07/24 03:30 INR 0.94 (0.8-1.2) 04/07/24 03:30 Sodium 139 mmol/L (136-145) 04/07/24 03:30 Sodium Cancelled 04/07/24 03:30 Potassium 4.1 mmol/L (3.5-5.1) 04/07/24 03:30 Potassium Cancelled 04/07/24 03:30 Chloride 100 mmol/L (98-107) 04/07/24 03:30 Chloride Cancelled 04/07/24 03:30 Carbon Dioxide 29 mmol/L (22-29) 04/07/24 03:30 Carbon Dioxide Cancelled 04/07/24 03:30 Anion Gap 14.1 (5-19) 04/07/24 03:30 Anion Gap Cancelled 04/07/24 03:30 BUN 19 mg/dL (8-23) 04/07/24 03:30 BUN Cancelled 04/07/24 03:30 Creatinine 0.9 mg/dL (0.7-1.2) 04/07/24 03:30 Creatinine Cancelled 04/07/24 03:30 GFR Calculation Cancelled 04/07/24 03:30 GFR Calculation Not Reportable 04/07/24 03:30 Glucose 136 mg/dL (65-115) H 04/07/24 03:30 Glucose Cancelled 04/07/24 03:30 Calculated Osmolality 292 mOsm/kg (285-295) 04/07/24 03:30 Calculated Osmolality Cancelled 04/07/24 03:30 Calcium 8.6 mg/dL (8.5-10.5) 04/07/24 03:30 Calcium Cancelled 04/07/24 03:30 Magnesium 2.3 mg/dL (1.7-2.3) 04/07/24 03:30 Total Bilirubin 0.4 mg/dL (0.15-1.2) 04/07/24 03:30 AST 14 U/L (0-40) 04/07/24 03:30 ALT 12 U/L (0-41) 04/07/24 03:30 Alkaline Phosphatase 40 U/L (40-130) 04/07/24 03:30 Troponin T Baseline 27 ng/L (0-15) H 04/06/24 06:53 Troponin T 120 Minute 23.10 ng/L (0-15) H 04/06/24 08:53 Delta Troponin T -3.90 ABS# (0-10) L 04/06/24 08:53 Troponin T Hi Sens 6Hr 20.90 ng/L (0-15) H 04/06/24 12:57 Troponin T Hi Sens 6Hr Delta -6.10 ng/L (0-12) L 04/06/24 12:57 NT-Pro-B Natriuret Pep 546 pg/mL (0-450) H 04/06/24 06:53 Total Protein 5.2 g/dL (6.6-8.7) L 04/07/24 03:30 Albumin 3.4 g/dL (3.5-5.2) L 04/07/24 03:30 Globulin 1.8 g/dL (1.3-4.6) 04/07/24 03:30 Triglycerides 114 mg/dL (0-150) 04/07/24 03:30 Cholesterol 221 mg/dL (0-200) H 04/07/24 03:30 LDL Cholesterol, Calc 152 mg/dL (50-129) H 04/07/24 03:30 HDL Cholesterol 46 mg/dL (60-100) L 04/07/24 03:30 LDL/HDL Ratio 3.30 RATIO (0.00-3.22) H 04/07/24 03:30 Cholesterol/HDL Ratio 4.80 mg/dL (1.0-5.00) 04/07/24 03:30 Vitamin B12 477 pg/mL (232-1245) 04/06/24 06:53 TSH 4.19 uIU/mL (0.27-4.20) 04/06/24 06:53 A&P Assessment and plan (1) Abnormal nuclear cardiac imaging test: The Myocardial perfusion imaging is suggestive of ischemia in the distribution of the right coronary artery/circumflex artery. In view of the patient's ongoing symptoms of fatigue, heart failure, in order to further evaluate his coronary status, he may benefit from a cardiac catheterization. In the meanwhile, he may be treated with diuretics, beta-erlin, heparin, statin and other symptomatic measures. So far the patient seems to be tolerating medications well (2) Congestive heart failure: Patient has features of acute on chronic systolic heart failure. He will be carefully treated with diuretics and other symptomatic measures. Patient is responding to the current measures Qualifiers: Heart failure type: other Qualified Code(s): I50.9 - Heart failure, unspecified (3) Cardiomyopathy: Most likely he may have ischemic cardiomyopathy. May consider starting him on low-dose of ARB, if the blood pressure tolerates Qualifiers: Cardiomyopathy type: ischemic Qualified Code(s): I25.5 - Ischemic cardiomyopathy (4) Metastatic adenocarcinoma to prostate: This is being followed by the oncology service. Plan Because of some technical issues, cardiac catheterization could not be performed today. Patient is scheduled for the procedure in the morning. Will keep n.p.o. after midnight. Continue on the current medications. Attestations 2 Medical Necessity Statement*: Patient requires continued hospital stay for close monitoring and further management Coding Level of Care Code 02325 Diagnoses Abnormal nuclear cardiac imaging test R93.1 Other congestive heart failure I50.9 Heart failure type: other Ischemic cardiomyopathy I25.5 Cardiomyopathy type: ischemic Metastatic adenocarcinoma to prostate C79.82
[2024-04-07] MEDS: [UNRECOGNIZED DRUG - REMARK] PO (15:57)
[2024-04-07] MEDS: atorvastatin 40 mg Tablet PO (19:55)
[2024-04-08] VITALS (48 sets, daily range): BP systolic 92–132; BP diastolic 59–82; PULSE 60–80; RESP 9–25; TEMP 36.3–37; O2SAT 87–95
[2024-04-08 04:05] LABS: Basophils % 0.4 %; Eosinophils # 0.1 10^3/uL (0.0-0.8); Eosinophils % 0.9 %; Hematocrit 37.9 % (37-53); Lymphocytes % 18.4 %; Mean Corpuscular HGB Conc 31.4 g/dL (30-55); Mean Corpuscular Hemoglobin 30.4 pg (27-33); Mean Corpuscular Volume 96.7 fl (82-101); Mean Platelet Volume 8.3 fL (7.4-10.4); Monocytes # 0.5 10^3/uL (0.2-0.9); Monocytes % 9.7 %; Neutrophils # 3.87 10^3/uL (1.8-7.7); Neutrophils % 69.7 %; Nucleated Red Blood Cells % 0 %; Platelet Count 214 10^3/cmm (157-399); Red Blood Count 3.92 10^6/uL (3.85-5.65); Red Cell Distribution Width 12.9 % (12.1-15.1); White Blood Count 5.55 10^3/uL (3.29-11.43)
[2024-04-08 04:32] LABS: INR 0.94 (0.8-1.2)
[2024-04-08 04:47] LABS: Anion Gap 12.1 (5-19); Blood Urea Nitrogen 26 mg/dL (8-23); Calcium 8.4 mg/dL (8.5-10.5); Carbon Dioxide 31 mmol/L (22-29); Chloride 101 mmol/L (98-107); Creatinine Clr Calc Pharmacy 44.8339; Glucose 145 mg/dL (65-115); Osmolality Calculated 297 mOsm/kg (285-295); Potassium 4.1 mmol/L (3.5-5.1); Sodium 140 mmol/L (136-145)
[2024-04-08] MEDS: diphenhydrAMINE 50 mg Capsule PO (04:59)
[2024-04-08] MEDS: levothyroxine 75 mcg Tablet PO (04:59)
[2024-04-08] MEDS: sodium chloride 0.9% 1,000 ML 50 ML IV (05:00)
--- NOTE | 2024-04-08 06:00 | XACV_ITS ---
Exam Room: [facility] Ht: 168 cm Wt: 68 kg BSA: 1.79 m2 Gender: Male : 1935 Any Known Allergies: No known allergies Exam Priority: Routine Procedure(s): Procedure Description: Diagnostic procedure Procedure Description: PCI procedure Procedure Description: Left Heart Catheterization Procedure Description: Drug Eluting Coronary Stent Procedure Description: PTCA Procedure Description: Miscellaneous Procedure Description: ACT Procedure Description: Coronary Angiography Lc SHI; Diagnostic Cath Status: Elective Diagnostic Findings * The left main is a medium caliber elongated vessel which appears to have mild diffuse disease with no significant stenotic lesions. * The left anterior descending artery is a medium caliber vessel which appears to taper off towards the LV apex. The artery appears to have mild to moderate diffuse calcification in the proximal and mid segment. It gives ofmainly to diagonal branches. The first diagonal branch is the small to medium caliber vessel which has a 60 to 70% ostial narrowing. The second diagonal branch is of small caliber as the LAD proper. Minimal intimal irregularities are noted in this vessel. The mid LAD was found to have mild diffuse disease. Distal LAD also was found to have minimal intimal irregularities. No significant stenotic lesions were noted. * . * The right coronary artery is a medium caliber dominant vessel which was found to have mild diffuse intimal regularities proximally. The PDA branch of the artery was found to have around 90% lesion proximally, involving the ostium. The PLV branch was found to have minimal intimal irregularities. No significant stenotic lesions were noted. * LV gram was not performed, because of the concern about dye overload.. The LVEDP was 8 mmHg. PCI Status: Elective PCI Indication: New Onset Angina <= 2 months Interventional Findings * Indication: Abnormal stress test/chest pain suggestive of angina. * Patient had inferior inferolateral ischemia on the stress test. It appeared to me that patient has mid circumflex eccentric significant stenosis given the distribution of ischemia and by angiogram I thought it to be significant therefore we proceeded with PCI of the mid circumflex as well.. * Mid Circumflex: 80% stenosis treated with a AB TREK 2.50X12 RX BALLOON, MDT R HERBER 2.75X12 KATIUSKA, and MDT NC EUPHORA RX [id number] BALLOON. 0% residual stenosis, MARILEE: 3 flow. Successful intervention. * Posterior Descending Right: 90% stenosis treated with a AB MINI TREK 2.00X12 RX BALLOON, MDT R HERBER 2.25X15 KATIUSKA, and MDT NC EUPHORA RX 2.38M78WS BALLOON. 0% residual stenosis, MARILEE: 3 flow. Conclusions 1. . 2. This is an 88-year-old white male with history of cardiomyopathy and congestive heart failure, was found to have areas of ischemia in the distribution of the right coronary artery and the left circumflex artery. He has complaining of extreme fatigue and dyspnea on exertion. In view of his ongoing symptoms and the abnormal objective findings, in order to further evaluate his coronary status, a cardiac catheterization was recommended. Patient underwent left heart catheterization with left and right coronary angiogram. The findings are as follows. 3. 1. Mild disease in the left main. #2 mild diffuse disease in the proximal and mid segment of the left anterior descending artery. #3 nondominant circumflex artery with a 50 to 60% lesion in one of the obtuse marginal branches. #4 Around 90% lesion in the PLV branch of the right coronary artery. #5. LVEDP of 8 mmHg. 4. I reviewed and discussed the cardiac arrest and data with Dr. Platt. It was thought to be appropriate to go ahead and do the PCI of the PLV branch of the right coronary artery. Dr. Platt took over further management this patient at this point. 5. Mid Circumflex was treated with a Balloon, Drug Eluting Stent, and Balloon. 6. Posterior Descending Right was treated with a Balloon, Drug Eluting Stent, and Balloon. Recommendations * 1-Return to inpatient for close monitoring and routine cath care 2-Risk factor modification for secondary prevention 3-Statin and aspirin 81 mg life-long, if tolerated 4-Patient was pre-loaded with 600 mg of Plavix, continue Plavix 75mg p.o. daily for at least one year. We will assess at the end of one year again to continue if further or not 5-Continue optimal medical management 6-Follow up with Dr. Childress in four weeks and your primary care in 10 days. Interventional RX Recommendation: PCI w/o planned CABG Diagnostic RX Recommendation: PCI w/o planned CABG LV EDP: 8 mmHg Left Ventriculography Findings: * LV gram was not performed because of the concern about dye overload. Pressures Phase:Rest AO : 137 / 74 ( 98 ) @ 7:26:00 AM 109 / 64 ( 80 ) @ 7:34:00 AM 117 / 62 ( 84 ) @ 7:34:00 AM 134 / 68 ( 91 ) @ 7:41:00 AM 137 / 73 ( 101 ) @ 8:35:00 AM 127 / 68 ( 92 ) @ 8:42:00 AM LV : 123 / 2 / 8 @ 7:34:00 AM 118 / 1 / 7 @ 7:34:00 AM Valves Phase:DefaultPhase AV : 10.0 @ 9:08:33 AM AV Mean Gradient: 8.0 @ 9:08:33 AM Clinical Evaluation EBL: 5mL-10mL Procedural Details Procedure Consent Obtained. Admit Source: In Patient. Pre-Procedure Time Out. Identified patient by full name and date of as verbalized by the patient/guarantor. Does the consent match the physician's order: Yes. Accurate & Complete Informed Consent: Yes. Inpatient/Outpatient History & Physical on Chart: Yes. If H&P is completed, is and addenduem needed: No; If yes, is the addendum complete: N/A. Visualize and Verify Site with Patient/Guarantor: N/A. Relevant Radiology Images available: N/A. The risks, benefits, and alternatives of sedation and/or procedure were discussed by physician. The patient agrees to continue. Procedure started. [facility] Clinical Fraility Score: 4: Vulnerable. Title I Coordinator Indications: Worsening Angina, LV dysfunction. Chest Pain Symptom Assessment: Typical Angina Symptoms. Correct patient, site and procedure confirmed by cath team. Current diagnosis: Chest Pain, Cardiomyopathy, LV dysfunction. PERRLA. Strong, equal hand truck repair service estimator bilaterally. Lungs clear x 5 lobes. IV Site on Arrival: 20 gauge in the left anticubital. IV Fluids: 0.9% NaCl at KVO. 0 mL infused prior to electroplating laborer. Pre Procedural Pulses: bilateral radial was 3+. Pre Procedural Pulses: bilateral posterior tibial was Doppled. Pre Procedural Pulses: bilateral radial was 4+. Pre Procedural Pulses: bilateral dorsalis pedis was Doppled. Oxygen started at 2liters/min via nasal canula. right radial was prepped with chloroprep then draped in the usual sterile fashion. right groin was prepped with chloroprep then draped in the usual sterile fashion. Physician notified. Baseline sample Acquired. HR: 71 BPM. Physician arrived. Physician scrubbed in. Immediate Pre-Procedure Time Out. Correct Patient: Yes; Correct Procedure: Yes; Correct Site: Yes; Correct Patient Position: Yes; Correct Supplies: Yes; Dried Flammable Prep: Yes; Blood Products Available: Yes;. Lidocaine 1% infiltrated to the right radial. Arterial access obtained. Hand injection through radial sheath. Due to tortuosity , radial procedure aborted. A TR Band was successful obtaining hemostatsis at the Right Radial artery insertion site. Lidocaine 1% infiltrated to the right groin. Arterial access obtained with micropuncture set. A 5 filipino JL4 catheter in over wire. Multiple views taken of left coronary artery. Catheter removed over the exchange wire. A 5 filipino JR4 catheter in over wire. EDP Sample taken: LV 123/2,8; HR: 60 BPM; SpO2: 97%. Pullback taken: LV 118/1,7; AO 109/64(80); Mean: 8mmHg, Peak to Peak: 10mmHg, SEP: 19sec/min; HR: 64 BPM; SpO2: 97%. Multiple views taken of right coronary artery. Catheter removed over the exchange wire. Dr. Platt called to lab to review cine films. Side port of sheath attached to Normal Saline flush at KVO to maintain patency. Physician scrubbed out. Dr. Platt reviewed cine films, patient family updated. Dr. Platt scrubbed in to perform intervention. ACT drawn. Results 164 seconds. Therapeutic limits - pre-heparin administration 90-150 seconds and monitoring heparin during a vascular procedure >250 seconds. 6 filipino JR 4 guide catheter was inserted over the wire. Add inventory: Co-pilot control operator, Endoflator. Guide catheter out over wire. 6fr short sheath exchanged for 6fr 45cm sheath over exchange wire. New JR 4 guide obtained. 6 filipino JR 4 guide catheter was inserted over the wire. ACT drawn. Results 286 seconds. Therapeutic limits - pre-heparin administration 90-150 seconds and monitoring heparin during a vascular procedure >250 seconds. Runthrough guidewire was advanced through the guide catheter to lesion in the PDA. BMW guidewire was advanced through the guide catheter to lesion in the PLV. Balloon inserted to lesion in the PDA. Inflation number : 1 A AB MINI TREK 2.00X12 RX BALLOON was prepped and advanced across the R PDA , then inflated to 12 ELIZABET for 0:11 seconds. Inflation number: 2 The AB MINI TREK 2.00X12 RX BALLOON was reinflated across the R PDA, to 12 ELIZABET for 0:10 seconds. Balloon out. Stent inserted to lesion in the PDA. Inflation Number : 3 A MDT R HERBER 2.25X15 KATIUSKA -Lot Number# [id number] EXP 11-13-2025 was prepped and advanced across the R PDA. The stent was deployed at 14 ELIZABET for 0:19 seconds. Stent balloon out over wire. Balloon inserted to lesion in the PDA. Inflation number : 4 A MDT NC EUPHORA RX [id number] BALLOON was prepped and advanced across the R PDA , then inflated to 14 ELIZABET for 0:08 seconds. Inflation number: 5 The MDT NC EUPHORA RX [id number] BALLOON was reinflated across the R PDA, to 16 ELIZABET for 0:14 seconds. Balloon out. Results checked. Runthrough and bmw wire out. Guide catheter out. 6 filipino XB 3 guide catheter was inserted over the wire. ACT drawn. Results 276 seconds. Therapeutic limits - pre-heparin administration 90-150 seconds and monitoring heparin during a vascular procedure >250 seconds. Guide catheter out. 6 filipino XB 3.5 guide catheter was inserted over the wire. Runthrough guidewire was advanced through the guide catheter to lesion in the mid Circ. Balloon inserted to lesion in the mid Circ. Inflation number : 1 A AB TREK 2.50X12 RX BALLOON was prepped and advanced across the Mid CX , then inflated to 12 ELIZABET for 0:11 seconds. Results checked. Balloon out. Stent inserted to lesion in the mid Circ. Inflation Number : 2 A MDT R HERBER 2.75X12 KATIUSKA -Lot Number#[id number] EXP 04-02-2026 was prepped and advanced across the Mid CX. The stent was deployed at 12 ELIZABET for 0:20 seconds. Stent balloon out over wire. Balloon inserted to lesion in the mid Circ. Inflation number : 3 A MDT NC EUPHORA RX [id number] BALLOON was prepped and advanced across the Mid CX , then inflated to 14 ELIZABET for 0:15 seconds. Inflation number: 4 The MDT NC EUPHORA RX [id number] BALLOON was reinflated across the Mid CX, to 12 ELIZABET for 0:08 seconds. Inflation number: 5 The MDT NC EUPHORA RX [id number] BALLOON was reinflated across the Mid CX, to 12 ELIZABET for 0:10 seconds. Balloon out. Results checked. Wire out. New 6 fr sheath obtained. 6fr 45cm flexor sheath exchanged for new short 6 fr sheath. Guide catheter out. A Suture was successful obtaining hemostatsis at the Right Femoral artery insertion site. Sheath(s) sutured into position with 2-0 silk and sterile 4x4's and Op-site applied over the site. No oozing or signs and symptoms of hematoma noted. Arterial sheath flushed and connected to tranducer and pressure bag with heparinized saline. Post Procedure: Pulses reassessed and unchanged. PERRLA. Strong, equal hand truck repair service estimator bilaterally. No VTE prophylaxis required. Medication's Wasted: Lidocaine 1% = 5 mL. Medication's Wasted: Nitro = 49.8 mg. Medication's Wasted: Heparin = 1500 unit. Total IV fluids: 350 mL. Post-op diagnosis: Severe PDA stenosis and mid circumflex stenosis. Status post PCI placement of 2 stents. Complications: None. Estimated blood loss: 5mL-10mL. Responsiveness - Normal response to verbal stimuli; alert and oriented, PERRLA. Airway - Unaffected, no intervention required; spontaneous ventilation. Circulation: W/N/L, pulses unchanged. Nausea/Vomiting: No. Procedure completed. Patient transferred by bed to 1st floor. Vital chart was stopped. Access Site Site: Right Radial artery Sheath Size: 6 Fr Hemostasis Method: TR Band Hemostasis Success: Successful Site: Right Femoral artery Sheath Size: 6 Fr Hemostasis Method: Suture Hemostasis Success: Successful Procedure Medications Start: 7:03 AM Stop: 7:03 AM Medication: Versed Amount: 1 mg Route: I.V. Start: 7:03 AM Stop: 7:03 AM Medication: Fentanyl Amount: 25 mcg Route: I.V. Start: 7:26 AM Stop: 7:26 AM Medication: Heparin Amount: 1500 units Route: I.V. Start: 7:27 AM Stop: 7:27 AM Medication: Fentanyl Amount: 25 mcg Route: I.V. Start: 7:35 AM Stop: 7:35 AM Medication: 0.9% Saline Amount: 250 ml Route: I.V. bolus Start: 8:05 AM Stop: 8:05 AM Medication: Plavix Amount: 600 mg Route: P.O. Start: 8:06 AM Stop: 8:06 AM Medication: Heparin Amount: 6000 units Route: I.V. Start: 8:07 AM Stop: 8:07 AM Medication: Versed Amount: 1 mg Route: I.V. Start: 8:22 AM Stop: 8:22 AM Medication: Heparin Amount: 2000 units Route: I.V. Start: 8:38 AM Stop: 8:38 AM Medication: Fentanyl Amount: 25 mcg Route: I.V. Start: 8:49 AM Stop: 8:49 AM Medication: Heparin Amount: 3000 units Route: I.V. Start: 8:49 AM Stop: 8:49 AM Medication: Fentanyl Amount: 25 mcg Route: I.V. Start: 9:00 AM Stop: 9:00 AM Medication: Nitrogylcerin Amount: 200 mcg Route: I.C. I, the attending physician, have reviewed and verified all procedure medications. Yes, all medications given per verbal order History/Risk Factors Hypertension: No Dyslipidemia: No Peripheral Arterial Disease (PAD): No Myocardial Infarction (ID): No Obesity: No Renal Disease: No Tobacco Use: Never Prior Interventions PCI: No CABG: No Valve Surgery: No Report Signatures Interventional Workflow Finalized by Brittnee Platt MD on 04/10/2024 07:39 PM Diagnostic Workflow Finalized by Dr Nae Childress MD [facility] on 04/08/2024 12:24 PM
--- NOTE | 2024-04-08 06:44 | W.PM.OPSUD ---
Surgery/Procedure H&P Update DATE OF PROCEDURE: April 08, 2024 DATE H&P PERFORMED: 04/06/24 H&P UPDATE INFORMATION: I have reviewed H&P completed within last 30 days, I have examined patient prior to procedure and No changes to prior documentation PREOP DIAGNOSIS: Possible ASHD PRIMARY INDICATION FOR PROCEDURE: Patient with chest pain/heart failure, LV dysfunction, abnormal Myocardial perfusion imaging PLANNED PROCEDURE: Operation Date: 04/07/24 16:00 Proposed Procedures p Cardiac Catheterization(Left) - Nae Childress MD PATIENT REASSESSED PRIOR TO SEDATION, WITH NO CHANGE NOTED: Yes PHYSICAL EXAM: alert, oriented x 3, clear to auscultation bilaterally and regular rate & rhythm AIRWAY EVAL/ANESTHESIA PLAN: normal airway, see other exam findings and ASA III
--- NOTE | 2024-04-08 07:43 | PC.NURSE ---
to cardiac laboratory phlebotomist at 0700
--- NOTE | 2024-04-08 08:54 | PC.CHAP ---
Pastoral Care Encounter/Spiritual Assessment Type of Contact [] Declined whiskey proof reader visit [] Patient/Family/Request visit [] Outpatient visit [] Follow-up visit [] Physician referral [] Code/Alert [] Routine visit [] Staff referral [] Actively dying [] Patient sleeping [] Family support [] [x] Out of room [] Palliative care [] [] Receiving care in room [] Pre-surgical visit [] Trauma [] Long length of stay [] ICU visit [] Other: Relational/Emotional Strength [] Patient feels connected with others/family/visitors/staff [] Distress [] Loneliness/isolation [] Abandonment Spirituality of Patient [] Person of Amber [] Attends Religion of their Amber [] Believes in Prayer [] Reads Bible or Catholic materials [] There are Spiritual issues to be addressed Juvenile Court Judge Interventions [] Prayer [] Active listening [] Non-anxious presence [] Spiritual/emotional support [] Crisis/trauma care [] Spiritual counseling [] Bereavement support [] Provided bereavement packet [] Provided Bible/devotional materials [] Provided toy/stuffed animal, coloring book to patient or family member [] Provided Communion [] Anointing/[place] [] Salvation [] Completed spiritual assessment [] Other: Impact on Illness or Injury [] Angry [] Fearful [] Anxious [] Often cries [] Exhaustion [] Unable to work [] Unable to attend orthodox [] Unable to walk/stand [] Unable to read [] Unable to drive [] Unable to eat/drink [] Unable to sleep [] Unable to be with family [] Patient intubated [] Other: Summary Time spent with patient
--- NOTE | 2024-04-08 09:17 | PM.PROC ---
Procedure Note: Date of procedure: 04/08/24 Pre-procedure diagnosis: Abnormal stress test chest pain Post-procedure diagnosis: same Procedure: Left heart cath was performed by Dr. Childress. I was called to assess the lesion patient has significant proximal PDA and mid left circumflex stenosis. Both were treated with drug-eluting stents postdilated with noncompliant balloon. Excellent angiographic result with MARILEE-3 flow was achieved Plan: Dual antiplatelet therapy in the form of aspirin 81 mg 75 mg of Plavix for 1 year at least. Patient was loaded with 600 mg of Plavix. Resume home medications. Right common femoral artery sheath in place. Once PTT less than 45 please pull out the sheath. Bedrest for 5-hour after pulling of the sheath. Estimated blood loss (mL): 10 IV fluids (mL): 100 Complications: None Coding Level of Care Code Acute Code for Laurel Gibbs
--- NOTE | 2024-04-08 09:46 | P.PN_ITS ---
Subjective 2 Subjective: No issues overnight. Had his angiogram this morning, received a PDA and mid circumflex stent without complication. Denies any chest discomfort currently. Medications: Reviewed: Yes Vitals/I&O/Wt Last Vital Signs Temp 97.9 F 04/08/24 09:13 Pulse 62 04/08/24 09:13 Resp 14 04/08/24 09:13 BP 119/81 04/08/24 09:13 Pulse Ox 90 04/08/24 04:00 O2 Del Method Room Air 04/08/24 04:00 04/07/24 04/08/24 04/08/24 22:59 06:59 14:59 Intake Total 480 / 840 Balance 480 / 840 Weight last 48 hrs Weight 68.691 kg Weight 68.691 kg Weight 68.691 kg Physical Exam 2 Narrative: General Exam no distress Neck is supple no lymphadenopathy thyromegaly Cardiovascular regular rate and rhythm with 2/6 systolic murmur Lungs clear no wheezing or crackles Abdomen soft nontender positive bowel sounds. No obvious organomegaly Extremities no cyanosis clubbing edema, cap refill brisk. She has noted Data 04/08/24 03:20 04/08/24 03:20 A&P Assessment and plan (1) Chest pain: Patient had chest pain 2 days ago He has had significant exertional dyspnea which may be anginal equivalent Troponin is elevated, but no trend to suggest acute ME Continue aspirin 325 mg daily, statin, Plavix, metoprolol Angiogram today demonstrated significant coronary disease, PDA and mid circumflex stent placed, drug-eluting TSH normal, echocardiogram shows ejection fraction of 45 to 50% and mild to moderate tricuspid regurgitation. Diffuse hypokinesia is noted. 1/4 diastolic dysfunction Cardiology consult appreciated Plan Memory difficulties with history of dementia. B12 and TSH was normal Prostate cancer. Continue his prednisone which he is on chronically. Hydrocodone as needed pain Multiple other medical problems as outlined in past medical history Full code currently Lovenox for DVT prophylaxis Attestations 2 Medical Necessity Statement*: Needs continued hospital stay, for close follow-up following drug-eluting stent placement. Diagnoses Chest pain R07.9 Time Spent (min) 24
[2024-04-08] MEDS: FUROsemide 10 mg/mL SDV 2mL 20 MG IVP ×2 (10:01→21:11)
[2024-04-08] MEDS: tamsulosin 0.4 mg Capsule PO ×2 (10:02→17:18)
[2024-04-08] MEDS: sennosides-docusate Tablet 1 TAB PO (10:02)
[2024-04-08] MEDS: finasteride 5 mg Tablet PO (10:02)
[2024-04-08] MEDS: potassium chloride ER 20 mEq Tablet PO (10:02)
[2024-04-08] MEDS: memantine 5 mg tablet 10 MG PO ×2 (10:02→17:16)
[2024-04-08] MEDS: metoprolol tartrate 25 mg Tablet 12.5 MG PO ×2 (10:03→17:17)
[2024-04-08] MEDS: trazodone 50 mg Tablet PO ×2 (10:03→21:11)
[2024-04-08] MEDS: predniSONE 5 mg Tablet PO ×2 (10:03→17:18)
--- NOTE | 2024-04-08 10:55 | PC.NURSE ---
received from cardiac mobile lab technician at 0920 via bed.report received.pt is awake and alert and oriented x 4.denies pain at present.right wrist with tr band on and inflated.right hand is warm to touch and with brisk capillary refill.no hematoma noted.palpable radial pulse noted distal to tr band.right groin with femoral arterial sheath intact to pressurized system.drsg is dry and intact.no hematoma noted.right leg is warm to touch and with brisk capillary refill.palpable dp pulse noted.pt and daughter instructed in activity restrictions s/p radial and femoral artery procedures...and instructed to notify staff for any bleeding,pain,sob,numbness..or for any concerns at all.pt and daughter verb understanding of instructions
[2024-04-08] MEDS: HYDROcodone-acetaminophen 5-325 mg Tablet 1 TAB PO ×2 (11:06→17:16)
--- NOTE | 2024-04-08 13:50 | PC.SOCIAL ---
IMM Update pg 2 of IMM Updated and reviewed w/ patient. Copy provided and copy dated, initialed and placed in chart.
[2024-04-08 14:45] LABS: Partial Thromboplastin Time 190.7 SECONDS (23.9-36.7)
[2024-04-08 16:54] LABS: Partial Thromboplastin Time 26.7 SECONDS (23.9-36.7)
--- NOTE | 2024-04-08 19:28 | PC.NURSE ---
tr band slowly deflated and eventually removed at 1500.no hematoma noted.site dressed with 2x2 gauze and secured with biocclusive drsg.right femoral arterial sheath pulled at 1805 (delay due to prolonged ptt).manual pressure held x 20 min.vss through-out procedure.pt tolerated well.right leg remained warm to touch and with brisk capillary refill.palpable dp pulse noted.no hematoma formation noted.site dressed with 2x2 gauze and secured with biocclusive drsg.pt instructed in activity restrictions...and instructed to notify staff for any bleeding,pain,sob..or for any concerns at all.pt verb understanding of instructions
--- NOTE | 2024-04-08 19:49 | P.PN_ITS ---
Subjective 2 Subjective: Patient underwent a cardiac catheterization today. He was found to have a high- grade lesion at the proximal segment of the PDA branch of the right coronary artery. PCI was performed on this lesion. Medications: Medication Review Details: Current Medications Acetaminophen (Acetaminophen 325 Mg Tablet) 650 mg PO Q6H PRN PRN Reason: Mild/Mod Pain Or Temp >/= 101 Acetaminophen (Acetaminophen 325 Mg Tablet) 650 mg PO Q6H PRN PRN Reason: MILD PAIN Hydrocodone Bitart/Acetaminophen (Hydrocodone-Acetaminophen 5-325 Mg Tablet) 1 tab PO Q6H PRN PRN Reason: pain Last Admin: 04/08/24 17:16 Dose: 1 tab Al Hydrox/Mg Hydrox/Simethicone (Arvm-Eyj-Certisoca-Iveth 30 Ml Udc) 30 ml PO Q15M PRN PRN Reason: INDIGESTION Alprazolam (Alprazolam 0.5 Mg Tablet) 0.25 mg PO TID PRN PRN Reason: ANXIETY Aspirin (Aspirin 81 Mg Ec Tablet) 81 mg PO DAILY [facility] Atorvastatin Calcium (Atorvastatin 40 Mg Tablet) 40 mg PO BEDTIME [facility] Last Admin: 04/07/24 19:55 Dose: 40 mg Atropine Sulfate (Atropine 1 Mg/Ml Sdv 1 Ml) 0.5 mg IVP PRN PRN PRN Reason: Symptomatic bradycardia Clopidogrel Bisulfate (Clopidogrel 75 Mg Tablet) 75 mg PO DAILY [facility] Enoxaparin Sodium (Enoxaparin 40 Mg/0.4 Ml Syringe) 40 mg SUBCUT Q24H [facility] Last Admin: 04/08/24 09:53 Dose: Not Given Fentanyl (Fentanyl 50 Mcg/Ml Inj 2ml) 50 mcg IVP PRN PRN PRN Reason: PAIN Finasteride (Finasteride 5 Mg Tablet) 5 mg PO DAILY [facility] Last Admin: 04/08/24 10:02 Dose: 5 mg Furosemide (Furosemide 10 Mg/Ml Sdv 2ml) 20 mg IVP Q12H [facility] Last Admin: 04/08/24 10:01 Dose: 20 mg Sodium Chloride (Sodium Chloride 0.9%) 1,000 mls @ 50 mls/hr IV .Q20H ONE Stop: 04/09/24 01:59 Last Admin: 04/08/24 05:00 Dose: 50 mls/hr Sodium Chloride (Sodium Chloride 0.45%) 1,000 mls @ 100 mls/hr IV .Q10H [facility] Levothyroxine Sodium (Levothyroxine 75 Mcg Tablet) 75 mcg PO QAM [facility] Last Admin: 04/08/24 04:59 Dose: 75 mcg Magnesium Hydroxide (Magnesium Hydroxide 30 Ml Udc) 30 ml PO BID PRN PRN Reason: CONSTIPATION Last Admin: 04/07/24 12:03 Dose: 30 ml Magnesium Hydroxide (Magnesium Hydroxide 30 Ml Udc) 30 ml PO DAILY PRN PRN Reason: CONSTIPATION Memantine (Memantine 5 Mg Tablet) 10 mg PO BID [facility] Last Admin: 04/08/24 17:16 Dose: 10 mg Metoprolol Tartrate (Metoprolol Tartrate 25 Mg Tablet) 12.5 mg PO BID [facility] Last Admin: 04/08/24 17:17 Dose: 12.5 mg Naloxone HCl (Naloxone 0.4 Mg/Ml Sdv) 0.1 mg IVP Q2M PRN PRN Reason: RESPIRATORY RATE < 8/MIN Nitroglycerin (Nitroglycerin 0.4 Mg Sublingual Tablet) 0.4 mg SUBLINGUAL Q5M PRN PRN Reason: CHEST PAIN Non-Formulary Medication (Non-Form) 0 each PO DAILY [facility] Last Admin: 04/08/24 10:06 Dose: Not Given Ondansetron HCl (Ondansetron 2 Mg/Ml Sdv 2 Ml) 4 mg IVP Q6H PRN PRN Reason: NAUSEA AND VOMITING Potassium Chloride (Potassium Chloride Er 20 Meq Tablet) 20 meq PO DAILY [facility] Last Admin: 04/08/24 10:02 Dose: 20 meq Prednisone (Prednisone 5 Mg Tablet) 5 mg PO BID [facility] Last Admin: 04/08/24 17:18 Dose: 5 mg Senna/Docusate Sodium (Sennosides-Docusate Tablet) 1 tab PO DAILY [facility] Last Admin: 04/08/24 10:02 Dose: 1 tab Tamsulosin HCl (Tamsulosin 0.4 Mg Capsule) 0.4 mg PO BID [facility] Last Admin: 04/08/24 17:18 Dose: 0.4 mg Temazepam (Temazepam 15 Mg Capsule) 15 mg PO BEDTIME PRN PRN Reason: INSOMNIA Trazodone HCl (Trazodone 50 Mg Tablet) 50 mg PO Q12H [facility] Last Admin: 04/08/24 10:03 Dose: 50 mg Vitals/I&O/Wt Last Vital Signs Temp 98.0 F 04/08/24 16:00 Pulse 78 04/08/24 19:44 Resp 12 04/08/24 19:44 BP 101/59 04/08/24 19:44 Pulse Ox 90 04/08/24 19:44 O2 Del Method Room Air 04/08/24 19:44 04/08/24 04/08/24 04/08/24 06:59 14:59 22:59 Output Total 1110 / 1110 710 / 1820 Balance -1110 / -1110 -710 / -1820 Weight last 48 hrs Weight 151 lb 7 oz Weight 151 lb 7 oz Physical Exam 2 Narrative: GENERAL: The patient is alert and oriented times three. Not in any acute distress. HEENT: No significant pallor, icterus or lymphadenopathy.Oral cavity: There are no mucous membrane lesions. NECK: Trachea appears to be central. No masses noted. No JVD or thyromegaly appreciated. RESPIRATORY: Chest is symmetrical. No intercostals muscle retraction or any accessory muscle activation. There is no chest wall tenderness. Breath sounds are heard bilaterally. No rales or rhonchi heard. No evidence of any consolidation. BREASTS: Deferred. HEART: The heart sounds are normal. No S3 or S4. Short systolic murmur in the left frontal border. No diastolic murmurs.. No pericardial rub ABDOMEN: No vessel pulsations or distention. No tenderness. No organomegaly appreciated. Bowel sounds are normally heard. : Deferred. RECTAL: Deferred. LYMPHATIC: No lymphadenopathy noted in the neck. EXTREMITIES: Trace edema with no cyanosis MUSCULOSKELETAL: No acute joint deformities or swelling SKIN: There are no significant rashes or ecchymosis NEUROPSYCHIATRIC: The patient is alert and oriented x3. Appears to be in a good mood. No tremors or rigidity noted. Data 04/08/24 03:20 04/08/24 03:20 Other Labs: Laboratory Last Values WBC 5.55 10^3/uL (3.29-11.43) 04/08/24 03:20 RBC 3.92 10^6/uL (3.85-5.65) 04/08/24 03:20 Hgb 11.90 g/dL (11.27-16.99) 04/08/24 03:20 Hct 37.9 % (37-53) 04/08/24 03:20 MCV 96.7 fl (82-101) 04/08/24 03:20 MCH 30.4 pg (27-33) 04/08/24 03:20 MCHC 31.4 g/dL (30-55) 04/08/24 03:20 RDW 12.9 % (12.1-15.1) 04/08/24 03:20 Plt Count 214 10^3/cmm (157-399) 04/08/24 03:20 MPV 8.3 fL (7.4-10.4) 04/08/24 03:20 Neut % (Auto) 69.7 % 04/08/24 03:20 Lymph % (Auto) 18.4 % 04/08/24 03:20 [place] % (Auto) 9.7 % 04/08/24 03:20 Eos % (Auto) 0.9 % 04/08/24 03:20 Baso % (Auto) 0.4 % 04/08/24 03:20 Neut # (Auto) 3.87 10^3/uL (1.8-7.7) 04/08/24 03:20 Lymph # (Auto) 1.0 10^3/uL (0.8-4.8) 04/08/24 03:20 [place] # (Auto) 0.5 10^3/uL (0.2-0.9) 04/08/24 03:20 Eos # (Auto) 0.1 10^3/uL (0.0-0.8) 04/08/24 03:20 Baso # (Auto) 0.0 10^3/uL (0.0-0.1) 04/08/24 03:20 Nucleated RBC % (auto) 0 % 04/08/24 03:20 Nucleated RBCs # 0.0 /100WBC 04/08/24 03:20 PT 12.90 SECONDS (12.1-14.9) 04/08/24 03:20 INR 0.94 (0.8-1.2) 04/08/24 03:20 APTT 26.7 SECONDS (23.9-36.7) D 04/08/24 16:09 Sodium 140 mmol/L (136-145) 04/08/24 03:20 Potassium 4.1 mmol/L (3.5-5.1) 04/08/24 03:20 Chloride 101 mmol/L (98-107) 04/08/24 03:20 Carbon Dioxide 31 mmol/L (22-29) H 04/08/24 03:20 Anion Gap 12.1 (5-19) 04/08/24 03:20 BUN 26 mg/dL (8-23) H 04/08/24 03:20 Creatinine 1.1 mg/dL (0.7-1.2) 04/08/24 03:20 GFR Calculation Not Reportable 04/08/24 03:20 Glucose 145 mg/dL (65-115) H 04/08/24 03:20 Calculated Osmolality 297 mOsm/kg (285-295) H 04/08/24 03:20 Calcium 8.4 mg/dL (8.5-10.5) L 04/08/24 03:20 Magnesium 2.3 mg/dL (1.7-2.3) 04/07/24 03:30 Total Bilirubin 0.4 mg/dL (0.15-1.2) 04/07/24 03:30 AST 14 U/L (0-40) 04/07/24 03:30 ALT 12 U/L (0-41) 04/07/24 03:30 Alkaline Phosphatase 40 U/L (40-130) 04/07/24 03:30 Troponin T Baseline 27 ng/L (0-15) H 04/06/24 06:53 Troponin T 120 Minute 23.10 ng/L (0-15) H 04/06/24 08:53 Delta Troponin T -3.90 ABS# (0-10) L 04/06/24 08:53 Troponin T Hi Sens 6Hr 20.90 ng/L (0-15) H 04/06/24 12:57 Troponin T Hi Sens 6Hr Delta -6.10 ng/L (0-12) L 04/06/24 12:57 NT-Pro-B Natriuret Pep 546 pg/mL (0-450) H 04/06/24 06:53 Total Protein 5.2 g/dL (6.6-8.7) L 04/07/24 03:30 Albumin 3.4 g/dL (3.5-5.2) L 04/07/24 03:30 Globulin 1.8 g/dL (1.3-4.6) 04/07/24 03:30 Triglycerides 114 mg/dL (0-150) 04/07/24 03:30 Cholesterol 221 mg/dL (0-200) H 04/07/24 03:30 LDL Cholesterol, Calc 152 mg/dL (50-129) H 04/07/24 03:30 HDL Cholesterol 46 mg/dL (60-100) L 04/07/24 03:30 LDL/HDL Ratio 3.30 RATIO (0.00-3.22) H 04/07/24 03:30 Cholesterol/HDL Ratio 4.80 mg/dL (1.0-5.00) 04/07/24 03:30 Vitamin B12 477 pg/mL (232-1245) 04/06/24 06:53 TSH 4.19 uIU/mL (0.27-4.20) 04/06/24 06:53 A&P Assessment and plan (1) Atherosclerotic heart disease of [place] coronary artery with other forms of angina pectoris: Patient status post PCI of the PDA lesion. Mild to moderate diffuse disease in the other vessels. Will continue on the Plavix , aspirin, statin and other symptomatic measures. (2) Congestive heart failure: Patient has features of acute on chronic systolic heart failure. He will be carefully treated with diuretics and other symptomatic measures. Patient is responding to the current measures Qualifiers: Heart failure type: other Qualified Code(s): I50.9 - Heart failure, unspecified (3) Cardiomyopathy: Most likely he may have ischemic cardiomyopathy. May consider starting him on low-dose of ARB, if the blood pressure tolerates Qualifiers: Cardiomyopathy type: ischemic Qualified Code(s): I25.5 - Ischemic cardiomyopathy (4) Metastatic adenocarcinoma to prostate: This is being followed by the oncology service. Plan Continue on the current medications as mentioned above. If the patient continues to remain stable, may be discharged home tomorrow. Will repeat the BMP in the morning Attestations 2 Medical Necessity Statement*: Patient requires continued hospital stay for close monitoring and further management Coding Level of Care Code 73530 Diagnoses Atherosclerotic heart disease of [place] coronary artery with other forms of angina pectoris I25.118 Other congestive heart failure I50.9 Heart failure type: other Ischemic cardiomyopathy I25.5 Cardiomyopathy type: ischemic Metastatic adenocarcinoma to prostate C79.82
[2024-04-08] MEDS: atorvastatin 40 mg Tablet PO (21:11)
[2024-04-08] MEDS: sodium chloride 0.45% 1,000 ML 100 ML IV (21:14)
[2024-04-09] VITALS (7 sets, daily range): BP systolic 101–110; BP diastolic 65–74; PULSE 60–70; RESP 11–22; TEMP 36.8–37.1; O2SAT 91–93
[2024-04-09 04:51] LABS: Basophils % 0.2 %; Eosinophils % 0.2 %; Hematocrit 35.3 % (37-53); Lymphocytes # 0.7 10^3/uL (0.8-4.8); Lymphocytes % 11.8 %; Mean Corpuscular HGB Conc 32.3 g/dL (30-55); Mean Corpuscular Hemoglobin 31.8 pg (27-33); Mean Corpuscular Volume 98.3 fl (82-101); Mean Platelet Volume 8.5 fL (7.4-10.4); Monocytes # 0.5 10^3/uL (0.2-0.9); Monocytes % 8.4 %; Neutrophils # 4.62 10^3/uL (1.8-7.7); Neutrophils % 79.1 %; Nucleated Red Blood Cells % 0 %; Platelet Count 178 10^3/cmm (157-399); Red Blood Count 3.59 10^6/uL (3.85-5.65); Red Cell Distribution Width 12.9 % (12.1-15.1); White Blood Count 5.84 10^3/uL (3.29-11.43)
[2024-04-09 05:19] LABS: Blood Urea Nitrogen 19 mg/dL (8-23); Calcium 7.9 mg/dL (8.5-10.5); Carbon Dioxide 30 mmol/L (22-29); Chloride 100 mmol/L (98-107); Creatinine Clr Calc Pharmacy 49.3173; Glucose 155 mg/dL (65-115); Osmolality Calculated 287 mOsm/kg (285-295); Sodium 136 mmol/L (136-145)
[2024-04-09] MEDS: levothyroxine 75 mcg Tablet PO (05:55)
[2024-04-09] MEDS: clopidogrel 75 mg Tablet PO (07:34)
[2024-04-09] MEDS: enoxaparin 40 mg/0.4 mL Syringe SUBCUT (07:34)
[2024-04-09] MEDS: tamsulosin 0.4 mg Capsule PO (07:34)
[2024-04-09] MEDS: aspirin 81 mg EC Tablet PO (07:35)
[2024-04-09] MEDS: trazodone 50 mg Tablet PO (07:35)
[2024-04-09] MEDS: potassium chloride ER 20 mEq Tablet PO (07:35)
[2024-04-09] MEDS: memantine 5 mg tablet 10 MG PO (07:35)
[2024-04-09] MEDS: finasteride 5 mg Tablet PO (07:35)
[2024-04-09] MEDS: metoprolol tartrate 25 mg Tablet 12.5 MG PO (07:35)
[2024-04-09] MEDS: sennosides-docusate Tablet 1 TAB PO (07:35)
[2024-04-09] MEDS: predniSONE 5 mg Tablet PO (07:35)
[2024-04-09] MEDS: FUROsemide 10 mg/mL SDV 2mL 20 MG IVP (07:36)
--- NOTE | 2024-04-09 08:23 | P.PN_ITS ---
Subjective 2 Subjective: Patient had the categorization yesterday followed by PCI of the proximal PDA lesion and the obtuse marginal artery lesions. The patient had an uneventful postprocedure course. Currently has no chest pain or shortness of breath. No new arrhythmias are noted on the monitor. Medications: Medication Review Details: Current Medications Acetaminophen (Acetaminophen 325 Mg Tablet) 650 mg PO Q6H PRN PRN Reason: Mild/Mod Pain Or Temp >/= 101 Acetaminophen (Acetaminophen 325 Mg Tablet) 650 mg PO Q6H PRN PRN Reason: MILD PAIN Hydrocodone Bitart/Acetaminophen (Hydrocodone-Acetaminophen 5-325 Mg Tablet) 1 tab PO Q6H PRN PRN Reason: pain Last Admin: 04/08/24 17:16 Dose: 1 tab Al Hydrox/Mg Hydrox/Simethicone (Nqoo-Heg-Uwmhyirgv-Iveth 30 Ml Udc) 30 ml PO Q15M PRN PRN Reason: INDIGESTION Alprazolam (Alprazolam 0.5 Mg Tablet) 0.25 mg PO TID PRN PRN Reason: ANXIETY Aspirin (Aspirin 81 Mg Ec Tablet) 81 mg PO DAILY [facility] Last Admin: 04/09/24 07:35 Dose: 81 mg Atorvastatin Calcium (Atorvastatin 40 Mg Tablet) 40 mg PO BEDTIME [facility] Last Admin: 04/08/24 21:11 Dose: 40 mg Atropine Sulfate (Atropine 1 Mg/Ml Sdv 1 Ml) 0.5 mg IVP PRN PRN PRN Reason: Symptomatic bradycardia Clopidogrel Bisulfate (Clopidogrel 75 Mg Tablet) 75 mg PO DAILY [facility] Last Admin: 04/09/24 07:34 Dose: 75 mg Enoxaparin Sodium (Enoxaparin 40 Mg/0.4 Ml Syringe) 40 mg SUBCUT Q24H [facility] Last Admin: 04/09/24 07:34 Dose: 40 mg Fentanyl (Fentanyl 50 Mcg/Ml Inj 2ml) 50 mcg IVP PRN PRN PRN Reason: PAIN Finasteride (Finasteride 5 Mg Tablet) 5 mg PO DAILY [facility] Last Admin: 04/09/24 07:35 Dose: 5 mg Furosemide (Furosemide 10 Mg/Ml Sdv 2ml) 20 mg IVP Q12H [facility] Last Admin: 04/09/24 07:36 Dose: 20 mg Sodium Chloride (Sodium Chloride 0.45%) 1,000 mls @ 100 mls/hr IV .Q10H [facility] Last Infusion: 04/09/24 07:47 Dose: 100 mls/hr Levothyroxine Sodium (Levothyroxine 75 Mcg Tablet) 75 mcg PO QAM [facility] Last Admin: 04/09/24 05:55 Dose: 75 mcg Magnesium Hydroxide (Magnesium Hydroxide 30 Ml Udc) 30 ml PO BID PRN PRN Reason: CONSTIPATION Last Admin: 04/07/24 12:03 Dose: 30 ml Magnesium Hydroxide (Magnesium Hydroxide 30 Ml Udc) 30 ml PO DAILY PRN PRN Reason: CONSTIPATION Memantine (Memantine 5 Mg Tablet) 10 mg PO BID [facility] Last Admin: 04/09/24 07:35 Dose: 10 mg Metoprolol Tartrate (Metoprolol Tartrate 25 Mg Tablet) 12.5 mg PO BID [facility] Last Admin: 04/09/24 07:35 Dose: 12.5 mg Naloxone HCl (Naloxone 0.4 Mg/Ml Sdv) 0.1 mg IVP Q2M PRN PRN Reason: RESPIRATORY RATE < 8/MIN Nitroglycerin (Nitroglycerin 0.4 Mg Sublingual Tablet) 0.4 mg SUBLINGUAL Q5M PRN PRN Reason: CHEST PAIN Non-Formulary Medication (Non-Form) 0 each PO DAILY [facility] Last Admin: 04/09/24 07:36 Dose: Not Given Ondansetron HCl (Ondansetron 2 Mg/Ml Sdv 2 Ml) 4 mg IVP Q6H PRN PRN Reason: NAUSEA AND VOMITING Potassium Chloride (Potassium Chloride Er 20 Meq Tablet) 20 meq PO DAILY [facility] Last Admin: 04/09/24 07:35 Dose: 20 meq Prednisone (Prednisone 5 Mg Tablet) 5 mg PO BID [facility] Last Admin: 04/09/24 07:35 Dose: 5 mg Senna/Docusate Sodium (Sennosides-Docusate Tablet) 1 tab PO DAILY [facility] Last Admin: 04/09/24 07:35 Dose: 1 tab Tamsulosin HCl (Tamsulosin 0.4 Mg Capsule) 0.4 mg PO BID [facility] Last Admin: 04/09/24 07:34 Dose: 0.4 mg Temazepam (Temazepam 15 Mg Capsule) 15 mg PO BEDTIME PRN PRN Reason: INSOMNIA Trazodone HCl (Trazodone 50 Mg Tablet) 50 mg PO Q12H [facility] Last Admin: 04/09/24 07:35 Dose: 50 mg Vitals/I&O/Wt Last Vital Signs Temp 98.6 F 04/09/24 07:58 Pulse 60 04/09/24 07:58 Resp 22 H 04/09/24 07:58 BP 106/73 04/09/24 07:58 Pulse Ox 93 04/09/24 07:58 O2 Del Method Room Air 04/09/24 07:58 04/08/24 04/09/24 04/09/24 22:59 06:59 14:59 Intake Total 1400 / 1400 500 / 500 Output Total 710 / 1820 1400 / 3220 Balance -710 / -1820 0 / -1820 500 / 500 Weight last 48 hrs Weight 151 lb 7 oz Weight 151 lb 7 oz Physical Exam 2 Narrative: GENERAL: The patient is alert and oriented times three. Not in any acute distress. HEENT: No significant pallor, icterus or lymphadenopathy.Oral cavity: There are no mucous membrane lesions. NECK: Trachea appears to be central. No masses noted. No JVD or thyromegaly appreciated. RESPIRATORY: Chest is symmetrical. No intercostals muscle retraction or any accessory muscle activation. There is no chest wall tenderness. Breath sounds are heard bilaterally. No rales or rhonchi heard. No evidence of any consolidation. BREASTS: Deferred. HEART: The heart sounds are normal. No S3 or S4. Short systolic murmur in the left frontal border. No diastolic murmurs.. No pericardial rub ABDOMEN: No vessel pulsations or distention. No tenderness. No organomegaly appreciated. Bowel sounds are normally heard. : Deferred. RECTAL: Deferred. LYMPHATIC: No lymphadenopathy noted in the neck. EXTREMITIES: No hematoma bleeding from the right groin. MUSCULOSKELETAL: No acute joint deformities or swelling SKIN: There are no significant rashes or ecchymosis NEUROPSYCHIATRIC: The patient is alert and oriented x3. Appears to be in a good mood. No tremors or rigidity noted. Data 04/09/24 04:22 04/09/24 04:22 Other Labs: Laboratory Last Values WBC 5.84 10^3/uL (3.29-11.43) 04/09/24 04:22 RBC 3.59 10^6/uL (3.85-5.65) L 04/09/24 04:22 Hgb 11.40 g/dL (11.27-16.99) 04/09/24 04:22 Hct 35.3 % (37-53) L 04/09/24 04:22 MCV 98.3 fl (82-101) 04/09/24 04:22 MCH 31.8 pg (27-33) 04/09/24 04:22 MCHC 32.3 g/dL (30-55) 04/09/24 04:22 RDW 12.9 % (12.1-15.1) 04/09/24 04:22 Plt Count 178 10^3/cmm (157-399) 04/09/24 04:22 MPV 8.5 fL (7.4-10.4) 04/09/24 04:22 Neut % (Auto) 79.1 % 04/09/24 04:22 Lymph % (Auto) 11.8 % 04/09/24 04:22 [place] % (Auto) 8.4 % 04/09/24 04:22 Eos % (Auto) 0.2 % 04/09/24 04:22 Baso % (Auto) 0.2 % 04/09/24 04:22 Neut # (Auto) 4.62 10^3/uL (1.8-7.7) 04/09/24 04:22 Lymph # (Auto) 0.7 10^3/uL (0.8-4.8) L 04/09/24 04:22 [place] # (Auto) 0.5 10^3/uL (0.2-0.9) 04/09/24 04:22 Eos # (Auto) 0.0 10^3/uL (0.0-0.8) 04/09/24 04:22 Baso # (Auto) 0.0 10^3/uL (0.0-0.1) 04/09/24 04:22 Nucleated RBC % (auto) 0 % 04/09/24 04:22 Nucleated RBCs # 0.0 /100WBC 04/09/24 04:22 PT 12.90 SECONDS (12.1-14.9) 04/08/24 03:20 INR 0.94 (0.8-1.2) 04/08/24 03:20 APTT 26.7 SECONDS (23.9-36.7) D 04/08/24 16:09 Sodium 136 mmol/L (136-145) 04/09/24 04:22 Potassium 4.0 mmol/L (3.5-5.1) 04/09/24 04:22 Chloride 100 mmol/L (98-107) 04/09/24 04:22 Carbon Dioxide 30 mmol/L (22-29) H 04/09/24 04:22 Anion Gap 10.0 (5-19) 04/09/24 04:22 BUN 19 mg/dL (8-23) 04/09/24 04:22 Creatinine 1.0 mg/dL (0.7-1.2) 04/09/24 04:22 GFR Calculation Not Reportable 04/09/24 04:22 Glucose 155 mg/dL (65-115) H 04/09/24 04:22 Calculated Osmolality 287 mOsm/kg (285-295) 04/09/24 04:22 Calcium 7.9 mg/dL (8.5-10.5) L 04/09/24 04:22 Magnesium 2.3 mg/dL (1.7-2.3) 04/07/24 03:30 Total Bilirubin 0.4 mg/dL (0.15-1.2) 04/07/24 03:30 AST 14 U/L (0-40) 04/07/24 03:30 ALT 12 U/L (0-41) 04/07/24 03:30 Alkaline Phosphatase 40 U/L (40-130) 04/07/24 03:30 Troponin T Baseline 27 ng/L (0-15) H 04/06/24 06:53 Troponin T 120 Minute 23.10 ng/L (0-15) H 04/06/24 08:53 Delta Troponin T -3.90 ABS# (0-10) L 04/06/24 08:53 Troponin T Hi Sens 6Hr 20.90 ng/L (0-15) H 04/06/24 12:57 Troponin T Hi Sens 6Hr Delta -6.10 ng/L (0-12) L 04/06/24 12:57 NT-Pro-B Natriuret Pep 546 pg/mL (0-450) H 04/06/24 06:53 Total Protein 5.2 g/dL (6.6-8.7) L 04/07/24 03:30 Albumin 3.4 g/dL (3.5-5.2) L 04/07/24 03:30 Globulin 1.8 g/dL (1.3-4.6) 04/07/24 03:30 Triglycerides 114 mg/dL (0-150) 04/07/24 03:30 Cholesterol 221 mg/dL (0-200) H 04/07/24 03:30 LDL Cholesterol, Calc 152 mg/dL (50-129) H 04/07/24 03:30 HDL Cholesterol 46 mg/dL (60-100) L 04/07/24 03:30 LDL/HDL Ratio 3.30 RATIO (0.00-3.22) H 04/07/24 03:30 Cholesterol/HDL Ratio 4.80 mg/dL (1.0-5.00) 04/07/24 03:30 Vitamin B12 477 pg/mL (232-1245) 04/06/24 06:53 TSH 4.19 uIU/mL (0.27-4.20) 04/06/24 06:53 A&P Assessment and plan (1) Atherosclerotic heart disease of [place] coronary artery with other forms of angina pectoris: Patient had a PCI of the PDA and the OM lesions. Currently seems to be remaining stable. Will continue on the Plavix and aspirin along with other medications. (2) Congestive heart failure: The patient may be switched to p.o. Lasix 20 mg daily with a potassium 8 mg p.o. daily. Patient's daughter understands how to adjust the dose according to his needs Qualifiers: Heart failure type: other Qualified Code(s): I50.9 - Heart failure, unspecified (3) Cardiomyopathy: Consider starting on ARB as an outpatient. May continue on the current medication for the time being. Qualifiers: Cardiomyopathy type: ischemic Qualified Code(s): I25.5 - Ischemic cardiomyopathy (4) Metastatic adenocarcinoma to prostate: This is being followed by the oncology service. Plan If the patient continues to remain stable, may be discharged home from a cardiac standpoint. May be kept on the aspirin, Plavix, statin, beta-erlin and Lasix If he continues to remain stable, may be discharged home from a cardiac standpoint Appointment the [facility] to be seen with nurse practitioner in 1 week. Appoint with me in the office in 1 month Attestations 2 Medical Necessity Statement*: Possible discharge home today Coding Level of Care Code Acute Code for [employer] [facility] Diagnoses Atherosclerotic heart disease of [place] coronary artery with other forms of angina pectoris I25.118 Other congestive heart failure I50.9 Heart failure type: other Ischemic cardiomyopathy I25.5 Cardiomyopathy type: ischemic Metastatic adenocarcinoma to prostate C79.82
--- NOTE | 2024-04-09 12:37 | P.DS_ITS ---
Discharge Providers Date of Admission: 04/07/24 12:06 Date of Discharge: April 09, 2024 Attending Provider at Admission: Hal Poole MD Attending Provider at Discharge: Sushila Armstrong MD Primary Care Provider: KERWIN Irwin Diagnoses at Discharge Discharge Diagnosis (1) Atherosclerotic heart disease of [place] coronary artery with other forms of angina pectoris: Status: Acute (2) Congestive heart failure: Status: Acute Qualifiers: Heart failure type: other Qualified Code(s): I50.9 - Heart failure, unspecified (3) Cardiomyopathy: Status: Acute Qualifiers: Cardiomyopathy type: ischemic Qualified Code(s): I25.5 - Ischemic cardiomyopathy (4) Metastatic adenocarcinoma to prostate: Status: Acute Reason for Visit Reason for Visit: SOB Hospital Course Hospital Course Patient presented with chest pain and underwent cardiac catheterization and had PCI of proximal PDA lesion and obtuse marginal artery lesions. Uneventful postprocedure course. Will be discharged home with aspirin atorvastatin and Plavix at this time. Appropriate follow-up appointments given. Discharged home in stable condition at this time. Discussed with Dr. Childress at time of discharge. Physical Exam Narrative: General Exam no distress Neck is supple no lymphadenopathy thyromegaly Cardiovascular regular rate and rhythm with 2/6 systolic murmur Lungs clear no wheezing or crackles Abdomen soft nontender positive bowel sounds. No obvious organomegaly Extremities no cyanosis clubbing edema, cap refill brisk. She has noted Discharge Data Studies Completed and Pending Completed Studies During Hospitalization Category Date Time Status XR chest 1V portable [id number] Stat Exams 04/06/24 06:42 Completed Pending at discharge Category Date Time Status [facility] request for service Routine Exams 04/08/24 06:00 Taken Radiology Impressions Chest X-Ray 04/06/24 06:42 IMPRESSION: 1. No acute process identified. Laboratory Results WBC 5.84 10^3/uL (3.29-11.43) 04/09/24 04:22 RBC 3.59 10^6/uL (3.85-5.65) L 04/09/24 04:22 Hgb 11.40 g/dL (11.27-16.99) 04/09/24 04:22 Hct 35.3 % (37-53) L 04/09/24 04:22 MCV 98.3 fl (82-101) 04/09/24 04:22 MCH 31.8 pg (27-33) 04/09/24 04:22 MCHC 32.3 g/dL (30-55) 04/09/24 04:22 RDW 12.9 % (12.1-15.1) 04/09/24 04:22 Plt Count 178 10^3/cmm (157-399) 04/09/24 04:22 MPV 8.5 fL (7.4-10.4) 04/09/24 04:22 Neut % (Auto) 79.1 % 04/09/24 04:22 Lymph % (Auto) 11.8 % 04/09/24 04:22 [place] % (Auto) 8.4 % 04/09/24 04:22 Eos % (Auto) 0.2 % 04/09/24 04:22 Baso % (Auto) 0.2 % 04/09/24 04:22 Neut # (Auto) 4.62 10^3/uL (1.8-7.7) 04/09/24 04:22 Lymph # (Auto) 0.7 10^3/uL (0.8-4.8) L 04/09/24 04:22 [place] # (Auto) 0.5 10^3/uL (0.2-0.9) 04/09/24 04:22 Eos # (Auto) 0.0 10^3/uL (0.0-0.8) 04/09/24 04:22 Baso # (Auto) 0.0 10^3/uL (0.0-0.1) 04/09/24 04:22 Nucleated RBC % (auto) 0 % 04/09/24 04:22 Nucleated RBCs # 0.0 /100WBC 04/09/24 04:22 PT 12.90 SECONDS (12.1-14.9) 04/08/24 03:20 INR 0.94 (0.8-1.2) 04/08/24 03:20 APTT 26.7 SECONDS (23.9-36.7) D 04/08/24 16:09 Sodium 136 mmol/L (136-145) 04/09/24 04:22 Potassium 4.0 mmol/L (3.5-5.1) 04/09/24 04:22 Chloride 100 mmol/L (98-107) 04/09/24 04:22 Carbon Dioxide 30 mmol/L (22-29) H 04/09/24 04:22 Anion Gap 10.0 (5-19) 04/09/24 04:22 BUN 19 mg/dL (8-23) 04/09/24 04:22 Creatinine 1.0 mg/dL (0.7-1.2) 04/09/24 04:22 GFR Calculation Not Reportable 04/09/24 04:22 Glucose 155 mg/dL (65-115) H 04/09/24 04:22 Calculated Osmolality 287 mOsm/kg (285-295) 04/09/24 04:22 Calcium 7.9 mg/dL (8.5-10.5) L 04/09/24 04:22 Magnesium 2.3 mg/dL (1.7-2.3) 04/07/24 03:30 Total Bilirubin 0.4 mg/dL (0.15-1.2) 04/07/24 03:30 AST 14 U/L (0-40) 04/07/24 03:30 ALT 12 U/L (0-41) 04/07/24 03:30 Alkaline Phosphatase 40 U/L (40-130) 04/07/24 03:30 Troponin T Baseline 27 ng/L (0-15) H 04/06/24 06:53 Troponin T 120 Minute 23.10 ng/L (0-15) H 04/06/24 08:53 Delta Troponin T -3.90 ABS# (0-10) L 04/06/24 08:53 Troponin T Hi Sens 6Hr 20.90 ng/L (0-15) H 04/06/24 12:57 Troponin T Hi Sens 6Hr Delta -6.10 ng/L (0-12) L 04/06/24 12:57 NT-Pro-B Natriuret Pep 546 pg/mL (0-450) H 04/06/24 06:53 Total Protein 5.2 g/dL (6.6-8.7) L 04/07/24 03:30 Albumin 3.4 g/dL (3.5-5.2) L 04/07/24 03:30 Globulin 1.8 g/dL (1.3-4.6) 04/07/24 03:30 Triglycerides 114 mg/dL (0-150) 04/07/24 03:30 Cholesterol 221 mg/dL (0-200) H 04/07/24 03:30 LDL Cholesterol, Calc 152 mg/dL (50-129) H 04/07/24 03:30 HDL Cholesterol 46 mg/dL (60-100) L 04/07/24 03:30 LDL/HDL Ratio 3.30 RATIO (0.00-3.22) H 04/07/24 03:30 Cholesterol/HDL Ratio 4.80 mg/dL (1.0-5.00) 04/07/24 03:30 Vitamin B12 477 pg/mL (232-1245) 04/06/24 06:53 TSH 4.19 uIU/mL (0.27-4.20) 04/06/24 06:53 Vitals Last Vital Signs Temp 98.3 F 04/09/24 12:00 Pulse 60 04/09/24 07:58 Resp 22 H 04/09/24 07:58 BP 101/74 04/09/24 12:00 Pulse Ox 93 04/09/24 07:58 O2 Del Method Room Air 04/09/24 07:58 Discharge Plan Discharge Patient Disposition: Home Condition: Stable Prescriptions: New aspirin 81 mg Tablet,Delayed Release (Dr/Ec) 81 mg PO DAILY Qty: 30 0RF atorvastatin 40 mg Tablet 40 mg PO BEDTIME Qty: 30 0RF clopidogrel 75 mg Tablet 75 mg PO DAILY Qty: 30 0RF metoprolol succinate [Toprol XL] 25 mg tablet extended release 24 hr 12.5 mg PO DAILY Qty: 30 0RF Continued acetaminophen 500 mg capsule 1,000 mg PO BEDTIME PRN (Reason: Pain) trazodone 50 mg tablet 50 mg PO BID Qty: 180 0RF calcium carbonate-vitamin D3 [Calcium 600 + D(3)] 600 mg-10 mcg (400 unit) tablet 1 tab PO DAILY sennosides-docusate sodium 8.6-50 mg tablet 1 tab PO DAILY potassium chloride 10 mEq tablet extended release 10 meq PO DAILY Qty: 30 2RF memantine 10 mg tablet 10 mg PO BID Qty: 60 3RF prednisone 5 mg tablet 5 mg PO BID Qty: 180 1RF hydrocodone-acetaminophen 5-325 mg tablet 1 tab PO Q6H PRN (Reason: pain) 30 Days Qty: 120 0RF Multivitamin 50 Plus Tablet 1 tab PO DAILY levothyroxine 75 mcg tablet 75 mcg PO QAM tamsulosin 0.4 mg capsule 0.4 mg PO BID furosemide 20 mg tablet 20 mg PO QAM finasteride 5 mg tablet 5 mg PO DAILY abiraterone 250 mg tablet 1,000 mg PO DAILY Discharge Orders: Discharge Order (Routine); Ordered 04/09/24 Ordered By: Sushila Armstrong Referrals: Sharon Pérez, VENDING SERVICE TECHNICIAN [Nurse Practitioner] - (Sharon Pérez's Office has your information and will be calling you to schedule a follow up appointment. You can call them if you do not hear from them or if you have any questions or concerns. Thank you.) Tiff Salgado FNP [Primary Care Provider] - 04/15/24 9:20 am Discharge Diet: Cardiac Discharge Activity: Limit activity as instructed Patient Instructions: Metoprolol (By mouth) (Lopressor, Toprol XL), Aspirin (By mouth) (Vinny Extra Strength, Vinny Aspirin Children's,..., Atorvastatin (By mouth) (Lipitor, Atorvaliq), Clopidogrel (By mouth) (Plavix), Heart Failure (DC), Coronary Angioplasty (DC), CHF Stoplight, Opioid Safety, Post Angiogram Home Care Instructions Discharge Attestations Time Spent in Discharge Care*: greater than 30 min Status at Discharge: Cognitive status at discharge: cognitively intact , Behavioral status at discharge: cooperative , Quality Metrics Clinical Quality Measures [ No reported AMI, CVA or VTE this stay] Coding Level of Care Code Acute Code for [facility] Fwd Diagnoses Atherosclerotic heart disease of [place] coronary artery with other forms of angina pectoris I25.118 Other congestive heart failure I50.9 Heart failure type: other Ischemic cardiomyopathy I25.5 Cardiomyopathy type: ischemic Metastatic adenocarcinoma to prostate C79.82
--- NOTE | 2024-04-09 13:14 | PC.NURSE ---
Patient discharged to home. Instruction provided regarding site care, follow up needs and new medications. Both patient and daughter verbalized complete understanding. Patient denies pain or needs. No distress observed. Patient taken by wheelchair to private vehicle. All belongings sent with patient and daughter. New Rx transmitted to [facility] [place].
== END 2024-04-09 13:14 | disposition home or self-care (01) | DRG 322 ==
LOC: ER 06:50 → ER IP 09:35 → CSU 12:25
PROVIDERS: Internal Medicine Cardiovascular Disease; Nurse Practitioner Family; Admitting Provider Internal Medicine; Emergency Provider Family Medicine; PCP Nurse Practitioner Family; Visit Provider Internal Medicine
PROC: 027135Z Dilation of Coronary Artery, Two Arteries with Two Drug-eluting Intraluminal Devices, Percutaneous Approach (ICD-10-PCS; principal; 2024-04-08 07:00)
DX: I25.119 Atherosclerotic heart disease of native coronary artery with unspecified angina pectoris (principal); C79.51 Secondary malignant neoplasm of bone; C61 Malignant neoplasm of prostate; N40.1 Benign prostatic hyperplasia with lower urinary tract symptoms; F03.90 Unspecified dementia, unspecified severity, without behavioral disturbance, psychotic disturbance, mood disturbance, and anxiety; I50.9 Heart failure, unspecified; I25.5 Ischemic cardiomyopathy; Z95.0 Presence of cardiac pacemaker; Z79.52 Long term (current) use of systemic steroids; Z92.3 Personal history of irradiation; Z87.891 Personal history of nicotine dependence; Z92.21 Personal history of antineoplastic chemotherapy
CPT/HCPCS: 36415; 71045; 80048; 80053; 80061; 82607; 83735; 83880; 84443; 84484; 85025; 85347; 85610; 85730; 93005; 93458; 96372; 96374; 96376; 99152; 99153; C1725; C1769; C1874; C1887; C1894; C9600; G0378; J1644; J1650; J1940; J2250; J3010; J3490; J7030; J7512; Q0163; Q9967

== ENCOUNTER 2024-04-25 08:30 | Oncology outpatient (recurring) (ONCR) | payer MEDICARE, BC, SELFPAY ==
--- NOTE | 2024-04-06 06:15 | USCV_ITS ---
Bhavin Godfrey Age: 88 Gender: M : 1935 Exam Date: 04/06/2024 06:04 Ordering Phys: Nae Childress MD ([email or web address]) Technologist: [place] [facility] [place]: chf BP: / HR: 60 Rhythm: Sinus Technical Quality: Adequate MEASUREMENTS (Male / Female) Normal Values 2D ECHO LVOT Diameter 2.1 cm LV Ejection Fraction MOD 4C 57.6 % LV Ejection Fraction MOD 2C 64.8 % LV Ejection Fraction 2C AL 63.9 % LA Diameter 3.0 cm RA Systolic Volume 4C AL 26.0 ml RA Systolic Volume 4C MOD 24.1 ml Aorta at Sinotubular Diameter 3.5 cm IVC Diameter 1.7 cm M-MODE LA Ao Ratio MM 1.0 AV Cusp Separation MM 2.4 cm DOPPLER AV Peak Velocity 125.0 cm/s LVOT Peak Velocity 86.0 cm/s AV Area Cont Eq vti 3.5 cm squared AV Area Cont Eq pk 2.3 cm squared MV Peak Velocity 128.0 cm/s MV Area PHT 8.2 cm squared Mitral E to A Ratio 0.6 TR Peak Velocity 304.0 cm/s TR Peak Gradient 37.0 mmHg TV Peak E Velocity 78.0 cm/s PV Peak Velocity 92.3 cm/s FINDINGS Left Ventricle Diffuse hypokinesia left ventricular ejection fraction of around 45-50%. Moderate concentric left trickle hypertrophy.Grade I/IV diastolic dysfunction (abnormal relaxation filling pattern), normal to mildly elevated filling pressures. Right Ventricle Normal right ventricular size and systolic function. Right Atrium Normal right atrial size. Left Atrium Mildly increased left atrial size. Mitral Valve Mild mitral valve regurgitation. Aortic Valve Mild aortic valve regurgitation. Tricuspid Valve Aydi-bd-eabkacaw tricuspid valve regurgitation. Estimated pulmonary artery peak systolic pressure 40 mmHg Pulmonic Valve No gross abnormalities noted Pericardium No pericardial effusion. Aorta Normal aortic annulus size. IVC Normal inferior vena cava. CONCLUSIONS Diffuse hypokinesia left ventricular ejection fraction of around 45-50%. Moderate concentric left trickle hypertrophy.Grade I/IV diastolic dysfunction (abnormal relaxation filling pattern), normal to mildly elevated filling pressures. Mildly increased left atrial size. Mild mitral valve regurgitation. Mild aortic valve regurgitation. Cevp-ci-avuloahe tricuspid valve regurgitation. Estimated pulmonary artery peak systolic pressure 40 mmHg. There is no pericardial effusion. There are no intracardiac masses. Compared to the study from 01/23/2022, there is a drop in the LV ejection fraction Dr Nae Childress MD [facility] (Electronically Signed) Final Date: 06 April 2024 14:06 S
--- NOTE | 2024-04-25 08:30 | US_ITS ---
WS: [id number] ULTRASOUND SOFT TISSUES RIGHT neck HISTORY: R22.1 - Localized swelling, mass and lump, neck, history of prostate cancer. COMPARISON: None available. TECHNIQUE: 2-D and color Doppler imaging is submitted. Ultrasound is directed along the RIGHT neck as indicated by the patient to the area of concern. There is a nearly isoechoic mass with displacement of the adjacent soft tissues. Mass measures 4.2 x 1.4 c m and is most consistent with a lipoma. There is no increased vascularity. 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 No adenopathy.
== END 2024-04-26 23:59 | disposition home or self-care (01) ==
LOC: RAD 04-26 → ONCMED 04-26 09:35
PROVIDERS: PCP Nurse Practitioner Family; Visit Provider Nurse Practitioner Family
DX: Z51.11 Encounter for antineoplastic chemotherapy (principal); C61 Malignant neoplasm of prostate; C79.51 Secondary malignant neoplasm of bone; Z79.899 Other long term (current) drug therapy; Z79.818 Long term (current) use of other agents affecting estrogen receptors and estrogen levels; Z79.52 Long term (current) use of systemic steroids; Z92.3 Personal history of irradiation; Z87.891 Personal history of nicotine dependence; Z95.828 Presence of other vascular implants and grafts; R06.09 Other forms of dyspnea
CPT/HCPCS: 76536; 93306

== ENCOUNTER 2024-04-28 11:00 | Oncology outpatient (recurring) (ONCR) | payer MEDICARE, BC, SELFPAY ==
[2024-04-28 12:08] LABS: Basophils % 0.2 %; Eosinophils % 0.6 %; Hematocrit 40.9 % (37-53); Lymphocytes # 0.9 10^3/uL (0.8-4.8); Lymphocytes % 13.6 %; Mean Corpuscular Hemoglobin 30.9 pg (27-33); Mean Corpuscular Volume 96.5 fl (82-101); Mean Platelet Volume 8.2 fL (7.4-10.4); Monocytes # 0.6 10^3/uL (0.2-0.9); Monocytes % 8.7 %; Neutrophils # 4.85 10^3/uL (1.8-7.7); Neutrophils % 76.4 %; Nucleated Red Blood Cells % 0 %; Platelet Count 196 10^3/cmm (157-399); Red Blood Count 4.24 10^6/uL (3.85-5.65); Red Cell Distribution Width 13.2 % (12.1-15.1); White Blood Count 6.34 10^3/uL (3.29-11.43)
[2024-04-28 12:45] LABS: Alanine Aminotransferase 19 U/L (0-41); Albumin Level 4.4 g/dL (3.5-5.2); Alkaline Phosphatase 60 U/L (40-130); Aspartate Amino Transferase 20 U/L (0-40); Blood Urea Nitrogen 17 mg/dL (8-23); Calcium 9.1 mg/dL (8.5-10.5); Carbon Dioxide 30 mmol/L (22-29); Chloride 100 mmol/L (98-107); Creatinine Clr Calc Pharmacy 49.4364; Globulin 2.4 g/dL (1.3-4.6); Glucose 129 mg/dL (65-115); Osmolality Calculated 291 mOsm/kg (285-295); Prostate Specific Antigen 0.016 ng/mL (0-4); Sodium 139 mmol/L (136-145); Total Bilirubin 0.8 mg/dL (0.15-1.2); Total Protein 6.8 g/dL (6.6-8.7)
[2024-04-28] MEDS: denosumab 120 mg SDV SUBCUT (14:20)
[2024-04-28] MEDS: lidocaine 1% INJ 20 mL SUBCUT (14:21)
[2024-04-28] MEDS: goserelin acetate 10.8 mg Implant SUBCUT (14:45)
== END 2024-05-27 23:59 | disposition home or self-care (01) ==
PROVIDERS: Nurse Practitioner Family; PCP Nurse Practitioner Family; Visit Provider Nurse Practitioner Family
DX: Z51.11 Encounter for antineoplastic chemotherapy (principal); C79.51 Secondary malignant neoplasm of bone; C61 Malignant neoplasm of prostate; Z79.899 Other long term (current) drug therapy; Z79.818 Long term (current) use of other agents affecting estrogen receptors and estrogen levels; Z79.52 Long term (current) use of systemic steroids; Z92.3 Personal history of irradiation; Z87.891 Personal history of nicotine dependence; Z95.828 Presence of other vascular implants and grafts
CPT/HCPCS: 36415; 80053; 84153; 85025; 96372; 96402; 99214; J0897; J9202

== ENCOUNTER → 2024-05-10 12:33 | Outpatient (BNVA) | payer MEDICARE, BC, SELFPAY | PROVIDERS: PCP Nurse Practitioner Family; Visit Provider Psychiatry & Neurology Neurology | DX: R41.3 Other amnesia (principal); F03.90 Unspecified dementia, unspecified severity, without behavioral disturbance, psychotic disturbance, mood disturbance, and anxiety | CPT/HCPCS: 99212 ==

== ENCOUNTER 2024-06-09 08:37 | Oncology outpatient (recurring) (ONCR) | payer MEDICARE, BC, SELFPAY ==
[2024-06-09 09:18] LABS: Basophils % 0.2 %; Eosinophils # 0.1 10^3/uL (0.0-0.8); Eosinophils % 0.9 %; Hematocrit 38.8 % (37-53); Lymphocytes # 0.9 10^3/uL (0.8-4.8); Lymphocytes % 13.7 %; Mean Corpuscular HGB Conc 32.7 g/dL (30-55); Mean Corpuscular Hemoglobin 31.4 pg (27-33); Mean Platelet Volume 8.1 fL (7.4-10.4); Monocytes # 0.7 10^3/uL (0.2-0.9); Monocytes % 10.7 %; Neutrophils % 73.7 %; Nucleated Red Blood Cells % 0 %; Platelet Count 188 10^3/cmm (157-399); Red Blood Count 4.04 10^6/uL (3.85-5.65); White Blood Count 6.37 10^3/uL (3.29-11.43)
[2024-06-09 09:46] LABS: Alanine Aminotransferase 19 U/L (0-41); Albumin Level 3.8 g/dL (3.5-5.2); Alkaline Phosphatase 52 U/L (40-130); Anion Gap 13.8 (5-19); Aspartate Amino Transferase 19 U/L (0-40); Blood Urea Nitrogen 14 mg/dL (8-23); Calcium 9.1 mg/dL (8.5-10.5); Carbon Dioxide 29 mmol/L (22-29); Chloride 96 mmol/L (98-107); Creatinine Clr Calc Pharmacy 55.0333; Globulin 2.1 g/dL (1.3-4.6); Glucose 131 mg/dL (65-115); Lactate Dehydrogenase 234 U/L (135-225); Osmolality Calculated 282 mOsm/kg (285-295); Potassium 3.8 mmol/L (3.5-5.1); Sodium 135 mmol/L (136-145); Total Bilirubin 0.9 mg/dL (0.15-1.2); Total Protein 5.9 g/dL (6.6-8.7)
[2024-06-09 09:54] LABS: Testosterone Total < 2.5 ng/dL (193-740)
[2024-06-09 10:25] LABS: 25 Hydroxy Vitamin D 30 ng/mL (30-100)
== END 2024-06-24 23:59 | disposition home or self-care (01) ==
PROVIDERS: Nurse Practitioner; PCP Nurse Practitioner Family; Visit Provider Nurse Practitioner Family
DX: C61 Malignant neoplasm of prostate (principal); C79.82 Secondary malignant neoplasm of genital organs; C79.51 Secondary malignant neoplasm of bone; E55.9 Vitamin D deficiency, unspecified; M19.90 Unspecified osteoarthritis, unspecified site; Z87.891 Personal history of nicotine dependence; R05.9 Cough, unspecified; R11.0 Nausea; Z92.3 Personal history of irradiation; Z79.818 Long term (current) use of other agents affecting estrogen receptors and estrogen levels; Z79.899 Other long term (current) drug therapy
CPT/HCPCS: 36415; 80053; 82306; 83615; 84153; 84403; 85025; 99213

== ENCOUNTER 2024-07-21 09:30 | Oncology outpatient (recurring) (ONCR) | payer MEDICARE, BC, SELFPAY ==
--- NOTE | 2024-06-29 12:49 | XR_ITS ---
WS: [id number] XR hip RT 2-3V wo/w pel* [id number] REASON FOR EXAM: acute pain unable to bear weight FINDINGS: The pelvis and right hip are unchanged compared to 07/28/2023. No fracture. 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 Possibly a small blastic metastasis in the base of the lesser trochanter. XR/XR hip RT 2-3V wo/w pel* [id number] IMPRESSION: Stable abnormal pelvis as above.
--- NOTE | 2024-06-29 12:49 | XR_ITS ---
WS: [id number] XR lumbar spine 2-3V* [id number] REASON FOR EXAM: acute pain FINDINGS: Lumbar spine is unchanged compared to the previous examination of 11/21/2022. No definite metastatic disease. No acute compression fracture. Moderately severe multilevel degenerative spondylosis and rotatory levoscoliosis. XR/XR lumbar spine 2-3V* [id number] IMPRESSION: Stable abnormal lumbar spine with no metastatic disease or acute compression fr acture.
--- NOTE | 2024-07-04 11:33 | ONCRAD EPV_ITS ---
Radiation Oncology Established Patient Visit Patient: Bhavin Godfrey [id number] : 1935 Age: 88 Sex: Male Dictated by: Dr. Miriam Reddy Date of Service: 07/04/2024 Referring Physician(s) : Dr. Foote Diagnosis: C61 - Malignant neoplasm of prostate, Diagnosed 05/20/2021 (Active) C79.51 - Secondary malignant neoplasm of bone, Diagnosed 05/20/2021 (Active) C79.51 - Secondary malignant neoplasm of bone, Diagnosed 03/2021 (Active Radiotherapy to Date: Course: Pelvis 2022, Treatment Site: RT Hip Mets, Ref. ID: [id number], Energy: 15X, Dose/Fx (cGy): 400, #Fx: 5 / 5, Dose Correction (cGy): 0, Total Dose Delivered (cGy): 2,000, Start Date: 12/15/2022, End Date: 12/19/2022, Elapsed Days: 4 Course: Spine Mets 2022, Treatment Site: Lumbar Spine - L3 & L4, Ref. ID: [id number], Energy: 15X, Dose/Fx (cGy): 400, #Fx: 5 / 5, Dose Correction (cGy): 0, Total Dose Delivered (cGy): 2,000, Start Date: 06/09/2022, End Date: 06/13/2022, Elapsed Days: 4 Current History: Patient is a 89-year-old gentleman with a longstanding history of prostate cancer who began to have markedly increased pain in the last 3 weeks in the right hip. Says this is constant and radiates sometimes past his knee. He has put him back on a walker. Is caused his left hip to be more sore intermittently. He was worked up with plain x-rays and a PET scan which showed markedly extensive bony metastasis. He was placed on oxycodone which half a pill helps control his pain down to a level 4. His daughter is concerned however that the pain medicines are causing dizziness balance issues and constipation. He is here today to discuss using radiation to get his pain under control so that he can get off of the narcotics. Current Medications: Cholecalciferol, finasteride, levothyroxine Sodium, multi-Vitamin/Minerals, neuriva, oxyCODONE-Acetaminophen, predniSONE, predniSONE, tamsulosin HCl, zytiga. Allergies: No Known Allergies Current Complaints / Review of Systems: . Vital Signs: Physical Exam: General: Patient is accompanied today by his daughter. HEENT: Normocephalic atraumatic. Pupils are equal, sclera clear, extraocular muscles intact Pulmonary: Respiratory rate is regular nonlabored Cardiovascular: Regular rate and rhythm Abdomen: Moderately protuberant android pattern Pelvis/thorax: He does not have any palpable pain in the right hip area but grabs the area of the ischium and right hip joint when he describes where his pain is located. Extremities: Without edema or lymphedema Skin: Warm and dry Neuro: Alert and orient x 3. Gait is hindered by his current pain. He uses a walker. Speech intact. Psych: Affect appropriate for current situation Performance Status: 70 Lab: None pending. Pathology: Primary, c61 - malignant neoplasm of prostate, Diagnosed 05/20/2021 (active) , Primary, c79.51 - secondary malignant neoplasm of bone, Diagnosed 05/20/2021 (active) and Primary, c79.51 - secondary malignant neoplasm of bone, Diagnosed 03/2021 (active) . Imaging: See HPI Impression: Adenocarcinoma the prostate stage IV Plan: This point we reviewed the findings on his scans and his current symptoms. He does have widespread bony metastasis. We talked about using the radiation to get his pain under control. Last time he was treated a year and a half ago he received 5 treatments to that hip. We talked about the planning process and the risks and side effects. We reviewed the risks and side effects both acute and long-term. At this point he would like to go ahead and proceed with treatment to try and decrease the pain. He like to get off his walker and off the narcotics. Will schedule him for simulation and begin his treatment shortly thereafter with a plan for a 1 week course. Signed by: 07/04/2024 11:31:47 AM <<Signature on File>> Time spent with patient:25 CPT Code: * CPT Code: *
--- NOTE | 2024-07-12 15:06 | ONCRAD TMN_ITS ---
Radiation Oncology Weekly Treatment Management Patient: Epifanio Panda MR#: [id number] : 1935> Attending Physician: Dr. Miriam Reddy Date of Service: 07/12/2024 Fractions: 2 out of 5 Referring Physician(s) : Mariaelena Mensah Diagnosis: C61 - Malignant neoplasm of prostate, Diagnosed 05/20/2021 (Active) C79.51 - Secondary malignant neoplasm of bone, Diagnosed 05/20/2021 (Active) C79.51 - Secondary malignant neoplasm of bone, Diagnosed 03/2021 (Active) Radiotherapy to date: Course: Both hips, Treatment Site: Lt Hip 20Gy, Ref. ID: [id number], Energy: 15X, Dose/Fx (cGy): 400, #Fx: 2 / 5, Dose Correction (cGy): 0, Total Dose Delivered (cGy): 800, Start Date: 07/11/2024, Elapsed Days: 1 Treatment Site: Rt Hip 20Gy, Ref. ID: [id number], Energy: 15X, Dose/Fx (cGy): 400, #Fx: 2 / 5, Dose Correction (cGy): 0, Total Dose Delivered (cGy): 800, Start Date: 07/11/2024, Elapsed Days: 1 Reason for visit: The patient is being seen today as part of their regularly scheduled weekly on treatment visits to assess for acute toxicities from radiotherapy. Review of Systems: Patient noticed that he was more sore this morning when he got up but it has eased some Vital Signs: Performed on 07/12/2024 2:27 PM BMI - 23.149 kg/m2 (high), Height - 67 in, Weight - 147.8 lbs, Temperature - 96.5 f, Pulse - 82 /min, Respiration - 18 /min, O2 Sat - 99 %, Pain - 7, Fatigue - 0 and BP - 116/ 76 mm(hg). Physical Exam: No changes on exam Imaging: Radiation therapy imaging related to accurate target localization (i.e. KV, MV and CBCT) was reviewed. Appropriate changes, if any, were made to ensure treatment accuracy. Plan: Will continue with the treatment plan. I reassured him that often times when the patient has worsening pain with the first treatment it means that there can have a good response down the line. Signed by: Dr. Miriam Reddy 07/12/2024 3:05:36 PM
--- NOTE | 2024-07-19 09:10 | N.ONRD TS_ITS ---
Radiation Oncology Treatment Summary Patient: Alma MR#: [id number] : 1935> Age: 88> Sex: Male Dictated by: Dr. Miriam Reddy Date of Service: 07/15/2024 Referring Physician(s) : Mariaelena Mensah Diagnosis: C61 - Malignant neoplasm of prostate, Diagnosed 05/20/2021 (Active) C79.51 - Secondary malignant neoplasm of bone, Diagnosed 05/20/2021 (Active) C79.51 - Secondary malignant neoplasm of bone, Diagnosed 03/2021 (Active) Radiotherapy to Date: Course: Both hips, Treatment Site: Lt Hip 20Gy, Ref. ID: [id number], Energy: 15X, Dose/Fx (cGy): 400, #Fx: 5 / 5, Dose Correction (cGy): 0, Total Dose Delivered (cGy): 2,000, Start Date: 07/11/2024, End Date: 07/15/2024, Elapsed Days: 4 Treatment Site: Rt Hip 20Gy, Ref. ID: [id number], Energy: 15X, Dose/Fx (cGy): 400, #Fx: 5 / 5, Dose Correction (cGy): 0, Total Dose Delivered (cGy): 2,000, Start Date: 07/11/2024, End Date: 07/15/2024, Elapsed Days: 4 Treatment Site: RT Hip Mets, Ref. ID: [id number], Energy: 15X, Dose/Fx (cGy): 400, #Fx: 5 / 5, Dose Correction (cGy): 0, Total Dose Delivered (cGy): 2,000, Start Date: 12/15/2022, End Date: 12/19/2022, Elapsed Days: 4 Treatment Site: Lumbar Spine - L3 & L4, Ref. ID: [id number], Energy: 15X, Dose/Fx (cGy): 400, #Fx: 5 / 5, Dose Correction (cGy): 0, Total Dose Delivered (cGy): 2,000, Start Date: 06/09/2022, End Date: 06/13/2022, Elapsed Days: 4 Clinical Summary: The patient tolerated RT well. Patient had a flare of his pain after the first treatment. He otherwise tolerated treatments well with no toxicity Plan: End of treatment today. Continue on the above medication until the skin reaction resolves. Follow up in one month. Signed by: Dr. Miriam Reddy>07/19/2024 9:09:27 AM <<Signature on File>>
[2024-07-21 10:18] LABS: Basophils % 0.5 %; Eosinophils # 0.1 10^3/uL (0.0-0.8); Eosinophils % 1.1 %; Hematocrit 37.9 % (37-53); Lymphocytes # 0.6 10^3/uL (0.8-4.8); Lymphocytes % 9.4 %; Mean Corpuscular HGB Conc 32.7 g/dL (30-55); Mean Corpuscular Hemoglobin 31.5 pg (27-33); Mean Corpuscular Volume 96.2 fl (82-101); Mean Platelet Volume 8.3 fL (7.4-10.4); Monocytes # 0.7 10^3/uL (0.2-0.9); Monocytes % 10.2 %; Neutrophils # 5.07 10^3/uL (1.8-7.7); Neutrophils % 78.3 %; Nucleated Red Blood Cells % 0 %; Platelet Count 188 10^3/cmm (157-399); Red Blood Count 3.94 10^6/uL (3.85-5.65); White Blood Count 6.47 10^3/uL (3.29-11.43)
[2024-07-21 10:21] LABS: Erythrocyte Sedimentation Rate < 1 mm/hr (0-10)
[2024-07-21 10:48] LABS: Alanine Aminotransferase 21 U/L (0-41); Albumin Level 3.8 g/dL (3.5-5.2); Alkaline Phosphatase 60 U/L (40-130); Anion Gap 12.6 (5-19); Aspartate Amino Transferase 22 U/L (0-40); Blood Urea Nitrogen 17 mg/dL (8-23); Calcium 8.8 mg/dL (8.5-10.5); Carbon Dioxide 30 mmol/L (22-29); Chloride 97 mmol/L (98-107); Globulin 2.1 g/dL (1.3-4.6); Glucose 141 mg/dL (65-115); Osmolality Calculated 286 mOsm/kg (285-295); Potassium 3.6 mmol/L (3.5-5.1); Prostate Specific Antigen 0.018 ng/mL (0-4); Sodium 136 mmol/L (136-145); Total Bilirubin 0.9 mg/dL (0.15-1.2); Total Protein 5.9 g/dL (6.6-8.7)
[2024-07-21 10:50] LABS: Testosterone Total < 2.5 ng/dL (193-740)
[2024-07-21] MEDS: lidocaine 1% INJ 20 mL SUBCUT (11:22)
[2024-07-21] MEDS: denosumab 120 mg SDV SUBCUT (11:45)
[2024-07-21] MEDS: goserelin acetate 10.8 mg Implant SUBCUT (11:49)
== END 2024-07-21 23:59 | disposition home or self-care (01) ==
PROVIDERS: Internal Medicine; PCP Nurse Practitioner Family; Visit Provider Radiology Radiation Oncology
DX: Z53.9 Procedure and treatment not carried out, unspecified reason (principal); Z51.0 Encounter for antineoplastic radiation therapy; C79.51 Secondary malignant neoplasm of bone; C61 Malignant neoplasm of prostate; Z87.891 Personal history of nicotine dependence; Z92.3 Personal history of irradiation; Z79.899 Other long term (current) drug therapy; Z79.891 Long term (current) use of opiate analgesic
CPT/HCPCS: 36415; 72100; 73502; 77290; 77295; 77300; 77321; 77334; 77336; 77387; 77412; 80053; 84153; 84403; 85025; 85651; 96372; 96401; 96402; 99024; 99213; 99214; 99215; J0897; J9202; J9999

== ENCOUNTER → 2024-09-21 15:28 | Outpatient (BNVA) | payer MEDICARE, BC, SELFPAY | PROVIDERS: PCP Nurse Practitioner Family; Visit Provider Psychiatry & Neurology Neurology | DX: R41.3 Other amnesia (principal); F03.90 Unspecified dementia, unspecified severity, without behavioral disturbance, psychotic disturbance, mood disturbance, and anxiety; R51.9 Headache, unspecified; I70.90 Unspecified atherosclerosis | CPT/HCPCS: 36415; 83520; 99212 ==

== ENCOUNTER → 2024-09-27 08:51 | Outpatient (BNVA) | payer MEDICARE, BC, SELFPAY | PROVIDERS: PCP Nurse Practitioner Family; Visit Provider Nurse Practitioner Family | DX: L82.1 Other seborrheic keratosis (principal); L81.4 Other melanin hyperpigmentation; Q27.8 Other specified congenital malformations of peripheral vascular system; L57.8 Other skin changes due to chronic exposure to nonionizing radiation; D48.5 Neoplasm of uncertain behavior of skin; L57.0 Actinic keratosis | CPT/HCPCS: 11104; 17000; 99213 ==

== ENCOUNTER 2024-10-13 09:30 | Oncology outpatient (recurring) (ONCR) | payer MEDICARE, BC, SELFPAY ==
--- NOTE | 2024-09-29 08:00 | CT_ITS ---
WS: [id number] CT HEAD TECHNIQUE: Noncontrast CT of the head obtained from the skullbase to the vertex. CLINICAL INFORMATION: F03.90 - Unspecified dementia, unspecified severity, with... COMPARISON: None. DLP: 1031.[address] scans at [facility] use at least one of these dose optimization techniques: automated exposure control; mA and/or kV adjustment per patient size (includes targeted exams where dose is matched to clinical indication); or iterative reconstruction. FINDINGS: No evidence of intracranial hemorrhage or mass effect. Ventricular system and basal cisterns are patent. Mild small vessel changes with moderate parenchymal volume loss. No extra-axial fluid collections. No evidence of mass or mass effect. Vascular calcification. Moderate atrophy LEFT greater than RIGHT temporal lobes similar to previous. Paranasal sinuses and mastoid air cells are well aerated. .Normal visualized soft tissues. CT/CT head wo con* [id number] IMPRESSION: 1. No evidence of intracranial hemorrhage or mass effect. 2. Mild small vessel changes. Moderate parenchymal volume loss. 3. Moderate atrophy LEFT greater than RIGHT temporal lobe similar to previous. 4. Vascular calcification 5. No acute intracranial findings.
--- NOTE | 2024-10-03 12:45 | USCV_ITS ---
Bhavin Godfrey Age: 88 Gender: M : 1935 Exam Date: 10/03/2024 10:45 Ordering Phys: John Mora MD Technologist: ROCCO [place] [facility] [place]: Atheros[place] Risk Factors: Previous Vascular Surgery: Right Brachial BP: / Left Brachial BP: / Right Left Velocity (cm/s) Spectral Plaque Velocity (cm/s) Spectral Plaque Syst/Diast Broadening Syst/Diast Broadening 49.50/ 14.70 Prox CCA 57.40 / 17.10 42.10/ 14.70 Mid CCA 55.60 / 16.60 37.50/ 11.20 Distal CCA 39.00 / 12.90 29.90/ 11.10 Prox ICA 38.90 / 12.60 36.90/ 15.10 Mid ICA 44.60 / 13.10 55.00/ 21.70 Distal ICA 41.80 / 16.80 39.80 ECA 41.40 0.80 ICA/CCA 1.00 Antegrade Vertebral Antegrade 45.80/ 15.90 cm/s 47.10/ 11.20 cm/s Bi Subclavian Tri 47.70 48.20 FINDINGS Comparison:. 08/11/23 No significant elevation of systolic or diastolic velocities. Waveforms are normal. Diffuse bilateral scattered calcified plaque and intimal thickening throughout the common carotid arteries and extending through the bifurcation. CONCLUSIONS Bilateral ICA stenosis less than 50%. No interval change in stenosis since prior exam. Dr. Alfreda Delcid DO (Electronically Signed) Final Date: 03 October 2024 13:03 S
[2024-10-13 10:11] LABS: Basophils % 0.5 %; Eosinophils % 0.6 %; Hematocrit 41.4 % (37-53); Lymphocytes # 0.8 10^3/uL (0.8-4.8); Lymphocytes % 12.3 %; Mean Corpuscular HGB Conc 32.4 g/dL (30-55); Mean Corpuscular Volume 95.8 fl (82-101); Mean Platelet Volume 8.2 fL (7.4-10.4); Monocytes # 0.5 10^3/uL (0.2-0.9); Monocytes % 8.4 %; Neutrophils % 77.6 %; Nucleated Red Blood Cells % 0 %; Platelet Count 220 10^3/cmm (157-399); Red Blood Count 4.32 10^6/uL (3.85-5.65); Red Cell Distribution Width 12.8 % (12.1-15.1); White Blood Count 6.44 10^3/uL (3.29-11.43)
[2024-10-13 10:43] LABS: Alanine Aminotransferase 21 U/L (0-41); Alkaline Phosphatase 70 U/L (40-130); Anion Gap 12.6 (5-19); Aspartate Amino Transferase 22 U/L (0-40); Blood Urea Nitrogen 20 mg/dL (8-23); Carbon Dioxide 33 mmol/L (22-29); Chloride 96 mmol/L (98-107); Creatinine Clr Calc Pharmacy 50.2104; Globulin 2.3 g/dL (1.3-4.6); Glucose 233 mg/dL (65-115); Lactate Dehydrogenase 276 U/L (135-225); Osmolality Calculated 296 mOsm/kg (285-295); Potassium 3.6 mmol/L (3.5-5.1); Sodium 138 mmol/L (136-145); Total Bilirubin 0.8 mg/dL (0.15-1.2); Total Protein 6.3 g/dL (6.6-8.7)
[2024-10-13 10:44] LABS: Prostate Specific Antigen < 0.014 ng/mL (0-4); Testosterone Total < 2.5 ng/dL (193-740)
[2024-10-13] MEDS: denosumab 120 mg SDV SUBCUT (12:35)
[2024-10-13] MEDS: lidocaine 1% INJ 20 mL SUBCUT (12:36)
[2024-10-13] MEDS: goserelin acetate 10.8 mg Implant SUBCUT (12:37)
--- NOTE | 2024-10-13 12:50 | XR_ITS ---
WS: [id number] Acute abdomen series, 10/13/2024 Clinical Data: CONSTIPATION Comparison: Portable chest, 04/06/2024 Findings: In the chest there are no nodules, masses or effusions. The heart is normal. The pulmonary vascularity is not increased. The cardiac pacemaker remains in the same position with the generator overlying the left upper lateral chest. The aortic arch shows calcification and tortuosity of the descending thoracic aorta. No free air is seen beneath the diaphragms. No abnormal intra-abdominal masses or calcifications are seen. There is air in the stomach, small bowel and colon. There is a large amount of fecal material in the colon. There is osteoarthritis and dextroscoliosis of the lumbar spine. XR/XR acute abdomen series [id number] Impression: 1. Atherosclerosis. 2. Moderate generalized ileus. 3. Large amount of fecal material in the colon.
== END 2024-10-24 23:59 | disposition home or self-care (01) ==
PROVIDERS: Internal Medicine; PCP Nurse Practitioner Family; Visit Provider Psychiatry & Neurology Neurology
DX: Z53.9 Procedure and treatment not carried out, unspecified reason; C61 Malignant neoplasm of prostate; C79.51 Secondary malignant neoplasm of bone; I70.90 Unspecified atherosclerosis; K56.7 Ileus, unspecified; K56.41 Fecal impaction; Z79.818 Long term (current) use of other agents affecting estrogen receptors and estrogen levels; Z87.891 Personal history of nicotine dependence; Z92.3 Personal history of irradiation; Z79.899 Other long term (current) drug therapy
CPT/HCPCS: 36415; 70450; 74022; 80053; 83615; 84153; 84403; 85025; 93880; 96372; 96402; 99215; J0897; J9202; J9999

== ENCOUNTER 2024-11-01 17:15 | Oncology outpatient (recurring) (ONCR) | payer MEDICARE, BC, SELFPAY ==
[2024-10-26 08:25] LABS: Hematocrit 43.0 % (37-53); Hemoglobin 13.60 g/dL (11.27-16.99); Mean Corpuscular HGB Conc 31.6 g/dL (30-55); Mean Corpuscular Hemoglobin 30.6 pg (27-33); Mean Corpuscular Volume 96.6 fl (82-101); Nucleated Red Blood Cells % 0 %; Platelet Count 213 10^3/cmm (157-399); Red Blood Count 4.45 10^6/uL (3.85-5.65); White Blood Count 6.89 10^3/uL (3.29-11.43)
--- NOTE | 2024-10-26 08:26 | XR_ITS ---
WS: [id number] XR acute abdomen series [id number] REASON FOR EXAM: followup abnormal abdominal xray; abdom pain FINDINGS: No free air or retroperitoneal air. Bowel gas pattern is unremarkable. No organomegaly or mass identified. No urinary tract calculi demonstrated. XR/XR acute abdomen series [id number] IMPRESSION: No acute abdominal abnormality.
[2024-10-26 08:49] LABS: Alanine Aminotransferase 23 U/L (0-41); Albumin Level 4.3 g/dL (3.5-5.2); Alkaline Phosphatase 75 U/L (40-130); Anion Gap 15.9 (5-19); Aspartate Amino Transferase 20 U/L (0-40); Blood Urea Nitrogen 24 mg/dL (8-23); Calcium 9.3 mg/dL (8.5-10.5); Carbon Dioxide 30 mmol/L (22-29); Chloride 95 mmol/L (98-107); Creatinine Clr Calc Pharmacy 55.4867; Globulin 2.6 g/dL (1.3-4.6); Glucose 311 mg/dL (65-115); Osmolality Calculated 300 mOsm/kg (285-295); Potassium 3.9 mmol/L (3.5-5.1); Sodium 137 mmol/L (136-145); Total Protein 6.9 g/dL (6.6-8.7)
[2024-11-01] MEDS: iohexol 350 mg/mL 500 mL Btl (per mL) PO (16:16)
--- NOTE | 2024-11-01 17:15 | CTR_ITS ---
PROCEDURE INFORMATION: Exam: CT Abdomen And Pelvis With Contrast Exam date and time: 11/01/2024 5:05 PM Age: 88 years old Clinical indication: Generalized; Prior surgery; Surgery date: 6+ months; Surgery type: Hernia; HX of prostate cancer, worsening abdominal pain and bloating, constipation, bilateral hip pain; Additional info: Worsening abdominal pain and bloating, bilateral hip pain TECHNIQUE: Imaging protocol: Computed tomography of the abdomen and pelvis with contrast. Radiation optimization: All CT scans at this facility use at least one of these dose optimization techniques: automated exposure control; mA and/or kV adjustment per patient size (includes targeted exams where dose is matched to clinical indication); or iterative reconstruction. Contrast material: OMNI 350; Contrast volume: 100 ml; Contrast route: INTRAVENOUS (IV); COMPARISON: CT chest abdpel w/*[id number] 03/13/2023 2:28 PM RADIATION DOSE METRICS: Total DLP (mGy-cm): 436.91 FINDINGS: Lungs: Lung bases are clear. No pleural effusion. Liver: Normal. No mass. Gallbladder and biliary ducts: Normal. No calcified stones. No ductal dilation. Pancreas: Normal. No ductal dilation. Spleen: Normal. No splenomegaly. Adrenal glands: Normal. No mass. Kidneys and ureters: Normal. No hydronephrosis. Stomach and bowel: There is a moderate amount of stool noted throughout the colon. No bowel distension. Appendix: No evidence of appendicitis. Intraperitoneal space: Unremarkable. No free air. No significant fluid collection. Vasculature: Unremarkable. No abdominal aortic aneurysm. Lymph nodes: Unremarkable. No enlarged lymph nodes. Urinary bladder: Unremarkable as visualized. Reproductive: Prostate gland enlargement is noted along with chronic bladder wall thickening. Bones/joints: There are several small sclerotic lesions scattered throughout the bony pelvis including the iliac bones bilaterally as well as the left inferior pubic ramus. Sclerotic lesions also involve the lower ribcage and lower thoracic spine. No bony fracture noted. Soft tissues: A left inguinal hernia contains mesenteric fat. CT/CT abdomen pelvis w con* [id number] IMPRESSION: 1. Stable chronic sclerotic bony lesions. No change since 2022 2. Prostate gland enlargement is noted along with chronic bladder wall thickening. 3. Left inguinal hernia 4. Constipation
[2024-11-01] MEDS: iohexol 350 mg/mL 500 mL Btl (per mL) IV (17:18)
== END 2024-11-24 23:59 | disposition home or self-care (01) ==
LOC: RAD 11-02 → ONCMED 11-02 09:23
PROVIDERS: Nurse Practitioner; PCP Nurse Practitioner Family; Visit Provider Psychiatry & Neurology Neurology
DX: C61 Malignant neoplasm of prostate; C79.51 Secondary malignant neoplasm of bone; K56.7 Ileus, unspecified; M89.9 Disorder of bone, unspecified; N40.0 Benign prostatic hyperplasia without lower urinary tract symptoms; N32.89 Other specified disorders of bladder; K40.90 Unilateral inguinal hernia, without obstruction or gangrene, not specified as recurrent; K59.00 Constipation, unspecified; Z53.9 Procedure and treatment not carried out, unspecified reason
CPT/HCPCS: 36415; 74022; 74177; 80053; 85025; 99214

== ENCOUNTER → 2024-11-07 13:16 | Outpatient (BNVA) | payer MEDICARE, BC, SELFPAY | PROVIDERS: Visit Provider Student in an Organized Health Care Education/Training Program | DX: R12 Heartburn (principal) | CPT/HCPCS: 99204 ==

== ENCOUNTER 2024-11-29 06:44 | Day surgery (SDC) | payer MEDICARE, BC, SELFPAY ==
[2024-11-29 07:01] VITALS: BP 138/97; PULSE 81; RESP 17; TEMP 36.1; O2SAT 96; BMI 25.4
--- NOTE | 2024-11-29 07:29 | ANES.PREANE2 ---
Pre-Anesthetic Assessment Height/Weight: Height 1.68 m Weight 71.668 kg Temp Pulse Resp BP Pulse Ox O2 Del Method 97.0 F L 81 17 138/97 96 Room Air 11/29/24 07:01 11/29/24 07:01 11/29/24 07:01 11/29/24 07:01 11/29/24 07:01 11/29/24 07:01 Operation Date: 11/29/24 08:30 Proposed Procedures p EGD with Biopsy(Not Applicable) - Lavon Lynch MD Familial anesthetic complications: none Was Beta Ced taken within 24 hours: Yes Was Clonidine taken within 24 hours: N/A Last intake: Intake Last Liquid Date 11/28/24 Last Liquid Time 18:00 Last Solid Date 11/28/24 Last Solid Time 18:00 Social No alcohol and No tobacco Exam alert, oriented x 3, clear to auscultation bilaterally and regular rate & rhythm CV/HEM Coronary Artery Disease, Congestive Heart Failure and Hypertension Pacemaker MOBITZ block GI Gastroesophageal Reflux Disease Metabolic Thyroid Disease Anesthetic Plan ASA status: 4 Anesthesia: MAC Risk of > 500 ml blood loss (7ml/kg in children): No Medications/Allergies Home Medications ?Medication ?Instructions ?Recorded ?Confirmed ?Last Taken ?Type calcium 600 mg (as 1 tab PO DAILY 10/15/21 11/29/24 11/28/24 History carbonate)-vitamin D3 10 mcg (400 unit) tablet (Calcium 600 + D(3)) levothyroxine 75 mcg tablet 75 mcg PO QAM 04/06/24 11/29/24 11/29/24 History egsyetkynqtf-qimxxrle-ftmpjo 1 tab PO DAILY 04/06/24 11/29/24 11/28/24 History tablet (Multivitamin 50 Plus tablet) tamsulosin 0.4 mg capsule 0.4 mg PO BID 04/06/24 11/29/24 11/28/24 History aspirin 81 mg tablet,delayed 81 mg PO DAILY #30 tabs 04/09/24 11/29/24 11/28/24 Rx release atorvastatin 40 mg tablet 40 mg PO BEDTIME #90 tabs 04/28/24 11/29/24 11/28/24 Rx clopidogrel 75 mg tablet 75 mg PO DAILY #90 tabs 04/28/24 11/29/24 11/23/24 Rx vitB2 1.7 mg-niacin 20 mg-B6 2 1 ml sublingual DAILY 90 days #59 05/17/24 11/29/24 11/28/24 Rx mg-B12 1.2 mg/mL-dexpan sublingual mL liqd (B Complex) furosemide 20 mg tablet 20 mg PO QAM 07/13/24 11/29/24 11/28/24 History sennosides 8.6 mg-docusate sodium 2 tab-cap PO BID 07/13/24 11/29/24 11/28/24 History 50 mg tablet oxycodone 5 mg capsule 5 mg PO Q6H PRN pain 30 days #120 10/26/24 11/29/24 11/28/24 Rx caps pantoprazole 40 mg tablet,delayed 40 mg PO BID 30 days #60 tabs 11/07/24 11/29/24 11/28/24 Rx release potassium chloride 20 mEq/15 mL 10 meq (7.5 mL) PO DAILY #750 mL 11/07/24 11/29/24 11/28/24 Rx oral liquid prednisone 5 mg tablet 5 mg PO BID #60 tabs 11/17/24 11/29/24 11/28/24 Rx abiraterone 250 mg tablet 1,000 mg PO DAILY 11/24/24 11/29/24 11/29/24 History finasteride 5 mg tablet 5 mg PO DAILY 11/24/24 11/29/24 11/28/24 History metoprolol succinate 25 mg 25 mg PO DAILY 11/24/24 11/29/24 11/29/24 History tablet,extended release 24 hr (Toprol XL) ondansetron HCl 8 mg tablet 8 mg PO Q8H PRN Nausea And Vomiting 11/24/24 11/29/24 11/24/24 History trazodone 50 mg tablet 50 mg PO BEDTIME 11/24/24 11/29/24 11/28/24 History Allergies Allergy/AdvReac Type Severity Reaction Status Date / Time No Known Allergies Allergy Verified 11/29/24 06:56 Current Medications Generic Name Dose Route Start Last Admin Trade Name Freq PRN Reason Stop Dose Admin Sodium Chloride 1,000 mls @ 15 mls/hr 11/29/24 06:51 11/29/24 07:10 Sodium Chloride 0.9% IV 11/30/24 06:50 15 mls/hr .Q24H PRN Administration COLONOSCOPY FLUIDS PFSH Anesthesia Medical History (Updated 11/07/24 @ 14:00 by Lavon Lynch MD) Pacemaker Medtronic dual-chamber, implant 01/28/2022 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 Father , in his 80's No problems noted. Brother Stroke Other Cancer Dementia Suicide Social History Smoking and tobacco/nicotine status: never used tobacco/nicotine Quit status (tobacco/nicotine): has quit using Year quit tobacco: 1957 Former quit date comment: 65+ years Alcohol intake: never Lives independently: Yes Marital status: / Current occupational status: retired Data Anesthesia Cardiac Studies: Echocardiogram 04/06/24 Sestamibi Stress Test (Cardiology) 04/01/24 Cardiac Event Monitor 01/15/22
--- NOTE | 2024-11-29 08:34 | W.PM.OPSUD ---
Surgery/Procedure H&P Update DATE OF PROCEDURE: November 29, 2024 DATE H&P PERFORMED: 11/07/24 H&P UPDATE INFORMATION: I have reviewed H&P completed within last 30 days, I have examined patient prior to procedure and No changes to prior documentation PLANNED PROCEDURE: Operation Date: 11/29/24 08:30 Proposed Procedures p EGD with Biopsy(Not Applicable) - Lavon Lynch MD
[2024-11-29 08:45] VITALS: BP 152/93; PULSE 77; RESP 16; TEMP 36.1; O2SAT 95
--- NOTE | 2024-11-29 08:46 | ANE.PACU2 ---
Inpatient post-anesthesia follow up: Airway intact: Yes Vital signs: Temperature 97 F Pulse Rate 61 Respiratory Rate 16 Blood Pressure 145/93 Pulse Oximetry 95 Oxygen Delivery Me thod Room Air Oxygen Flow Rate 3 Fraction of Inspir ed Oxygen Hydration adequate: Yes Nausea and vomiting: No Pain level: 1 Mental status: Baseline
[2024-11-29 09:00] VITALS: BP 145/93; PULSE 61; RESP 16; O2SAT 95
== END 2024-11-29 09:39 | disposition home or self-care (01) ==
PROVIDERS: PCP Nurse Practitioner Family; Visit Provider Student in an Organized Health Care Education/Training Program
PROC: 0DJ08ZZ Inspection of Upper Intestinal Tract, Via Natural or Artificial Opening Endoscopic (ICD-10-PCS; principal; 2024-11-29 08:30)
DX: K29.50 Unspecified chronic gastritis without bleeding (principal); E03.9 Hypothyroidism, unspecified; I25.10 Atherosclerotic heart disease of native coronary artery without angina pectoris; I50.9 Heart failure, unspecified; K21.9 Gastro-esophageal reflux disease without esophagitis; I11.0 Hypertensive heart disease with heart failure; Z85.46 Personal history of malignant neoplasm of prostate; Z85.830 Personal history of malignant neoplasm of bone; Z87.891 Personal history of nicotine dependence; Z95.0 Presence of cardiac pacemaker; Z79.890 Hormone replacement therapy; Z79.82 Long term (current) use of aspirin; Z79.899 Other long term (current) drug therapy; Z79.01 Long term (current) use of anticoagulants
CPT/HCPCS: 43239; 88305; J2704; J7030

== ENCOUNTER → 2024-12-12 09:22 | Outpatient (BNVA) | payer MEDICARE, BC, SELFPAY | PROVIDERS: PCP Nurse Practitioner Family; Visit Provider Student in an Organized Health Care Education/Training Program | DX: Z09 Encounter for follow-up examination after completed treatment for conditions other than malignant neoplasm (principal) | CPT/HCPCS: 99213 ==

== ENCOUNTER → 2024-12-23 11:12 | Outpatient (BNVA) | payer MEDICARE, BC, SELFPAY | PROVIDERS: PCP Nurse Practitioner Family; Visit Provider Nurse Practitioner Family | DX: R53.83 Other fatigue (principal); I10 Essential (primary) hypertension; R73.09 Other abnormal glucose | CPT/HCPCS: 80053; 80061; 81000; 82962; 83036; 84443; 85025 ==

== ENCOUNTER 2024-12-25 09:34 | Emergency (ER) | payer MEDICARE, BC, SELFPAY ==
--- OUTSIDE RECORDS SUMMARY | 2024-12-25 09:39 | XMS_ITS | Clinical Summary ---
Author Organization [facility] Address [address] Attn: Epic Prelude ADT LAZARO MORAN [id number] Care Team Providers Care Electronics Technology Instructor Name Role Phone Non-Staff, Physician Primary Care Provider Unava ilable Allergies No known active allergies Medications levothyroxine 75 mcg tabletIndications:H yperlipidemia, unspecified hyperlipidemia type TAKE ONE TABLET BY MOUTH ONCE DAILY IN THE CLOTHESPIN DRIER OPERATOR 90 Tablet 1 9 Active IRON ORAL Take 1 Tablet by mouth daily. 9 Active fish oil-omega-3 fatty acids 340-1,000 mg Capsule Take 1 Capsule by mouth daily. 6 Active abiraterone (ZYTIGA) 250 mg tablet Take by mouth. Active acetaminophen (TYLENOL) 500 mg tablet Take 500 mg by mouth every 6 hours as needed. Active finasteride (PROSCAR) 5 mg tablet Take 5 mg by mouth daily. Active furosemide (LASIX) 20 mg tablet Take 20 mg by mouth daily. Active HYDROcodone-acetami nophen (NORCO) 5-325 mg tablet Take 1 Tablet by mouth every 6 hours as needed for Pain, Moderate. Active memantine HCl (MEMANTINE ORAL) Take 10 mg by mouth. Active potassium chloride (KLOR-CON) 10 mEq Extended Release tablet Take 10 mEq by mouth. Active predniSONE (DELTASONE) 5 mg tablet Take 5 mg by mouth daily. Active prochlorperazine maleate (COMPAZINE) 10 mg tablet Take 10 mg by mouth every 6 hours as needed for Nausea/Emesi s. Active sennosides-docusate sodium (SENNA-S) 8.6-50 mg tablet Take 1 Tablet by mouth daily. Active tamsulosin (FLOMAX) 0.4 mg capsule Take 0.4 mg by mouth daily. Active traZODone (DESYREL) 50 mg tablet Take 50 mg by mouth daily at bedtime. Active Active Problems Problem Noted Date Diagnosed Date Laceration of left index fin jt without foreign body without damage to nail 02/07/2024 Hypothyroidism due to acquired atrophy of thyroi d 01/28/2015 Elevated TSH 12/01/2013 Colon cancer screening 12/01/2013 Prostate cancer screening 11/10/2013 Hyperlipidemia 03/30/2009 Backache 03/30/2009 Encounters Date Type Department Care Team Description 12/13/2024 External Device Data [facility]STRACTION Provider, Abstract 12/06/2024 External Device Data [facility] Provider, Abstract 11/09/2024 External Device Data [facility] Provider, Abstract 11/08/2024 External Device Data [facility] Provider, Abstract 10/18/2024 External Device Data [facility] Provider, Abstract 10/18/2024 External Device Data [facility]STRACTION Provider, Abstract from Last 3 Months Immunizations Immunization Administration Dates Next Due (ADACEL/BOOSTRIX)(10 YR UP) TDAP VACCINE, 0.5ML, IM 03/07/2016 (PFIZER)(12 YR UP) COVID-19 VACCINE - EMERGENCY USE AUTHORIZATION, MRNA, [id number](PF) 30 MCG/0.3 ML IM SUSP 01/28/2021,06/12/2020,05/24/2020 (PNEUMOVAX 23)(50 YRS UP) PN EUMOCOCCAL POLYSACCHARIDE (PPV23) 0.5 ML, IM 11/10/2013 (TDVAX)(7 YRS UP) TETANUS AN D DIPHTHERIA TOXOIDS, ADSORBED (2 LF OF TETANUS TOXOID AND 2 LF OF DIPHTHERIA TOXOID), 0.5ML (PF), IM 05/20/2004 Influenza Seasonal Unspecifi ed Formulation IM 02/23/2016,02/21/2014,02/26/2012,02/17,01/21/2007 Influenza Vaccine High Dose 65+ Yrs IM 8,02/14/2017 PREVNAR (PCV13) pneumococcal 13-valent conjugate Vaccine 02/23/2016 Social History Tobacco Use Types Packs/Day Years Used Date Smoking Tobacco: Former Cigarettes Q uit: 04/27/1974 Smokeless Tobacco: Never Tobacco Cessation:Counseling Given: Not Answered Alcohol Use Standard Drinks/Week Comments No 0 (1 standard drink = 0.6 oz pur e alcohol) Feeling Safe Answer Date Recorded Are you in a relationship wi th someone who hurts you emotionally and/or physically? 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 Gender Identity Not on file Sexual Orientation Not on file Last Filed Vital Signs Vital Sign Reading Time Taken Comments Blood Pressure 133/79 02/07/2024 6:45 PM CDT Pulse 60 02/07/2024 6:45 PM CDT Temperature 36.9 C (98.5 F) 02/07/2024 4:43 PM CDT Respiratory Rate 18 02/07/2024 6:45 PM CDT Oxygen Saturation 97% 02/07/2024 6:45 PM CDT Inhaled Oxygen Concentration - - Weight 69.9 kg (154 lb) 02/07/2024 4:43 PM CDT Height 167.6 cm (5' 6 ) 02/07/2024 4:43 PM CDT Body Mass Index 24.86 02/07/2024 4:43 PM CDT Plan of Treatment Health Maintenance Due Date Last Done Comments ZOSTER VACCINE (1 of 2) 11/22/1987 RSV VACCINE (60+ or ) (1 - 1-dose 75+ series) 2012 COVID-19 Vaccine (2023-2 5 season) 2023 02/11/2022, 08/13/2021, 01/28/2021, Additional history exists INFLUENZA VACCINE (#1) 2024 3, 02/05/2022, 01/23/2021, Additional history exists DTAP/TDAP/TD VACCINES (2 - T d or Tdap) 03/07/2026 03/07/2016, 05/20/2004 PNEUMOCOCCAL VACCINE 50+ YEARS Completed 02/23/2016 , 11/10/2013 Insurance MEDICARE PART A AND B [facility] BL[facility] ACCESS [facility] Care Teams Electronics Technology Instructor Relationship Specialty Start Date End Date Non-Staff, Physician NO ADDRESS ON FILE PCP - General 06/28/19
--- NOTE | 2024-12-25 09:49 | W.ED.RECABL ---
HPI - Recheck/Abnormal Lab/Rx General: Chief Complaint: Recheck/Abnormal Lab/Rx Stated Complaint: high bloodsugar Time Seen by Provider: 12/25/24 09:46 Source: patient and family Mode of arrival: ambulatory History of Present Illness: 89-year-old male was recently diagnosed with diabetes 2 days ago states that in office the blood sugar was in the 500s he did start metformin states this morning was 419 and 1 to have it rechecked states he has had a little more weakness and sleeping more but no other complaints. Patient denies any pain he has had no fevers does have a history of dementia denies any vomiting or diarrhea Related Data Home Medications ?Medication ?Instructions ?Recorded ?Confirmed calcium 600 mg (as 1 tab PO DAILY 10/15/21 12/23/24 carbonate)-vitamin D3 10 mcg (400 unit) tablet (Calcium 600 + D(3)) levothyroxine 75 mcg tablet 75 mcg PO QAM 04/06/24 12/23/24 aokhzlfkrbmw-uuudouyb-megzzl 1 tab PO DAILY 04/06/24 12/23/24 tablet (Multivitamin 50 Plus tablet) tamsulosin 0.4 mg capsule 0.4 mg PO BID 04/06/24 12/23/24 furosemide 20 mg tablet 20 mg PO QAM 07/13/24 12/23/24 sennosides 8.6 mg-docusate sodium 2 tab-cap PO BID 07/13/24 12/23/24 50 mg tablet abiraterone 250 mg tablet 1,000 mg PO DAILY 11/24/24 12/23/24 finasteride 5 mg tablet 5 mg PO DAILY 11/24/24 12/23/24 metoprolol succinate 25 mg 25 mg PO DAILY 11/24/24 12/23/24 tablet,extended release 24 hr (Toprol XL) ondansetron HCl 8 mg tablet 8 mg PO Q8H PRN Nausea And Vomiting 11/24/24 12/23/24 trazodone 50 mg tablet 50 mg PO BEDTIME 11/24/24 12/23/24 Previous Rx's ?Medication ?Instructions ?Recorded aspirin 81 mg tablet,delayed 81 mg PO DAILY #30 tabs 04/09/24 release atorvastatin 40 mg tablet 40 mg PO BEDTIME #90 tabs 04/28/24 clopidogrel 75 mg tablet 75 mg PO DAILY #90 tabs 04/28/24 vitB2 1.7 mg-niacin 20 mg-B6 2 1 ml sublingual DAILY 90 days #59 05/17/24 mg-B12 1.2 mg/mL-dexpan sublingual mL liqd (B Complex) oxycodone 5 mg capsule 5 mg PO Q6H PRN pain 30 days #120 10/26/24 caps potassium chloride 20 mEq/15 mL 10 meq (7.5 mL) PO DAILY #750 mL 11/07/24 oral liquid pantoprazole 40 mg tablet,delayed 40 mg PO BID 30 days #60 tabs 12/12/24 release sucralfate 100 mg/mL oral 10 ml PO BID 30 days #840 mL 12/12/24 suspension prednisone 5 mg tablet 5 mg PO BID #60 tabs 12/15/24 blood sugar diagnostic (BluLink #100 ea 12/23/24 Glucose Test Strip) blood-glucose meter (Blood Glucose #1 ea 12/23/24 Monitoring kit) lancets 30 gauge (2-In-1 Lancet #200 ea 12/23/24 Device) metformin 500 mg tablet 500 mg PO DAILY #90 tabs 12/23/24 Allergies Allergy/AdvReac Type Severity Reaction Status Date / Time No Known Allergies Allergy Verified 12/23/24 10:32 Review of Systems Const: Reports: fatigue; Denies: fever(s), chills, body aches or change in appetite Eyes: Denies: blurry vision or eye discomfort ENMT: Denies: throat pain or dental pain Card: Denies: chest pain Resp: Denies: dyspnea GI: Denies: abdominal pain, nausea, vomiting or diarrhea : Denies: dysuria Musc: Denies: neck pain or back pain Skin/Breast: Denies: rash Neuro: Denies: headache(s) PFSH ED PFSH: Medical History Pacemaker Medtronic dual-chamber, implant 01/28/2022 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 Father , in his 80's No problems noted. Brother Stroke Other Cancer Dementia Suicide Social History Smoking and tobacco/nicotine status: never used tobacco/nicotine Quit status (tobacco/nicotine): has quit using Year quit tobacco: 1957 Former quit date comment: 65+ years Alcohol intake: never Lives independently: Yes Marital status: / Current occupational status: retired Physical Exam Const: COMMON NORMALS: no acute distress and healthy appearing HENMT: COMMON NORMALS: normocephalic and atraumatic HEAD & SCALP: normocephalic and atraumatic Eye: COMMON NORMALS: Equal, round and reactive pupils present and EOMs intact bilaterally PUPIL: Yes Equal, round and reactive pupils present Neck/C-Spine: COMMON NORMALS: full ROM and supple Chest: COMMONS NORMALS: normal inspection of the chest and normal palpation of entire chest wall Resp: COMMON NORMALS: normal respiratory effort, No retractions, No use of accessory muscles and clear to auscultation bilaterally AUSCULTATION: clear to auscultation bilaterally Cardio: COMMON NORMALS: regular rate, regular rhythm and No murmurs present (Cardio) RATE: regular rate RHYTHM: regular rhythm GI: COMMON NORMALS: Normal to inspection, nondistended, normoactive bowel sounds present, Soft to palpation, non-tender and no masses PALPATION: Yes Soft to palpation Extremity: COMMON NORMALS: normal to inspection and full ROM Neuro: COMMON NORMALS: moves all extremities and no focal motor deficits Psych: COMMON NORMALS: mental status grossly normal, Normal thought process present and cooperative THOUGHT PROCESS: Normal thought process present Skin: COMMON NORMALS: no rashes or lesions noted and no wounds GENERAL SKIN EXAM: no rashes or lesions noted MDM - Recheck/Abnormal Lab/Rx Medical Decision Making Patient presents here with hyperglycemia he is a diabetic he is not DKA his blood sugar has improved he is stable for discharge continue his metformin follow-up with PCP. Medical Records I reviewed the patient's medical records. Lab Data I reviewed the patient's lab results. 12/25/24 09:49 12/25/24 09:49 Laboratory Results WBC 5.52 10^3/uL (3.29-11.43) 12/25/24 09:49 RBC 4.37 10^6/uL (3.85-5.65) 12/25/24 09:49 Hgb 13.50 g/dL (11.27-16.99) 12/25/24 09:49 Hct 40.9 % (37-53) 12/25/24 09:49 MCV 93.6 fl (82-101) 12/25/24 09:49 MCH 30.9 pg (27-33) 12/25/24 09:49 MCHC 33.0 g/dL (30-55) 12/25/24 09:49 RDW 12.7 % (12.1-15.1) 12/25/24 09:49 Plt Count 233 10^3/cmm (157-399) 12/25/24 09:49 MPV 8.7 fL (7.4-10.4) 12/25/24 09:49 Neut % (Auto) 70.4 % 12/25/24 09:49 Lymph % (Auto) 19.0 % 12/25/24 09:49 [place] % (Auto) 9.1 % 12/25/24 09:49 Eos % (Auto) 0.7 % 12/25/24 09:49 Baso % (Auto) 0.4 % 12/25/24 09:49 Neut # (Auto) 3.89 10^3/uL (1.8-7.7) 12/25/24 09:49 Lymph # (Auto) 1.1 10^3/uL (0.8-4.8) 12/25/24 09:49 [place] # (Auto) 0.5 10^3/uL (0.2-0.9) 12/25/24 09:49 Eos # (Auto) 0.0 10^3/uL (0.0-0.8) 12/25/24 09:49 Baso # (Auto) 0.0 10^3/uL (0.0-0.1) 12/25/24 09:49 Nucleated RBC % (auto) 0 % 12/25/24 09:49 Nucleated RBCs # 0.0 /100WBC 12/25/24 09:49 Sodium 135 mmol/L (136-145) L 12/25/24 09:49 Potassium 3.9 mmol/L (3.5-5.1) 12/25/24 09:49 Chloride 93 mmol/L (98-107) L 12/25/24 09:49 Carbon Dioxide 30 mmol/L (22-29) H 12/25/24 09:49 Anion Gap 15.9 (5-19) 12/25/24 09:49 BUN 19 mg/dL (8-23) 12/25/24 09:49 Creatinine 1.0 mg/dL (0.7-1.2) 12/25/24 09:49 GFR Calculation Not Reportable 12/25/24 09:49 Glucose 314 mg/dL (65-115) H 12/25/24 09:49 POC Glucose 294 mg/dL (70-110) H 12/25/24 09:48 Calculated Osmolality 294 mOsm/kg (285-295) 12/25/24 09:49 Calcium 9.1 mg/dL (8.5-10.5) 12/25/24 09:49 Total Bilirubin 1.1 mg/dL (0.15-1.2) 12/25/24 09:49 AST 19 U/L (0-40) 12/25/24 09:49 ALT 24 U/L (0-41) 12/25/24 09:49 Alkaline Phosphatase 77 U/L (40-130) 12/25/24 09:49 Total Protein 6.4 g/dL (6.6-8.7) L 12/25/24 09:49 Albumin 3.9 g/dL (3.5-5.2) 12/25/24 09:49 Globulin 2.5 g/dL (1.3-4.6) 12/25/24 09:49 No radiology studies performed this visit Discharge Plan Discharge Patient Disposition: Home Clinical Impression: Hyperglycemia Condition: Stable Prescriptions: No Action atorvastatin 40 mg tablet 40 mg PO BEDTIME Qty: 90 3RF clopidogrel 75 mg tablet 75 mg PO DAILY Qty: 90 3RF calcium carbonate-vitamin D3 [Calcium 600 + D(3)] 600 mg-10 mcg (400 unit) tablet 1 tab PO DAILY sennosides-docusate sodium 8.6-50 mg tablet 2 tab-cap PO BID oxycodone 5 mg capsule 5 mg PO Q6H PRN (Reason: pain) 30 Days Qty: 120 0RF Rx Instructions: no more than 4 daily sucralfate 100 mg/mL suspension 10 ml PO BID 30 Days Qty: 840 5RF pantoprazole 40 mg tablet,delayed release (DR/EC) 40 mg PO BID 30 Days Qty: 60 5RF metformin 500 mg tablet 500 mg PO DAILY Qty: 90 0RF (DME) lancets [2-In-1 Lancet Device] 30 gauge misc See Rx Instructions .Route Qty: 200 0RF Rx Instructions: As directed (DME) BluLink Glucose Test Strip Strip See Rx Instructions .Route Qty: 100 0RF Rx Instructions: use to check blood sugars twice daily (DME) blood-glucose meter [Blood Glucose Monitoring] Kit See Rx Instructions .ROUTE .MEDSUPPLY Qty: 1 0RF Rx Instructions: Use to check blodo sugars twice daily B Complex 1.7-20-2-1.2 mg/mL liquid 1 ml sublingual DAILY 90 Days Qty: 59 3RF potassium chloride 20 mEq/15 mL liquid 10 meq PO DAILY Qty: 750 4RF prednisone 5 mg tablet 5 mg PO BID Qty: 60 0RF trazodone 50 mg tablet 50 mg PO BEDTIME Rx Instructions: Take 1 tablet by mouth twice daily ondansetron HCl 8 mg tablet 8 mg PO Q8H PRN (Reason: Nausea And Vomiting) metoprolol succinate [Toprol XL] 25 mg tablet extended release 24 hr 25 mg PO DAILY finasteride 5 mg tablet 5 mg PO DAILY Rx Instructions: TAKE 1 TABLET BY MOUTH DAILY abiraterone 250 mg tablet 1,000 mg PO DAILY Rx Instructions: TAKE 4 TABLETS BY MOUTH DAILY Multivitamin 50 Plus Tablet 1 tab PO DAILY levothyroxine 75 mcg tablet 75 mcg PO QAM tamsulosin 0.4 mg capsule 0.4 mg PO BID aspirin 81 mg Tablet,Delayed Release (Dr/Ec) 81 mg PO DAILY Qty: 30 0RF furosemide 20 mg tablet 20 mg PO QAM Rx Instructions: 1 tab daily x 6 days 2 tabs on Thursday Discharge Orders: Discharge ED (Routine); Ordered 12/25/24 Ordered By: Oneil Deleon Referrals: Tiff Salgado FNP [Primary Care Provider, Family Practice] - 4-7 days Discharge Diet: Advance as tolerated Discharge Activity: Resume usual activity Patient Instructions: Diabetic Hyperglycemia (ED) Print Language: Mongolian Coding Level of Care Code ED Grounds Maintenance Supervisor for Laurel Gibbs
[2024-12-25 09:53] LABS: Hematocrit 40.9 % (37-53); Hemoglobin 13.50 g/dL (11.27-16.99); Mean Corpuscular HGB Conc 33.0 g/dL (30-55); Mean Corpuscular Hemoglobin 30.9 pg (27-33); Mean Corpuscular Volume 93.6 fl (82-101); Nucleated Red Blood Cells % 0 %; Platelet Count 233 10^3/cmm (157-399); Red Blood Count 4.37 10^6/uL (3.85-5.65); White Blood Count 5.52 10^3/uL (3.29-11.43)
[2024-12-25 10:12] LABS: Alanine Aminotransferase 24 U/L (0-41); Albumin Level 3.9 g/dL (3.5-5.2); Alkaline Phosphatase 77 U/L (40-130); Anion Gap 15.9 (5-19); Aspartate Amino Transferase 19 U/L (0-40); Blood Urea Nitrogen 19 mg/dL (8-23); Calcium 9.1 mg/dL (8.5-10.5); Carbon Dioxide 30 mmol/L (22-29); Chloride 93 mmol/L (98-107); Creatinine Clr Calc Pharmacy 49.1469; Globulin 2.5 g/dL (1.3-4.6); Glucose 314 mg/dL (65-115); Osmolality Calculated 294 mOsm/kg (285-295); Potassium 3.9 mmol/L (3.5-5.1); Sodium 135 mmol/L (136-145); Total Protein 6.4 g/dL (6.6-8.7)
[2024-12-25 10:40] VITALS: BP 128/85; PULSE 67; O2SAT 92
== END 2024-12-25 10:43 | disposition home or self-care (01) ==
PROVIDERS: Emergency Provider Emergency Medicine; PCP Nurse Practitioner Family
DX: E11.65 Type 2 diabetes mellitus with hyperglycemia (principal); Z79.84 Long term (current) use of oral hypoglycemic drugs; Z79.82 Long term (current) use of aspirin; Z79.02 Long term (current) use of antithrombotics/antiplatelets; Z87.891 Personal history of nicotine dependence
CPT/HCPCS: 36416; 80053; 82962; 85025; 99283

== ENCOUNTER → 2024-12-27 15:24 | Outpatient (BNVA) | payer MEDICARE, BC, SELFPAY | PROVIDERS: PCP Nurse Practitioner Family; Visit Provider Nurse Practitioner Family | DX: E11.9 Type 2 diabetes mellitus without complications (principal) | CPT/HCPCS: 82962 ==

== ENCOUNTER → 2025-01-10 09:17 | Outpatient (BNVA) | payer MEDICARE, BC, SELFPAY | PROVIDERS: PCP Nurse Practitioner Family; Visit Provider Internal Medicine | DX: E11.65 Type 2 diabetes mellitus with hyperglycemia (principal); E03.9 Hypothyroidism, unspecified; E78.2 Mixed hyperlipidemia; Z79.4 Long term (current) use of insulin; C61 Malignant neoplasm of prostate; N17.9 Acute kidney failure, unspecified | CPT/HCPCS: 99204 ==

== ENCOUNTER 2025-01-18 09:00 | Oncology outpatient (recurring) (ONCR) | payer MEDICARE, BC, SELFPAY ==
[2025-01-05 10:30] LABS: Hematocrit 40.0 % (37-53); Hemoglobin 13.00 g/dL (11.27-16.99); Mean Corpuscular HGB Conc 32.5 g/dL (30-55); Mean Corpuscular Hemoglobin 30.5 pg (27-33); Mean Corpuscular Volume 93.9 fl (82-101); Nucleated Red Blood Cells % 0 %; Platelet Count 238 10^3/cmm (157-399); Red Blood Count 4.26 10^6/uL (3.85-5.65); White Blood Count 7.02 10^3/uL (3.29-11.43)
[2025-01-05 10:50] LABS: Alanine Aminotransferase 30 U/L (0-41); Albumin Level 4.0 g/dL (3.5-5.2); Alkaline Phosphatase 67 U/L (40-130); Anion Gap 15.6 (5-19); Aspartate Amino Transferase 29 U/L (0-40); Blood Urea Nitrogen 18 mg/dL (8-23); Calcium 9.3 mg/dL (8.5-10.5); Carbon Dioxide 30 mmol/L (22-29); Chloride 98 mmol/L (98-107); Creatinine Clr Calc Pharmacy 37.3944; Globulin 2.1 g/dL (1.3-4.6); Glucose 143 mg/dL (65-115); Osmolality Calculated 294 mOsm/kg (285-295); Potassium 3.6 mmol/L (3.5-5.1); Sodium 140 mmol/L (136-145); Total Protein 6.1 g/dL (6.6-8.7)
[2025-01-05 10:57] LABS: Prostate Specific Antigen < 0.014 ng/mL (0-4)
[2025-01-05] MEDS: denosumab 120 mg SDV (Infusion Clinic Only) SUBCUT (11:35)
[2025-01-05] MEDS: lidocaine 1% INJ 20 mL SUBCUT (11:38)
[2025-01-18 09:14] LABS: Hematocrit 37.3 % (37-53); Hemoglobin 12.20 g/dL (11.27-16.99); Mean Corpuscular HGB Conc 32.7 g/dL (30-55); Mean Corpuscular Hemoglobin 31.6 pg (27-33); Mean Corpuscular Volume 96.6 fl (82-101); Nucleated Red Blood Cells % 0 %; Platelet Count 229 10^3/cmm (157-399); Red Blood Count 3.86 10^6/uL (3.85-5.65); White Blood Count 5.07 10^3/uL (3.29-11.43)
[2025-01-18 09:45] LABS: Alanine Aminotransferase 21 U/L (0-41); Albumin Level 3.7 g/dL (3.5-5.2); Alkaline Phosphatase 64 U/L (40-130); Anion Gap 11.7 (5-19); Aspartate Amino Transferase 24 U/L (0-40); Blood Urea Nitrogen 14 mg/dL (8-23); Calcium 8.6 mg/dL (8.5-10.5); Carbon Dioxide 30 mmol/L (22-29); Chloride 100 mmol/L (98-107); Creatinine Clr Calc Pharmacy 49.6810; Globulin 2.2 g/dL (1.3-4.6); Glucose 194 mg/dL (65-115); Osmolality Calculated 292 mOsm/kg (285-295); Potassium 3.7 mmol/L (3.5-5.1); Sodium 138 mmol/L (136-145); Total Protein 5.9 g/dL (6.6-8.7)
--- NOTE | 2025-01-18 10:20 | XRR_ITS ---
PROCEDURE INFORMATION: Exam: XR Lumbosacral Spine Exam date and time: 01/18/2025 10:30 AM Age: 89 years old Clinical indication: Low back pain; Prior surgery; Surgery date: 6+ months; Surgery type: Hernia; HX of prostate cancer; Additional info: Lumbar pain TECHNIQUE: Imaging protocol: Radiologic exam of the lumbosacral spine. Views: 2 or 3 views. COMPARISON: CR XR lumbar spine 2-3V* [id number] 06/29/2024 12:54 PM FINDINGS: Bones/joints: There is dextroscoliosis of the lumbar spine. There is disc space narrowing at every level. Marginal osteophytes and sclerosis are present L3-S1. No acute fracture is identified. Soft tissues: Paraspinal soft tissues appear normal. XR/XR lumbar spine 2-3V* [id number] IMPRESSION: Significant multilevel degenerative changes of the spine. Stable since the prior study.
== END 2025-01-24 23:59 | disposition home or self-care (01) ==
PROVIDERS: Internal Medicine; Nurse Practitioner Family; PCP Nurse Practitioner Family; Visit Provider Psychiatry & Neurology Neurology
DX: C61 Malignant neoplasm of prostate; C79.51 Secondary malignant neoplasm of bone; E11.9 Type 2 diabetes mellitus without complications; C79.82 Secondary malignant neoplasm of genital organs; M41.86 Other forms of scoliosis, lumbar region; M51.369 Other intervertebral disc degeneration, lumbar region without mention of lumbar back pain or lower extremity pain; M25.78 Osteophyte, vertebrae; G95.89 Other specified diseases of spinal cord; Z92.3 Personal history of irradiation; Z95.0 Presence of cardiac pacemaker; Z87.891 Personal history of nicotine dependence; Z79.899 Other long term (current) drug therapy; Z79.52 Long term (current) use of systemic steroids; Z53.9 Procedure and treatment not carried out, unspecified reason
CPT/HCPCS: 36415; 72100; 80048; 80053; 83615; 84153; 84403; 85025; 96372; 96401; 99213; 99214; J0897; J9202; J9999

== ENCOUNTER → 2025-01-25 12:28 | Outpatient (BNVA) | payer MEDICARE, BC, SELFPAY | PROVIDERS: PCP Nurse Practitioner Family; Visit Provider Nurse Practitioner Family | DX: I25.10 Atherosclerotic heart disease of native coronary artery without angina pectoris (principal); E78.5 Hyperlipidemia, unspecified; I50.9 Heart failure, unspecified; Z95.0 Presence of cardiac pacemaker; C61 Malignant neoplasm of prostate; C79.51 Secondary malignant neoplasm of bone; Z87.891 Personal history of nicotine dependence | CPT/HCPCS: 99214 ==

== ENCOUNTER 2025-02-21 07:28 | Oncology outpatient (recurring) (ONCR) | payer MEDICARE, BC, SELFPAY ==
--- NOTE | 2025-02-21 07:45 | USCV_ITS ---
Bhavin Godfrey Age: 89 Gender: M : 1935 Exam Date: 02/21/2025 07:55 Ordering Phys: Annelise Banegas Technologist: ROCCO [place] [facility] [place]: Orthopenea BP: 124 / 78 HR: 71 Rhythm: Sinus Technical Quality: Adequate MEASUREMENTS (Male / Female) Normal Values 2D ECHO LV Diastolic Diameter PLAX 4.1 cm 4.2 - 5.9 / 3.9 - 5.3 cm IVS Diastolic Thickness 0.9 cm 0.6 - 1.0 / 0.6 - 0.9 cm IVS Systolic Thickness 1.2 cm LVPW Diastolic Thickness 1.0 cm 0.6 - 1.0 / 0.6 - 0.9 cm LVPW Systolic Thickness 1.4 cm LVOT Diameter 2.0 cm LV Ejection Fraction 2D Teich 43.9 % LV Ejection Fraction MOD 4C 54.6 % LV Ejection Fraction MOD 2C 53.6 % LV Ejection Fraction 2C AL 55.1 % LA Diameter 3.9 cm RA Systolic Volume 4C AL 30.1 ml RA Systolic Volume 4C MOD 28.2 ml LA Sys Volume AL 45.8 cm cubed LA Sys Volume Index AL 24.6 cm cubed/m squared Aorta at Sinotubular Diameter 2.8 cm M-MODE LA Ao Ratio MM 1.3 AV Cusp Separation MM 1.3 cm DOPPLER AV Peak Velocity 114.0 cm/s LVOT Peak Velocity 83.0 cm/s AV Area Cont Eq vti 3.6 cm squared AV Area Cont Eq pk 2.4 cm squared MV Peak Velocity 113.0 cm/s MV Area PHT 5.0 cm squared Mitral E to A Ratio 0.7 TR Peak Velocity 215.0 cm/s TR Peak Gradient 18.5 mmHg TV Peak E Velocity 68.0 cm/s PV Peak Velocity 79.0 cm/s FINDINGS Left Ventricle Normal left ventricular cavity size. Mildly decreased left ventricular systolic function with paradoxical septal motion and severe hypokinesis of the apical septal, apical cap, apical and mid inferior wall segments. Left ventricular ejection fraction is visually 50%. Grade I/IV diastolic dysfunction (abnormal relaxation filling pattern), normal to mildly elevated filling pressures. Normal left ventricular wall thickness. Right Ventricle Normal right ventricular size and systolic function. RVSP could not be calculated due to incomplete tricuspid regurgitation velocity profile. Right Atrium Normal right atrial size. Left Atrium Normal left atrial size. IA Septum Normal appearance of the interatrial septum. Mitral Valve Normal mitral valve structure. Mild mitral valve regurgitation. Aortic Valve Structurally normal trileaflet aortic valve. [id number] aortic valve regurgitation. No aortic valve stenosis. Tricuspid Valve Normal tricuspid valve structure. Trace tricuspid valve regurgitation. Pulmonic Valve Normal pulmonic valve structure. No pulmonic valve stenosis or regurgitation. Pericardium No pericardial effusion. Aorta Normal diameter of the aortic root. Mildly dilated ascending aorta measuring 4.0 cm. IVC Normal IVC diameter. CONCLUSIONS Normal left ventricular cavity size. Mildly decreased left ventricular systolic function with paradoxical septal motion and severe hypokinesis of the apical septal, apical cap, apical and mid inferior wall segments. Left ventricular ejection fraction is visually 50%. Grade I/IV diastolic dysfunction (abnormal relaxation filling pattern), normal to mildly elevated filling pressures. Normal right ventricular size and systolic function. Structurally normal trileaflet aortic valve. [id number] aortic valve regurgitation. No aortic valve stenosis. Bryant Bernal MD, FACC (Electronically Signed) Final Date: 21 February 2025 19:21 S
== END 2025-02-24 23:59 | disposition home or self-care (01) ==
LOC: RAD 07:34 → ONCMED 11:05
PROVIDERS: PCP Nurse Practitioner Family; Visit Provider Psychiatry & Neurology Neurology
DX: C61 Malignant neoplasm of prostate (principal); C79.51 Secondary malignant neoplasm of bone; E11.9 Type 2 diabetes mellitus without complications; C79.82 Secondary malignant neoplasm of genital organs; M41.86 Other forms of scoliosis, lumbar region; M51.369 Other intervertebral disc degeneration, lumbar region without mention of lumbar back pain or lower extremity pain; M25.78 Osteophyte, vertebrae; G95.89 Other specified diseases of spinal cord; Z92.3 Personal history of irradiation; Z95.0 Presence of cardiac pacemaker; Z87.891 Personal history of nicotine dependence; Z79.899 Other long term (current) drug therapy; Z79.52 Long term (current) use of systemic steroids; Z53.9 Procedure and treatment not carried out, unspecified reason; K59.00 Constipation, unspecified; E11.65 Type 2 diabetes mellitus with hyperglycemia; Z79.818 Long term (current) use of other agents affecting estrogen receptors and estrogen levels; I25.5 Ischemic cardiomyopathy; I50.9 Heart failure, unspecified
CPT/HCPCS: 93306

== ENCOUNTER → 2025-03-08 12:44 | Outpatient (BNVA) | payer MEDICARE, BC, SELFPAY | PROVIDERS: PCP Nurse Practitioner Family; Visit Provider Internal Medicine Cardiovascular Disease | DX: Z45.018 Encounter for adjustment and management of other part of cardiac pacemaker (principal) | CPT/HCPCS: 93296 ==

== ENCOUNTER 2025-03-30 09:19 | Outpatient (CLI) | payer MEDICARE, BC, SELFPAY ==
[2025-03-30 10:42] LABS: Anion Gap 12.4 (5-19); Blood Urea Nitrogen 28 mg/dL (8-23); Calcium 9.2 mg/dL (8.5-10.5); Carbon Dioxide 32 mmol/L (22-29); Chloride 99 mmol/L (98-107); Glucose 136 mg/dL (65-115); NT Pro B Type Natriuretic Pept 274 pg/mL (0-450); Osmolality Calculated 296 mOsm/kg (285-295); Potassium 4.4 mmol/L (3.5-5.1); Sodium 139 mmol/L (136-145)
== END 2025-03-30 09:20 | disposition home or self-care (01) ==
LOC: LAB 09:21
PROVIDERS: PCP Nurse Practitioner Family; Visit Provider Nurse Practitioner Family
DX: Q27.8 Other specified congenital malformations of peripheral vascular system (principal); D69.2 Other nonthrombocytopenic purpura; L72.0 Epidermal cyst; L82.1 Other seborrheic keratosis; D18.01 Hemangioma of skin and subcutaneous tissue; L57.8 Other skin changes due to chronic exposure to nonionizing radiation; L82.0 Inflamed seborrheic keratosis; R20.8 Other disturbances of skin sensation; L53.8 Other specified erythematous conditions; L29.89 Other pruritus; L57.0 Actinic keratosis; I50.9 Heart failure, unspecified; R06.09 Other forms of dyspnea
CPT/HCPCS: 17000; 17110; 36415; 80048; 83880; 99213

== ENCOUNTER 2025-04-06 09:19 | Oncology outpatient (recurring) (ONCR) | payer MEDICARE, BC, SELFPAY ==
[2025-04-06 09:56] LABS: Hematocrit 38.7 % (37-53); Hemoglobin 12.40 g/dL (11.27-16.99); Mean Corpuscular HGB Conc 32.0 g/dL (30-55); Mean Corpuscular Hemoglobin 31.5 pg (27-33); Mean Corpuscular Volume 98.2 fl (82-101); Nucleated Red Blood Cells % 0 %; Platelet Count 233 10^3/cmm (157-399); Red Blood Count 3.94 10^6/uL (3.85-5.65); White Blood Count 5.67 10^3/uL (3.29-11.43)
[2025-04-06 10:46] LABS: Alanine Aminotransferase 23 U/L (0-41); Albumin Level 4.0 g/dL (3.5-5.2); Alkaline Phosphatase 59 U/L (40-130); Anion Gap 14.8 (5-19); Aspartate Amino Transferase 21 U/L (0-40); Blood Urea Nitrogen 21 mg/dL (8-23); Calcium 8.6 mg/dL (8.5-10.5); Carbon Dioxide 27 mmol/L (22-29); Chloride 102 mmol/L (98-107); Ferritin 177 ng/mL (30-400); Globulin 2.2 g/dL (1.3-4.6); Glucose 126 mg/dL (65-115); Iron 117 ug/dL (59-158); Osmolality Calculated 295 mOsm/kg (285-295); Potassium 3.8 mmol/L (3.5-5.1); Sodium 140 mmol/L (136-145); Total Iron Binding Capacity 310 mcg/dl; Total Protein 6.2 g/dL (6.6-8.7); Unsaturated Iron Binding 193 ug/dL (112-347); Vitamin B12 1089 pg/mL (232-1245)
[2025-04-06 10:48] LABS: Prostate Specific Antigen < 0.014 ng/mL (0-4)
[2025-04-06] MEDS: lidocaine 1% INJ 20 mL SUBCUT (11:54)
[2025-04-06] MEDS: denosumab 120 mg SDV (Infusion Clinic Only) SUBCUT (12:24)
[2025-04-06 12:40] VITALS: BP 124/74; PULSE 78; RESP 17; TEMP 36.6; O2SAT 97
== END 2025-04-26 23:59 | disposition home or self-care (01) ==
PROVIDERS: PCP Nurse Practitioner Family; Visit Provider Internal Medicine
DX: Z51.11 Encounter for antineoplastic chemotherapy (principal); C61 Malignant neoplasm of prostate; C79.51 Secondary malignant neoplasm of bone; G89.3 Neoplasm related pain (acute) (chronic); Z92.3 Personal history of irradiation; Z87.891 Personal history of nicotine dependence; Z79.899 Other long term (current) drug therapy; Z79.52 Long term (current) use of systemic steroids; Z79.818 Long term (current) use of other agents affecting estrogen receptors and estrogen levels
CPT/HCPCS: 36415; 80053; 82607; 82728; 82746; 83010; 83540; 83550; 83615; 84153; 84403; 85025; 85045; 96372; 96401; 96402; 99214; J0897; J9202; J9999